=== PATIENT | male | born 1930 | race Caucasian/White ===

== ENCOUNTER 2018-04-03 18:54 | Inpatient (IN) | payer BC, OTHER ==
--- NOTE | 2018-04-03 19:57 | PDOC ---
History of Present Illness <Tayla White Carlos - Last Filed: 04/03/18 22:55> - General History Source: Patient, Spouse Exam Limitations: No Limitations - History of Present Illness Initial Comments: 04/03/18 19:46 Pt. is an 87 y.o. M w/ PMHx. of distant CVA (residual left sided weakness), chronic left carotid occlusion, HTN, HLD, and hemorrhoids presents with rectal bleeding. Per Pt.'s who is the better historian, Pt. started bleeding yesterday and it has not stopped. Pt.'s stated that she knows the difference between spotting on toilet paper from the Pt.'s hemorrhoids and a larger bleed. She noticed blood in the toilet but was unable to quantify the amount of blood. Pt. sometimes strains when using the bathroom. Pt. has never had a colonoscopy. Pt. currently takes Warfarin 4mg HS but did not take tonight' s dose because of the bleeding. Pt. endorses spitting up phelgm in the ED but denies nausea or vomit. The phlegm did not contain any blood or discoloration. Pt. denies any bleeding in the gums or hemoptysis. Pt. denies any dizziness, lightheadedness, numbness/tingling, chest pain, abdominal pain, shortness of breath, palpitations, head ache, sudden changes in vision or any other complaints at this time except for a bed sore which is uncomfortable for him. 04/03/18 20:26 Troponin, CBC, INR, Type & Screen, Stool Guaic, Lactated Ringer @ 125ml/hr, IV Protonix, EKG and CXR were ordered. BP rechecked and found to be 110/67. EKG significant for A. Fib with HR in 100s. Case discussed with Dr. Wright(GI) and Dr. Jones(ICU), Pt. accepted to ICU. Timing/Duration: 24 hours Associated Symptoms: reports: denies symptoms Aspirin Received prior to arrival: Yes: no aspirin today Beta Carolina Taken at Home(Core Measure): Yes <Brandon Jose - Last Filed: 04/03/18 23:49> - General Chief Complaint: Rectal Bleed Stated Complaint: Rectal Bleed Time Seen by Provider: 12/30/18 19:09 Past History <Tayla White - Last Filed: 04/03/18 22:55> - Travel Traveled outside of the country in the last 30 days: No Close contact w/someone who was outside of country & ill: No - Past Medical History Asthma: No Cardiac Disorders: No CVA: Yes (left sided weakness) COPD: No Diabetes: No GI Disorders: Yes (hemorrhoids ) HTN: Yes Hypercholesterolemia: Yes Other medical history: left carotid occlusion - Surgical History GI Surgery: Yes (Polypectomy of the esophagus ) - Suicide/Smoking/Psychosocial Hx Smoking History: Former smoker Have you smoked in the past 12 months: No Information on smoking cessation initiated: No Hx Alcohol Use: No Drug/Substance Use Hx: No Hx Substance Use Treatment: No <Brandon Jose - Last Filed: 04/03/18 23:49> - Past Medical History Allergies/Adverse Reactions: Allergies Allergy/AdvReac Type Severity Reaction Status Date / Time No Known Allergies Allergy Verified 04/03/18 20:16 Home Medications: Ambulatory Orders Atorvastatin Ca [Lipitor] 20 mg PO DAILY 04/03/18 Diltiazem [Cardizem -] 120 mg PO DAILY 04/03/18 Latanoprost/Pf [Latanoprost 0.005% Eye Drop] 1 drop OU HS 04/03/18 Sertraline HCl [Zoloft -] 50 mg PO DAILY 04/03/18 Spironolactone [Aldactone] 25 mg PO DAILY 04/03/18 Torsemide [Demadex -] 20 mg PO BID 04/03/18 Warfarin Sodium 4 mg PO HS 04/03/18 Review of Systems - Review of Systems Able to Perform ROS?: Yes Is the patient limited Georgian proficient: No Constitutional: No: Symptoms Reported HEENTM: No: Symptoms Reported Respiratory: No: Symptoms reported Cardiac (ROS): No: Symptoms Reported ABD/GI: Yes: Rectal Bleeding. No: Symptoms Reported : No: Symptoms Reported Musculoskeletal: No: Symptoms Reported Integumentary: Yes: Other (right buttock bed sore ) Neurological: No: Symptoms reported <Brandon Jose - Last Filed: 04/03/18 23:49> *Physical Exam - Vital Signs Last Vital Signs Temp Pulse Resp BP Pulse Ox 97.9 F 78 18 110/67 95 04/03/18 19:07 04/03/18 19:07 04/03/18 19:07 04/03/18 20:30 04/03/18 20:45 <Tayla White - Last Filed: 04/03/18 22:55> - Vital Signs Last Vital Signs Temp Pulse Resp BP Pulse Ox 97.9 F 78 18 86/59 L 90 L 04/03/18 19:07 04/03/18 19:07 04/03/18 19:07 04/03/18 19:07 04/03/18 19:07 - Physical Exam General Appearance: Yes: Appropriately Dressed, Apparent Distress, Obese HEENT: positive: SHEEBA, Normal ENT Inspection, Normal Voice, Symmetrical. negative: Pharyngeal Erythema, Tonsillar Exudate, Tonsillar Erythema, Sinus Tenderness Neck: positive: Supple Respiratory/Chest: positive: Lungs Clear, Normal Breath Sounds, Rapid RR. negative: Accessory Muscle Use, Crackles, Rales, Wheezing Cardiovascular: positive: Regular Rhythm, Regular Rate, S1, S2, Tachycardia. negative: JVD, Murmur Vascular Pulses: Dorsalis-Pedis (R): 1+ ( ), Doralis-Pedis (L): 1+ Gastrointestinal/Abdominal: positive: Normal Bowel Sounds, Soft. negative: Tender, Distended, Guarding, Rebound, Tenderness Male Genitalia: positive: normal prostate Rectal Exam: positive: NL Prostate, normal rectal tone, heme positive stool. negative: normal exam Musculoskeletal: positive: Normal Inspection. negative: CVA Tenderness Extremity: positive: Normal Capillary Refill, Normal Inspection, Coldness (in hands and LE up to the knees ), Erythema (b/l on knees ). negative: Calf Tenderness, Inflammation Integumentary: positive: Dry, Warm, Erythema (over right buttocks and around skin lesions ), Cold (in LE up to the knees ), Ecchymosis, Bruising Neurologic: positive: Fully Oriented, Alert, Normal Mood/Affect, Normal Response , Respond to painful stimul, Numbness (LLE), Sensory Deficit (LLE no sensation from knee to feet), Finger to Nose (decreased speed and accuracy with left arm ) . negative: Facial Droop, Confused, Disoriented <Brandon Jose - Last Filed: 04/03/18 23:49> Moderate Sedation - Procedure Monitoring Vital Signs: Procedure Monitoring Vital Signs Temperature 97.9 F 04/03/18 19:07 Pulse Rate 78 04/03/18 19:07 Respiratory Rate 18 04/03/18 19:07 Blood Pressure 110/67 04/03/18 20:30 O2 Sat by Pulse Oximetry (%) 95 04/03/18 20:45 <Tayla Whiteeloy - Last Filed: 04/03/18 22:55> - Procedure Monitoring Vital Signs: Procedure Monitoring Vital Signs Temperature 97.9 F 04/03/18 19:07 Pulse Rate 78 04/03/18 19:07 Respiratory Rate 18 04/03/18 19:07 Blood Pressure 86/59 L 04/03/18 19:07 O2 Sat by Pulse Oximetry (%) 90 L 04/03/18 19:07 <Brandon Jose - Last Filed: 04/03/18 23:49> ED Treatment Course - LABORATORY CBC & Chemistry Diagram: 04/03/18 20:30 04/03/18 21:45 - ADDITIONAL ORDERS Additional order review: Laboratory Results 04/03/18 04/03/18 04/03/18 20:30 20:30 20:30 PT with INR INR Sodium 138 Potassium 6.1 H* Chloride 107 Carbon Dioxide 21 Anion Gap 11 BUN 68 H Creatinine 2.5 H Creat Clearance w eGFR 24.61 Random Glucose 135 H Calcium 8.7 Total Bilirubin 0.3 AST 25 ALT 28 Alkaline Phosphatase 92 Total Protein 6.8 Albumin 3.4 Stool Occult Blood Positive Crossmatch See Detail 04/03/18 20:30 PT with INR 70.70 H INR 5.89 H* Sodium Potassium Chloride Carbon Dioxide Anion Gap BUN Creatinine Creat Clearance w eGFR Random Glucose Calcium Total Bilirubin AST ALT Alkaline Phosphatase Total Protein Albumin Stool Occult Blood Crossmatch 04/03/18 20:30 RBC 2.94 L MCV 92.9 MCHC 32.6 RDW 15.1 MPV 8.9 Neutrophils % 91.8 H Lymphocytes % 3.4 L D Monocytes % 3.6 L Eosinophils % 0.0 D Basophils % 1.2 - RADIOLOGY Radiology Studies Ordered: Category Date Time Status CHEST X-RAY PORTABLE* [RAD] Stat Radiology 04/03/18 19:15 Taken - Medications Given in the ED: ED Medications Discontinued Medications Generic Name Dose Route Start Last Admin Trade Name Freq PRN Reason Stop Dose Admin Pantoprazole Sodium 40 mg 04/03/18 20:22 04/03/18 20:44 Protonix Iv IVPUSH 04/03/18 20:23 40 mg ONCE ONE Administration <Tayla White - Last Filed: 04/03/18 22:55> - LABORATORY CBC & Chemistry Diagram: 04/03/18 20:30 04/03/18 21:45 <Brandon Jose - Last Filed: 04/03/18 23:49> *DC/Admit/Observation/Transfer - Discharge Dispostion Decision to Admit order: Yes Decision to Admit order Date/Time: 04/03/18 22:54 <Tayla White - Last Filed: 04/03/18 22:55> - Discharge Dispostion Decision to Admit order: Yes <Brandon Jose - Last Filed: 04/03/18 23:49> Diagnosis at time of Disposition: GIB (gastrointestinal bleeding), Supratherapeutic INR, Anemia, Hyperkalemia, Acute kidney insufficiency - Discharge Dispostion Condition at time of disposition: Guarded
[2018-04-03] MEDS ORDERED: PANTOPRAZOLE SODIUM 40 MG VIAL IVPUSH ONE (20:22)
[2018-04-03] MEDS ORDERED: LACTATED RINGERS SOLUTION 1,000 ML/1,000 ML INFUS.BAG IV SCH (20:30)
--- NOTE | 2018-04-03 20:30 | PDOC ---
Attending Attestation - Resident Resident Name: Brandon Jose - ED Attending Attestation I have performed the following: I have examined & evaluated the patient, The case was reviewed & discussed with the resident, I agree w/resident's findings & plan - [facility] HPI: 04/03/18 21:51 Mr. Upton is a 87 year old male with a past medical history significant for CHF, CVA ( residual left-sided weakness) on Warfarin 4 mg q night, and the last dose was last night, HTN, HLD, skin lesion, hx of hemorrhoids presents to the emergency department s/p episodes of blood in the toilet. Per , the past day and a half she has noticed blood in the toilet following episodes of bowel movement. The is unable to quantify the blood. The suggests the bleeding might be secondary to straining while using the bathroom. She states at baseline the patient does having blood on the toilet paper after using the bathroom secondary to hemorrhoids. Denies taking AC today. Denies prior colonoscopy. Denies diarrhea, melena, nausea, vomiting, hematemesis, hemoptysis. Allergies: NKDA Social history: Former smoker, no alcohol or drug use reported. Surgical history: Polypectomy PCP: Dr. Andria Rizo. - Physicial Exam PE: 04/03/18 21:52 malaised appearing, on supp O2. PERRL, EOMI, dry, pale conjunctiva, anicteric; neck supple. lungs clear, RRR, abdomen soft nontender. CARY x4, 4/5 left sided strength 2/2 prior stroke. No peripheral edema. pale color, cool and dry to touch. rectal exam by resident, +shiraz maroon colored blood/ no stool - Critical Care Time Total Critical Care Time: 60 (GIB) Critical Care Statement: The care of this patient involved high complexity decision making to prevent further life threatening deterioration of the patient 's condition and/or to evaluate & treat vital organ system(s) failure or risk of failure. - Medical Decision Making 04/03/18 21:54 See HPI for details Vital signs reviewed, no fever, initially hypotensive and low O2, given supp O2 for comfort and improved, BP improved with gentle hydration Prior notes reviewed, including admissions, discharges and consultations. laboratory results and imaging reviewed, basic labs and lytes with supratherapeutic INR >5 in setting of bleed and anemia, symptomatic. leukocytosis, 16K, stress reaction from bleed. CXR_no acute pathology Cardiac panel_positive trop 0.06-0.07 - no ASA given due to GIB, likely demand. EKG sinus tachy, no interval abnormalities, narrow QRS, slight ST depression in I,AVL. Nonspecific T wave abnormalities ED course: transfuse PRBCs with new anemia 2/2 GIB. lasix in between to prevent TACO/fluid overload. elevated INR, +GIB, so will give 2 units FFP and Vit K for now and reverse - pt consented with for blood/product transfusion in setting of bleed/INR elevation Protonix 40mg x1 MELVIN noted, with hyperkalemia of >6. administered for lasix, albuterol nebs 10mg , insulin/dextrose and calcium. no EKG changes, likely from new MELVIN/ insufficiency. - GI cs with Dr Wright, for GIB, (lower vs upper, no prior colonoscopy). - ICU cs for GIB, hemodynamic monitoring. accepted to ICU for higher level of care Dispo: Admit for GIB, supratherapeutic INR and symptomatic anemia, hyperkalemia/ MELVIN.. Discussed results and management plan with pt and family member at bedside , agree with impression and plan 04/04/18 00:00
[2018-04-03] MEDS ORDERED: PANTOPRAZOLE SODIUM 40 MG/100 ML BAG IVPB ONE (20:37)
[2018-04-03 20:41] LABS: BASO % 1.2 % (0-2.0); HEMATOCRIT 27.3 % (35.4-49); HEMOGLOBIN 8.9 GM/dL (11.7-16.9); LYMPH % 3.4 % (8-40); MCH 30.3 pg (25.7-33.7); MCHC 32.6 g/dl (32.0-35.9); MEAN CELL VOLUME 92.9 fl (80-96); MEAN PLT VOLUME 8.9 fl (7.5-11.1); MONO % 3.6 % (3.8-10.2); NEUT % 91.8 % (42.8-82.8); PLATELET COUNT 349 K/MM3 (134-434); RBC 2.94 M/mm3 (4.00-5.60); RDW 15.1 % (11.9-15.9)
[2018-04-03 20:53] LABS: PROTHROMBIN TIME (PATIENT) 70.7 SEC (9.7-13.0)
[2018-04-03 21:20] LABS: ALBUMIN 3.4 g/dl (3.4-5.0); ALK PHOS 92 U/L (45-117); ANION GAP 11 MMOL/L (8-16); BILIRUBIN,TOTAL 0.3 mg/dL (0.2-1); BLOOD UREA NITROGEN 68 mg/dL (7-18); CALCIUM 8.7 mg/dL (8.5-10.1); CHLORIDE 107 mmol/L (98-107); CO2 21 mmol/L (21-32); CREATININE 2.5 mg/dL (0.55-1.3); GLUCOSE,RANDOM 135 mg/dL (74-106); SGOT/AST 25 U/L (15-37); SGPT/ALT 28 U/L (13-61); SODIUM 138 mmol/L (136-145); TOT PROT 6.8 g/dl (6.4-8.2)
[2018-04-03 21:23] LABS: POTASSIUM 6.1 mmol/L (3.5-5.1)
[2018-04-03 21:25] LABS: INR 5.89 (0.83-1.09)
[2018-04-03] MEDS ORDERED: PHYTONADIONE 5 MG TABLET PO ONE ×3 (21:33→21:58)
[2018-04-03] MEDS ORDERED: PHYTONADIONE 5 MG TABLET ONE ×2 (21:41→23:40)
[2018-04-03] MEDS ORDERED: FUROSEMIDE 40 MG/4 ML INJECTABLE VIAL IVPUSH ONE (21:57)
[2018-04-03 22:10] LABS: ANISOCYTOSIS 1+; MACROCYTOSIS 1+
[2018-04-03 22:11] LABS: PLATELET ESTIMATE ADEQUATE
--- NOTE | 2018-04-03 22:25 | CONSULT ---
Consult Consult Specialty:: Pulm/CCM Referred by:: Dr. Rizo Reason for Consultation:: GI bleed - History of Present Illness History of Present Illness: Briefly, 87 yo elderly M h/o CVA w/ residual L sided weakness, HTN, HLD, and hemorrhoids being evaluated for ICU admission. Patient endorses years of intermittent rectal bleeding and he attributes it to hemorrhoids. However, the bleeding in last 2 days has increased in frequency and amount. It was bright red color and difficult to stop per patient. He's on coumadin 4mg daily and does INR check q1week. Denies headache, dizziness, blurred vision, chest pain, shortness of breath, urinary symptom, fever, or chills. 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 Cardio/Vascular: Yes: HTN, Hyperlipdemia, Other (carotid stenosis) - Alcohol/Substance Use Hx Alcohol Use: No - Smoking History Smoking history: Former smoker Have you smoked in the past 12 months: No Home Medications - Allergies Allergies/Adverse Reactions: Allergies Allergy/AdvReac Type Severity Reaction Status Date / Time No Known Allergies Allergy Verified 04/03/18 20:16 - Home Medications Home Medications: Ambulatory Orders Atorvastatin Ca [Lipitor] 20 mg PO DAILY 04/03/18 Diltiazem [Cardizem -] 120 mg PO DAILY 04/03/18 Latanoprost/Pf [Latanoprost 0.005% Eye Drop] 1 drop OU HS 04/03/18 Sertraline HCl [Zoloft -] 50 mg PO DAILY 04/03/18 Spironolactone [Aldactone] 25 mg PO DAILY 04/03/18 Torsemide [Demadex -] 20 mg PO BID 04/03/18 Warfarin Sodium 4 mg PO HS 04/03/18 Family Disease History - Family Disease History Family Disease History: Heart Disease: Father, CA: Mother (gatric) Review of Systems - Review of Systems Constitutional: reports: No Symptoms Eyes: reports: No Symptoms HENT: reports: No Symptoms Cardiovascular: reports: No Symptoms Respiratory: reports: Cough Gastrointestinal: reports: Rectal Bleeding. denies: Nausea Genitourinary: reports: No Symptoms Neurological: reports: Weakness (L sided residual) Physical Exam Vital Signs: Vital Signs Temperature 97.9 F 04/03/18 19:07 Pulse Rate 78 04/03/18 19:07 Respiratory Rate 18 04/03/18 19:07 Blood Pressure 110/67 04/03/18 20:30 O2 Sat by Pulse Oximetry (%) 95 04/03/18 20:45 Constitutional: Yes: No Distress, Calm Eyes: Yes: Conjunctiva Clear, EOM Intact HENT: Yes: Atraumatic, Normocephalic Neck: Yes: Supple, Trachea Midline Cardiovascular: Yes: Regular Rate and Rhythm Respiratory: Yes: CTA Bilaterally Gastrointestinal: Yes: Normal Bowel Sounds, Soft, Rectal Bleeding. No: Tenderness ...Rectal Exam: Yes: Guaiac Positive Edema: No Peripheral Pulses WNL: Yes Neurological: Yes: Alert, Oriented, Weakness (L sided residual) Labs: CBC, BMP 04/03/18 20:30 Imaging - Results X-ray: Image Reviewed Assessment/Plan 87 yo elderly M h/o CVA w/ residual L sided weakness, HTN, HLD, and hemorrhoids admitted to ICU for bleeding per rectum. GI: bleeding per rectum - hold coumadin - LR @ 125cc/hr - establish 2 18G accesses - IV protonix 40mg - 2 PRBC, vit. 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 Code: atif Jones PGY3 ICU resident Visit type - Emergency Visit Emergency Visit: Yes Care time: The patient presented to the Emergency Department on the above date and was hospitalized for further evaluation of their emergent condition. - New Patient This patient is new to me today: Yes Date on this admission: 04/03/18 - Critical Care Critical Care patient: Yes Total Critical Care Time (in minutes): 35 Critical Care Statement: The care of this patient involved high complexity decision making to prevent further life threatening deterioration of the patient 's condition and/or to evaluate & treat vital organ system(s) failure or risk of failure.
[2018-04-03 22:48] LABS: ANION GAP 10 MMOL/L (8-16); BLOOD UREA NITROGEN 68 mg/dL (7-18); CALCIUM 8.5 mg/dL (8.5-10.1); CHLORIDE 106 mmol/L (98-107); CO2 22 mmol/L (21-32); CREATININE 2.4 mg/dL (0.55-1.3); GLUCOSE,RANDOM 124 mg/dL (74-106); SODIUM 138 mmol/L (136-145)
[2018-04-03 22:51] LABS: POTASSIUM 6.3 mmol/L (3.5-5.1)
[2018-04-03] MEDS ORDERED: CALCIUM GLUCONATE 10% - 1,000 MG/10 ML VIAL IVPB ONE (22:52)
[2018-04-03] MEDS ORDERED: INSULIN REGULAR HUMAN 100 UNITS/ML *VIAL IVPUSH ONE (22:52)
[2018-04-03] MEDS ORDERED: DEXTROSE 50%-WATER - 25 GM/50 ML VIAL IVPUSH ONE (22:53)
[2018-04-03] MEDS: ALBUTEROL SO4 2.5/IPRATROPIUM 0.5 INH SOL 3 ML VIAL.NEB. NEB SCH ×2 (23:30→23:45)
[2018-04-03] MEDS ORDERED: CALCIUM GLUCONATE 10% - 1,000 MG/10 ML VIAL ONE (23:39)
[2018-04-03] MEDS ORDERED: ALBUTEROL SO4 2.5/IPRATROPIUM 0.5 INH SOL 3 ML VIAL.NEB. NEB ONE (23:39)
[2018-04-03] MEDS ORDERED: DEXTROSE 50%-WATER - 25 GM/50 ML VIAL ONE (23:39)
[2018-04-03] MEDS ORDERED: INSULIN REGULAR HUMAN 100 UNITS/ML *VIAL ONE (23:41)
--- NOTE | 2018-04-03 23:41 | HP ---
<Davy Brown - Last Filed: 04/04/18 04:09> CHIEF COMPLAINT: PCP: Dr. Andria Rizo. HISTORY OF PRESENT ILLNESS: pt is poor historian. hx obtained from EMR/ED notes. 87 y.o. M w/ PMH of distant CVA (residual left sided weakness) on Warfarin 4 mg qhs, chronic left carotid occlusion, HTN, HLD, and hemorrhoids presents with rectal bleeding, diarrhea like x2d. Per Pt.'s who is the better historian, Pt. started bleeding yesterday and it has not stopped. Pt.'s stated that she knows the difference between spotting on toilet paper from the Pt.'s hemorrhoids and a larger bleed. She noticed blood in the toilet but was unable to quantify the amount of blood. Pt. sometimes strains when using the bathroom. Pt. has never had a colonoscopy. Pt. currently takes Warfarin 4mg HS but did not take tonight's dose because of the bleeding. Pt. endorses spitting up phlegm in the ED but denies n/v. The phlegm did not contain any blood or discoloration. Pt. denies any bleeding in the gums or hemoptysis. Pt. denies any dizziness, lightheadedness, numbness/tingling, chest pain, abdominal pain, shortness of breath, palpitations, head ache, sudden changes in vision or any other complaints at this time except for a bed sore which is uncomfortable for him. ER course was notable for: (1) ED consulted Dr. Wright(GI) and Dr. Jones(ICU), Pt. accepted to ICU. (2) noted to have hyper K 6.3, pt given cocktail (3)FOBT pos, INR 5.89, Lactic 2.7 Recent Travel: PAST MEDICAL HISTORY: PAST SURGICAL HISTORY: Polypectomy Social History: Smoking: quit 25 yr ago Alcohol: occasional Drugs: denies Family History: Allergies No Known Allergies Allergy (Verified 04/03/18 20:16) HOME MEDICATIONS: Home Medications Medication Instructions Recorded Atorvastatin Ca [Lipitor] 20 mg PO DAILY 04/03/18 Diltiazem [Cardizem -] 120 mg PO DAILY 04/03/18 Latanoprost/Pf [Latanoprost 0.005% 1 drop OU HS 04/03/18 Eye Drop] Sertraline HCl [Zoloft -] 50 mg PO DAILY 04/03/18 Spironolactone [Aldactone] 25 mg PO DAILY 04/03/18 Torsemide [Demadex -] 20 mg PO BID 04/03/18 Warfarin Sodium 4 mg PO HS 04/03/18 REVIEW OF SYSTEMS as per hpi PHYSICAL EXAMINATION Vital Signs - 24 hr 04/03/18 04/03/18 04/03/18 19:07 20:30 20:45 Temperature 97.9 F Pulse Rate 78 Respiratory 18 Rate Blood Pressure 86/59 L Blood Pressure 110/67 [Right Arm] O2 Sat by Pulse 90 L 95 Oximetry (%) GENERAL: AOX3 NAD HEAD: NCAT EYES: sclera anicteric, conjunctiva clear. No lid lag. EARS, NOSE, THROAT: oropharynx clear without exudates. Moist mucous membranes. NECK: Normal range of motion, supple without lymphadenopathy, JVD, or masses. LUNGS: CTAB HEART: tachy irregular, normal S1 and S2 without murmur, rub or gallop. ABDOMEN: Soft, NTND, normoactive bowel sounds, no guarding, no rebound, no masses. MUSCULOSKELETAL: Normal range of motion at all joints. No bony deformities or tenderness. UPPER EXTREMITIES: 2+ pulses, warm, well-perfused. No cyanosis. No clubbing. No peripheral edema. LOWER EXTREMITIES: 2+ pulses, warm, well-perfused. No calf tenderness. No peripheral edema. decreased sensation strength on L side chronic NEUROLOGICAL: Cranial nerves II-XII intact. Normal speech. decreased sensation strength on L side chronic PSYCHIATRIC: Cooperative. Good eye contact. Appropriate mood and affect. SKIN: Warm, dry, normal turgor, no rashes or lesions noted, normal capillary refill. Laboratory Results - last 24 hr 04/03/18 04/03/18 04/03/18 20:30 20:30 20:30 WBC 16.0 H RBC 2.94 L Hgb 8.9 L Hct 27.3 L D MCV 92.9 MCH 30.3 MCHC 32.6 RDW 15.1 Plt Count 349 D MPV 8.9 Absolute Neuts (auto) 14.7 H Neutrophils % 91.8 H Neutrophils % (Manual) 86.0 H Band Neutrophils % 4.0 Lymphocytes % 3.4 L D Lymphocytes % (Manual) 7.0 L Monocytes % 3.6 L Monocytes % (Manual) 3 L Eosinophils % 0.0 D Eosinophils % (Manual) 1.0 Basophils % 1.2 Nucleated RBC % 0 Hypochromia 2+ Platelet Estimate Adequate Platelet Comment Large platelets Anisocytosis 1+ Microcytosis 1+ Macrocytosis 1+ PT with INR 70.70 H INR 5.89 H* Sodium Potassium Chloride Carbon Dioxide Anion Gap BUN Creatinine Creat Clearance w eGFR Random Glucose Lactic Acid Calcium Total Bilirubin AST ALT Alkaline Phosphatase Troponin I Total Protein Albumin Stool Occult Blood Positive Blood Type Antibody Screen Crossmatch 04/03/18 04/03/18 04/03/18 20:30 20:30 20:30 WBC RBC Hgb Hct MCV MCH MCHC RDW Plt Count MPV Absolute Neuts (auto) Neutrophils % Neutrophils % (Manual) Band Neutrophils % Lymphocytes % Lymphocytes % (Manual) Monocytes % Monocytes % (Manual) Eosinophils % Eosinophils % (Manual) Basophils % Nucleated RBC % Hypochromia Platelet Estimate Platelet Comment Anisocytosis Microcytosis Macrocytosis PT with INR INR Sodium 138 Potassium 6.1 H* Chloride 107 Carbon Dioxide 21 Anion Gap 11 BUN 68 H Creatinine 2.5 H Creat Clearance w eGFR 24.61 Random Glucose 135 H Lactic Acid Calcium 8.7 Total Bilirubin 0.3 AST 25 ALT 28 Alkaline Phosphatase 92 Troponin I 0.06 H Total Protein 6.8 Albumin 3.4 Stool Occult Blood Blood Type O POSITIVE Antibody Screen Negative Crossmatch See Detail 04/03/18 04/03/18 21:45 21:45 WBC RBC Hgb Hct MCV MCH MCHC RDW Plt Count MPV Absolute Neuts (auto) Neutrophils % Neutrophils % (Manual) Band Neutrophils % Lymphocytes % Lymphocytes % (Manual) Monocytes % Monocytes % (Manual) Eosinophils % Eosinophils % (Manual) Basophils % Nucleated RBC % Hypochromia Platelet Estimate Platelet Comment Anisocytosis Microcytosis Macrocytosis PT with INR INR Sodium 138 Potassium 6.3 H* Chloride 106 Carbon Dioxide 22 Anion Gap 10 BUN 68 H Creatinine 2.4 H Creat Clearance w eGFR 25.80 Random Glucose 124 H Lactic Acid 2.7 H* Calcium 8.5 Total Bilirubin AST ALT Alkaline Phosphatase Troponin I 0.07 H Total Protein Albumin Stool Occult Blood Blood Type Antibody Screen Crossmatch EKG significant for A. Fib with HR in 100s. narrow QRS, slight ST depression in I,AVL. Nonspecific T wave abnormalities ASSESSMENT/PLAN: 87 y.o. M w/ PMH of distant CVA (residual left sided weakness) on Warfarin 4 mg qhs, CHF, chronic left carotid occlusion, HTN, HLD, and hemorrhoids presents with BRBPR diarrhea like x2d. Acute GIB w/ acute diarrheal illness w/ Supratherapeutic INR: bleeding per rectum - hold coumadin - monitor INR - LR @ 125cc/hr - IV protonix 40 BID - 2 PRBC, vit. K 10mg and 1 FFP ordered in ED - NPO except meds - GI consult - ICU monitoring - hold diuretics - monitor H/H, CBC q6h -monitor for active bleeding - STAT noncon CT A/P to r/o collitis, etc.... Given leukocytosis and diarrhea will cover empirically with zosyn at least until we get imaging leukocytosis w/ neutrophilia - w/ acute diarrheal illness - possibly reactive to acute bleeding - cannot r/o underlying infection - CXR unremarkable, will obtain UA - STAT noncon CT A/P to r/o collitis, etc.... Given leukocytosis and diarrhea will cover empirically with zosyn at least until we get imaging MELVIN on CKD stage 4 - prerenal 2/2 hypotension from GIB? No improvement with initial hydration. Suspecting is 2/2 potential ATN given the hypotension monitor Cr IVF renal consult Check FeUrea, Renal U/S hyperkalemia and lactic acidosis - likely 2/2 prerenal MELVIN 2/2 hypotension from GIB - s/p calcium gluconate IVPB, albuterol , D50 and insulin, in ED -improving 6.3 to 5.6 - f/u repeat BMP - trend lactate and Cr HLD/HTN/ A-fib on warfarin -Hold antihypertensives, statin as strict NPO; restart when clinically appropriate. Hold rate control until stability is ascertained. elevated trop - likely demand ischemia - trend trop EKG significant for A. Fib with HR in 100s. narrow QRS, slight ST depression in I,AVL. Nonspecific T wave abnormalities CVA w/ residual L sided weakness - stable -Hold home meds CHF -monitor fluid management - obtaining outside echoes if available vs. repeating here if needed. FEN LR @ 125cc/hr replete prn NPO except meds ppx SCDs IV protonix 40 BID Code: full Dispo: ICU Visit type - Emergency Visit Emergency Visit: Yes ED Registration Date: 04/03/18 Care time: The patient presented to the Emergency Department on the above date and was hospitalized for further evaluation of their emergent condition. - New Patient This patient is new to me today: Yes Date on this admission: 04/04/18 - Critical Care Critical Care patient: Yes Total Critical Care Time (in minutes): 40 Critical Care Statement: The care of this patient involved high complexity decision making to prevent further life threatening deterioration of the patient 's condition and/or to evaluate & treat vital organ system(s) failure or risk of failure. <Heri Eric - Last Filed: 04/25/18 19:34> Seen and examined;agree with all the above aside form as edited by me in my own note. Thank you. Was present for all vital parts of encounter; plan discussed with me. Agree with above as documented by the resident.
[2018-04-04] MEDS: ALBUTEROL SO4 2.5/IPRATROPIUM 0.5 INH SOL 3 ML VIAL.NEB. NEB SCH ×2 (00:15)
[2018-04-04 01:51] LABS: URINE APPEARANCE CLEAR; URINE BILIRUBIN NEGATIVE (<2.0 mg/dL); URINE COLOR LTYELLOW; URINE GLUCOSE (UA) NEGATIVE (NEGATIVE); URINE KETONE NEGATIVE (NEGATIVE); URINE LEUK ESTERASE 2+ (NEGATIVE); URINE NITRITE NEGATIVE (NEGATIVE); URINE PROTEIN NEGATIVE (NEGATIVE); URINE UROBILINOGEN NEGATIVE mg/dL (0.2-1.0)
[2018-04-04 02:09] LABS: EPI CELLS RARE /HPF (FEW); URINE HYALINE CAST 58 /lpf; URINE MUCUS RARE
[2018-04-04 02:15] LABS: ANION GAP 10 MMOL/L (8-16); BLOOD UREA NITROGEN 68 mg/dL (7-18); CALCIUM 8.8 mg/dL (8.5-10.1); CHLORIDE 109 mmol/L (98-107); CO2 22 mmol/L (21-32); CREATININE 2.5 mg/dL (0.55-1.3); GLUCOSE,RANDOM 55 mg/dL (74-106); POTASSIUM 5.6 mmol/L (3.5-5.1); SODIUM 141 mmol/L (136-145)
[2018-04-04] MEDS ORDERED: SODIUM CHLORIDE 1,000 ML IV STA (02:49)
--- NOTE | 2018-04-04 02:49 | PN ---
Teaching Attending Note Name of Resident: Anders Jay ATTENDING PHYSICIAN STATEMENT I saw and evaluated the patient. I reviewed the resident's note and discussed the case with the resident. I agree with the resident's findings and plan as documented. SUBJECTIVE: Seen and examined; please see resident note for further historical documentation. Briefly, this is an 87 y/o CM with a PMH significant for dementia, CHF (unknown EF), CVA with L-sided weakness, HTN, HLD, Afib on warfarin, hemorrhoids. He presents at the behest of his for rectal bleeding with diarrhea. The aforementioned sx have been going on for a few days but he hasn't had any bleeds since yesterday. It is accompanied by watery diarrhea, though what is coming out is mostly blood. He has no other complaints. He is a poor historian. ICU service accepted him in the ER. 10 sys ROS done and negative aside from HPI PMH and PSH reviewed FH asked and noncontributory Socially significant for his is responsible for his healthcare 2/2 dementia ; no current alcohol or tobacco abuse. Medication list reviewed; pending reconciliation. OBJECTIVE: VS, labs, imaging reviewed NAD, AAO, resting in bed Mildly tender, NT, +BS Lungs CTAB w/ sym exp CN2-12 wnl, no fnd ASSESSMENT AND PLAN: Patient with complex PMH presents with coagulopathy with GIB and positive lactate; pressures were unstable so he was brought to the ICU. 1) Acute GI Bleed (BRBPR) with acute diarrheal illness -Lower GIB vs. brisk upper. No s/s cirrhosis. Protonix IV and GI consultation ; transfuse 1 unit stat and keep one on hold. Monitor q6h CBC and monitor pressures. Cardiac monitoring. Likely will requiure procedure. Strict NPO. Reverse INR and hold warfarin. Monitor on the ICU. Appreciate subspecialty services' presence on this case. -Followup STAT noncontrast abdominal CT to r/o collitis, etc. Given white count , diarrhea will cover empirically with zosyn at least until we get imaging 2) Supratherapeutic INR -Likely due to warfarin use; hold. Given FFP and vitamin K for reversal in ER. Monitor INR closely. Other reversal agent not available here I am told. Consider discussion with patient once stabilized regarding risks and benefits of continuing warfarin. 3) Elevated Lactate -Likely due to increased O2 tissue demand 2/2 #1, #3. Hydrating, transfusing a unit, repeating lactate, monitor. 4) MELVIN -Normal Cr 4 years ago -Could be prerenal, but no improvement with initial hydration. Suspecting is secondary to potential ATN given the hypotension. Check FeUrea, BRUCE, and consult nephrology. Monitor Is and Os, avoid nephrotoxic agents. 5) Afib on warfarin -Consider reevaluating AC use; discuss with him and , possibly PCP. Hold rate control until stability is ascertained. 6) CHF hx -Judicious fluid management; consider obtaining outside echoes if available ( patient doesn't know) vs. repeating here if needed. 7) HTN -Hold antihypertensives; resume when clinically appropriate 8) HLD -Hold statin as strict NPO; restart when clinically appropriate. 9) Prior CVA -Hold home meds 10) Hyperkalemia -Rechecked; not hemolyzed. Given the insulin protocol and did fall appropriately. Continue to follow BMP; etiology likely 2/2 renal disease. DVT px: SCDs GI px: on protonix FENA -Currently bolusing, blood -PRN replete -NPO -OOB2C with assist Full Code
[2018-04-04] MEDS: PIPERACILLIN/TAZOB 2.25 GM 2.25 GM in DEXTROSE 5%-WATER - 50 ML IVPB SCH ×3 (07:39→15:57)
[2018-04-04 08:14] LABS: BASO % 0.5 % (0-2.0); HEMATOCRIT 29.1 % (35.4-49); HEMOGLOBIN 9.6 GM/dL (11.7-16.9); MCH 29.8 pg (25.7-33.7); MEAN CELL VOLUME 90.3 fl (80-96); MEAN PLT VOLUME 8.3 fl (7.5-11.1); MONO % 7.5 % (3.8-10.2); PLATELET COUNT 269 K/MM3 (134-434); RBC 3.22 M/mm3 (4.00-5.60); RDW 15.1 % (11.9-15.9); WHITE BLOOD COUNT 11.1 K/mm3 (4.0-10.0)
[2018-04-04 08:39] LABS: INR 2.94 (0.83-1.09); PROTHROMBIN TIME (PATIENT) 35.1 SEC (9.7-13.0)
[2018-04-04 08:42] LABS: ACTIVATED PTT 33.7 SECONDS (25.2-36.5)
[2018-04-04 08:55] LABS: ALBUMIN 2.9 g/dl (3.4-5.0); ALK PHOS 79 U/L (45-117); ANION GAP 9 MMOL/L (8-16); BILIRUBIN,TOTAL 0.8 mg/dL (0.2-1); BLOOD UREA NITROGEN 61 mg/dL (7-18); CALCIUM 8.6 mg/dL (8.5-10.1); CHLORIDE 109 mmol/L (98-107); CO2 21 mmol/L (21-32); CREATININE 2.2 mg/dL (0.55-1.3); GLUCOSE,RANDOM 122 mg/dL (74-106); MAGNESIUM 2.3 mg/dL (1.8-2.4); PHOSPHOROUS 3.4 mg/dL (2.5-4.9); POTASSIUM 5.2 mmol/L (3.5-5.1); SGOT/AST 34 U/L (15-37); SGPT/ALT 24 U/L (13-61); SODIUM 139 mmol/L (136-145); TOT PROT 5.9 g/dl (6.4-8.2)
[2018-04-04] MEDS ORDERED: PIPERACILLIN/TAZOBACTAM 2.25 GM VIAL IVPB ONE ×2 (09:29→14:54)
[2018-04-04] MEDS ORDERED: DEXTROSE 5%-WATER - 50 ML IVPB ONE ×2 (09:29→14:54)
[2018-04-04] MEDS: PANTOPRAZOLE SODIUM 40 MG VIAL IVPUSH SCH ×2 (09:34→21:14)
[2018-04-04] MEDS ORDERED: PANTOPRAZOLE SODIUM 40 MG VIAL IVPUSH SCH (10:00)
[2018-04-04] MEDS ORDERED: SERTRALINE HCL 50 MG TABLET (FP) PO SCH (10:00)
[2018-04-04] MEDS ORDERED: SPIRONOLACTONE 25 MG TABLET (FP) PO SCH (10:00)
[2018-04-04] MEDS ORDERED: MUPIROCIN 2% TOPICAL OINTMENT FOR DECOLONIZATION NS SCH (10:00)
[2018-04-04] MEDS ORDERED: TORSEMIDE 20 MG TABLET (FP) PO SCH (10:00)
--- NOTE | 2018-04-04 11:36 | PN ---
Physical Exam: SUBJECTIVE: Patient seen and examined at bedside. No acute events overnight, no further bleeding, no pain, no complaints otherwise. OBJECTIVE: Vital Signs Period Temp Pulse Resp BP Sys/Daniel Pulse Ox Last 24 Hr 97.8 F-98.9 F 78-116 13-21 77-118/45-85 90-99 GENERAL: A&Ox3, NAD HEAD: NC/AT EYES: PERRLA, EOMI ENT: MMM NECK: Trachea midline, full range of motion, supple. LUNGS: CTA b/l HEART: tachycardic, irregular rhythm ABDOMEN: +bs, soft, NT, ND EXTREMITIES: 2+ pulses, warm, well-perfused, no edema. NEUROLOGICAL: edge trimmer II-XII intact b/l, mildly decreased strength and sensation with spasticity throughout LUE and LLE PSYCH: Normal mood, normal affect. SKIN: Warm, dry, normal turgor, no rashes or lesions noted Laboratory Results - last 24 hr 04/03/18 04/03/18 04/03/18 01:40 20:30 20:30 WBC 16.0 H RBC 2.94 L Hgb 8.9 L Hct 27.3 L D MCV 92.9 MCH 30.3 MCHC 32.6 RDW 15.1 Plt Count 349 D MPV 8.9 Absolute Neuts (auto) 14.7 H Neutrophils % 91.8 H Neutrophils % (Manual) 86.0 H Band Neutrophils % 4.0 Lymphocytes % 3.4 L D Lymphocytes % (Manual) 7.0 L Monocytes % 3.6 L Monocytes % (Manual) 3 L Eosinophils % 0.0 D Eosinophils % (Manual) 1.0 Basophils % 1.2 Nucleated RBC % 0 Hypochromia 2+ Platelet Estimate Adequate Platelet Comment Large platelets Anisocytosis 1+ Microcytosis 1+ Macrocytosis 1+ PT with INR 70.70 H INR 5.89 H* PTT (Actin FS) Sodium Potassium Chloride Carbon Dioxide Anion Gap BUN Creatinine Creat Clearance w eGFR Random Glucose Lactic Acid Calcium Phosphorus Magnesium Total Bilirubin AST ALT Alkaline Phosphatase Troponin I Total Protein Albumin Urine Color Ltyellow Urine Appearance Clear Urine pH 5.0 Ur Specific [place] 1.012 Urine Protein Negative Urine Glucose (UA) Negative Urine Ketones Negative Urine Blood Negative Urine Nitrite Negative Urine Bilirubin Negative Urine Urobilinogen Negative Ur Leukocyte Esterase 2+ H Urine WBC (Auto) 3 Urine RBC (Auto) <1 Ur Epithelial Cells Rare Hyaline Casts 58 Urine Mucus Rare Urine Creatinine Stool Occult Blood Blood Type Antibody Screen Crossmatch 04/03/18 04/03/18 04/03/18 20:30 20:30 20:30 WBC RBC Hgb Hct MCV MCH MCHC RDW Plt Count MPV Absolute Neuts (auto) Neutrophils % Neutrophils % (Manual) Band Neutrophils % Lymphocytes % Lymphocytes % (Manual) Monocytes % Monocytes % (Manual) Eosinophils % Eosinophils % (Manual) Basophils % Nucleated RBC % Hypochromia Platelet Estimate Platelet Comment Anisocytosis Microcytosis Macrocytosis PT with INR INR PTT (Actin FS) Sodium 138 Potassium 6.1 H* Chloride 107 Carbon Dioxide 21 Anion Gap 11 BUN 68 H Creatinine 2.5 H Creat Clearance w eGFR 24.61 Random Glucose 135 H Lactic Acid Calcium 8.7 Phosphorus Magnesium Total Bilirubin 0.3 AST 25 ALT 28 Alkaline Phosphatase 92 Troponin I Total Protein 6.8 Albumin 3.4 Urine Color Urine Appearance Urine pH Ur Specific [place] Urine Protein Urine Glucose (UA) Urine Ketones Urine Blood Urine Nitrite Urine Bilirubin Urine Urobilinogen Ur Leukocyte Esterase Urine WBC (Auto) Urine RBC (Auto) Ur Epithelial Cells Hyaline Casts Urine Mucus Urine Creatinine Stool Occult Blood Positive Blood Type O POSITIVE Antibody Screen Negative Crossmatch See Detail 04/03/18 04/03/18 04/03/18 20:30 21:45 21:45 WBC RBC Hgb Hct MCV MCH MCHC RDW Plt Count MPV Absolute Neuts (auto) Neutrophils % Neutrophils % (Manual) Band Neutrophils % Lymphocytes % Lymphocytes % (Manual) Monocytes % Monocytes % (Manual) Eosinophils % Eosinophils % (Manual) Basophils % Nucleated RBC % Hypochromia Platelet Estimate Platelet Comment Anisocytosis Microcytosis Macrocytosis PT with INR INR PTT (Actin FS) Sodium 138 Potassium 6.3 H* Chloride 106 Carbon Dioxide 22 Anion Gap 10 BUN 68 H Creatinine 2.4 H Creat Clearance w eGFR 25.80 Random Glucose 124 H Lactic Acid 2.7 H* Calcium 8.5 Phosphorus Magnesium Total Bilirubin AST ALT Alkaline Phosphatase Troponin I 0.06 H 0.07 H Total Protein Albumin Urine Color Urine Appearance Urine pH Ur Specific [place] Urine Protein Urine Glucose (UA) Urine Ketones Urine Blood Urine Nitrite Urine Bilirubin Urine Urobilinogen Ur Leukocyte Esterase Urine WBC (Auto) Urine RBC (Auto) Ur Epithelial Cells Hyaline Casts Urine Mucus Urine Creatinine Stool Occult Blood Blood Type Antibody Screen Crossmatch 04/04/18 04/04/18 04/04/18 01:40 01:40 06:00 WBC RBC Hgb Hct MCV MCH MCHC RDW Plt Count MPV Absolute Neuts (auto) Neutrophils % Neutrophils % (Manual) Band Neutrophils % Lymphocytes % Lymphocytes % (Manual) Monocytes % Monocytes % (Manual) Eosinophils % Eosinophils % (Manual) Basophils % Nucleated RBC % Hypochromia Platelet Estimate Platelet Comment Anisocytosis Microcytosis Macrocytosis PT with INR INR PTT (Actin FS) Sodium 141 Potassium 5.6 H Chloride 109 H Carbon Dioxide 22 Anion Gap 10 BUN 68 H Creatinine 2.5 H Creat Clearance w eGFR 24.61 Random Glucose 55 L Lactic Acid 4.8 H* Calcium 8.8 Phosphorus Magnesium Total Bilirubin AST ALT Alkaline Phosphatase Troponin I Total Protein Albumin Urine Color Urine Appearance Urine pH Ur Specific [place] Urine Protein Urine Glucose (UA) Urine Ketones Urine Blood Urine Nitrite Urine Bilirubin Urine Urobilinogen Ur Leukocyte Esterase Urine WBC (Auto) Urine RBC (Auto) Ur Epithelial Cells Hyaline Casts Urine Mucus Urine Creatinine 119.0 H Stool Occult Blood Blood Type Antibody Screen Crossmatch 04/04/18 04/04/18 04/04/18 08:00 08:00 08:00 WBC 11.1 H RBC 3.22 L Hgb 9.6 L Hct 29.1 L MCV 90.3 MCH 29.8 MCHC 33.0 RDW 15.1 Plt Count 269 D MPV 8.3 Absolute Neuts (auto) 9.5 H Neutrophils % 86.0 H Neutrophils % (Manual) Band Neutrophils % Lymphocytes % 6.0 L D Lymphocytes % (Manual) Monocytes % 7.5 D Monocytes % (Manual) Eosinophils % 0.0 Eosinophils % (Manual) Basophils % 0.5 Nucleated RBC % 0 Hypochromia Platelet Estimate Platelet Comment Anisocytosis Microcytosis Macrocytosis PT with INR 35.10 H INR 2.94 H PTT (Actin FS) 33.7 Sodium 139 Potassium 5.2 H Chloride 109 H Carbon Dioxide 21 Anion Gap 9 BUN 61 H Creatinine 2.2 H Creat Clearance w eGFR 28.52 Random Glucose 122 H Lactic Acid Calcium 8.6 Phosphorus 3.4 Magnesium 2.3 Total Bilirubin 0.8 AST 34 ALT 24 Alkaline Phosphatase 79 Troponin I Total Protein 5.9 L Albumin 2.9 L Urine Color Urine Appearance Urine pH Ur Specific [place] Urine Protein Urine Glucose (UA) Urine Ketones Urine Blood Urine Nitrite Urine Bilirubin Urine Urobilinogen Ur Leukocyte Esterase Urine WBC (Auto) Urine RBC (Auto) Ur Epithelial Cells Hyaline Casts Urine Mucus Urine Creatinine Stool Occult Blood Blood Type Antibody Screen Crossmatch 04/04/18 04/04/18 08:00 08:00 WBC RBC Hgb Hct MCV MCH MCHC RDW Plt Count MPV Absolute Neuts (auto) Neutrophils % Neutrophils % (Manual) Band Neutrophils % Lymphocytes % Lymphocytes % (Manual) Monocytes % Monocytes % (Manual) Eosinophils % Eosinophils % (Manual) Basophils % Nucleated RBC % Hypochromia Platelet Estimate Platelet Comment Anisocytosis Microcytosis Macrocytosis PT with INR INR PTT (Actin FS) Sodium Potassium Chloride Carbon Dioxide Anion Gap BUN Creatinine Creat Clearance w eGFR Random Glucose Lactic Acid 1.4 Calcium Phosphorus Magnesium Total Bilirubin AST ALT Alkaline Phosphatase Troponin I 1.11 H* Total Protein Albumin Urine Color Urine Appearance Urine pH Ur Specific [place] Urine Protein Urine Glucose (UA) Urine Ketones Urine Blood Urine Nitrite Urine Bilirubin Urine Urobilinogen Ur Leukocyte Esterase Urine WBC (Auto) Urine RBC (Auto) Ur Epithelial Cells Hyaline Casts Urine Mucus Urine Creatinine Stool Occult Blood Blood Type Antibody Screen Crossmatch Active Medications Generic Name Dose Route Start Last Admin Trade Name Freq PRN Reason Stop Dose Admin Chlorhexidine Gluconate 1 applic 04/04/18 22:00 Hibiclens For Decolonization - TP HS SAKSHI Diltiazem HCl 120 mg 04/04/18 10:00 04/04/18 09:34 Cardizem Cd - PO 120 mg DAILY SAKSHI Administration Lactated Ringer's 1,000 ml in 1,000 mls @ 125 mls/hr 04/03/18 20:30 04/03/18 20:44 Lactated Ringers Solution IV 04/05/18 04:29 125 mls/hr ASDIR SAKSHI Administration Piperacillin Sod/Tazobactam 50 mls @ 100 mls/hr 04/04/18 03:30 04/04/18 09:34 Sod 2.25 gm/ Dextrose IVPB 04/04/18 15:29 100 mls/hr Q6H-IV SAKSHI Administration Protocol Piperacillin Sod/Tazobactam 50 mls @ 100 mls/hr 04/04/18 21:00 Sod 2.25 gm/ Dextrose IVPB Q6H-IV SAKSHI Latanoprost 1 drop 04/04/18 22:00 Xalatan 0.005% Eye Drops - OU HS SAKSHI Mupirocin 1 applic 04/04/18 10:00 04/04/18 09:37 Bactroban Ointment (For Decolonization) - NS 04/09/18 09:59 1 applic BID SAKSHI Administration Pantoprazole Sodium 40 mg 04/04/18 10:00 04/04/18 09:34 Protonix Iv IVPUSH 40 mg BID SAKSHI Administration ASSESSMENT/PLAN: 87 y/o M w/ PMHx CVA w/ residual left-sided deficits, CHF, Afib on warfarin, HTN , HLD, hemorrhoids, p/w BRBPR and diarrhea x 2 days w/ supratherapeutic INR, additionally found to have elevated creatinine and troponemia #GIB -GI following -H/H and hemodynamics stable s/p transfusion of 2U PRBC and 1U FFP -NPO at present -IV protonix -CT a/p pending -appreciate GI consultation, awaiting further recommendations #nephrology -last known Cr in 2013 was normal, now in MELVIN vs. CKD -nephrology following -electrolyte disturbances corrected w/ acute treatment -judicious fluid use -appreciate nephrology consultation, awaiting further recommendations #ID -WBC and lactate normalized, likely reactive rather than infectious -will d/c Zosyn if CT a/p shows no evidence of colitis -no need for ID consult at this time #CV -troponemia worsening, likely 2/2 demand ischemia, will trend -INR 5.59->2.94 -hold warfarin, trend INR -rate control w/ diltiazem -will need telemetry monitoring upon d/c from ICU #FEN -no IVF at present -monitor and correct electrolytes -NPO #PPx -DVT: SCDs -GI: IV Protonix #code -full #dispo -transfer to telemetry Visit type - Emergency Visit Emergency Visit: No - New Patient This patient is new to me today: Yes Date on this admission: 04/04/18 - Critical Care Critical Care patient: Yes Total Critical Care Time (in minutes): 40 Critical Care Statement: The care of this patient involved high complexity decision making to prevent further life threatening deterioration of the patient 's condition and/or to evaluate & treat vital organ system(s) failure or risk of failure.
--- NOTE | 2018-04-04 11:40 | CON.CARD ---
Consult Consult Specialty:: cardio - History of Present Illness Chief Complaint: blood in stool History of Present Illness: 87 M here with blood in stool. is on warfarin for h/o afib (per dr holley, pt's PMD)--sees dr leahy for cardio. has h/o hemorrhoids with toilet paper spotting but now with ongoing, persistent , more voluminous rectal bleeding. in ER: 1) rapid AF 2) hypotensive to 70s-80s systolic--improved s/p IVF resuscitation 3) INR 5.8 4) lactate 4.8-->normalized after fluids 5) MELVIN with K 6.3 pt denies h/o CAD/PCI or NC. denies cp or sob at any time at home or here. 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 Cardio/Vascular: Yes: HTN, Hyperlipdemia, Other (carotid stenosis) - Alcohol/Substance Use Hx Alcohol Use: No - Smoking History Smoking history: Former smoker Have you smoked in the past 12 months: No Home Medications - Allergies Allergies/Adverse Reactions: Allergies Allergy/AdvReac Type Severity Reaction Status Date / Time No Known Allergies Allergy Verified 04/03/18 20:16 - Home Medications Home Medications: Ambulatory Orders Atorvastatin Ca [Lipitor] 20 mg PO DAILY 04/03/18 Diltiazem [Cardizem -] 120 mg PO DAILY 04/03/18 Latanoprost/Pf [Latanoprost 0.005% Eye Drop] 1 drop OU HS 04/03/18 Sertraline HCl [Zoloft -] 50 mg PO DAILY 04/03/18 Spironolactone [Aldactone] 25 mg PO DAILY 04/03/18 Torsemide [Demadex -] 20 mg PO BID 04/03/18 Warfarin Sodium 4 mg PO HS 04/03/18 Family Disease History - Family Disease History Family Disease History: Heart Disease: Father, CA: Mother (gatric) Review of Systems - Review of Systems Constitutional: denies: Chills, Fever Eyes: denies: Eye Pain HENT: denies: Nasal Congestion Neck: denies: Stiffness Cardiovascular: denies: Palpitations Respiratory: denies: Orthopnea, PND Gastrointestinal: denies: Diarrhea, Vomiting Genitourinary: denies: Burning, Hematuria Musculoskeletal: denies: Muscle Pain Integumentary: denies: Rash Neurological: denies: Numbness, Seizure, Syncope Endocrine: denies: Excessive Sweating Hematology/Lymphatic: denies: Excessive Bleeding Vital Signs: Vital Signs Temperature 97.8 F 04/04/18 02:23 Pulse Rate 103 H 04/04/18 08:00 Respiratory Rate 21 H 04/04/18 08:21 Blood Pressure 115/85 04/04/18 08:00 O2 Sat by Pulse Oximetry (%) 99 04/04/18 08:21 Constitutional: Yes: Well Nourished, No Distress Eyes: No: Sclera Icterus HENT: No: Nasal Congestion Neck: No: Decreased ROM Respiratory: Yes: CTA Bilaterally. No: Accessory Muscle Use, Rales, Wheezes Gastrointestinal: Yes: Normal Bowel Sounds. No: Distention, Hepatomegaly, Palpable Mass, Tenderness Cardiovascular: Yes: Pulse Irregular JVD: No Carotid Bruit: No PMI: Non-Displaced Heart Sounds: Yes: S1, S2. No: Gallop Murmur: No: Systolic Murmur, Diastolic Murmur Musculoskeletal: Yes: Other (No kyphosis) Extremities: No: Cool, Cyanosis Edema: No Peripheral Pulses: 2+ Left Carotid, 2+ Right Carotid, 2+ Left Doralis Pedis, 2+ Right Dorsalis Pedis Integumentary: No: Jaundice Neurological: Yes: Alert, Oriented (x3) Psychiatric: No: Agitated - Other Data Labs, Other Data: CBC, BMP 04/04/18 08:00 04/04/18 08:00 INR, PTT INR 2.94 (0.83-1.09) H 04/04/18 08:00 Troponin, BNP 04/03/18 04/03/18 04/04/18 20:30 21:45 08:00 Troponin I 0.06 H 0.07 H 1.11 H* Troponin, BNP 04/03/18 04/03/18 04/04/18 20:30 21:45 08:00 Troponin I 0.06 H 0.07 H 1.11 H* Laboratory Tests 04/03/18 04/03/18 04/04/18 20:30 21:45 01:40 WBC Hgb Plt Count INR 5.89 H* Sodium 138 Potassium 6.3 H* BUN 68 H Creatinine 2.4 H Lactic Acid 4.8 H* AST ALT Troponin I 0.07 H 04/04/18 04/04/18 04/04/18 08:00 08:00 08:00 WBC 11.1 H Hgb 9.6 L Plt Count 269 D INR 2.94 H Sodium 139 Potassium 5.2 H BUN 61 H Creatinine 2.2 H Lactic Acid AST 34 ALT 24 Troponin I 04/04/18 04/04/18 08:00 08:00 WBC Hgb Plt Count INR Sodium Potassium BUN Creatinine Lactic Acid 1.4 AST ALT Troponin I 1.11 H* Assessment/Plan EKG 04/03 (19:17): poor baseline, ? fib/flutter. HR 106. 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 [address]p ST-Ts I/avL CXR: clear lungs/pleura tele: afib, rapid HRs LGIB: -per GI -INR was high, warfarin reversed (vit K 5mg x 1)--INR coming down Afib: -rapid HR due to active bleeding with hypotension, improving with improved hemodynamics -low BP limits AVN blocking med options. low GFR risk for digoxin -currently hemodynamically stable s/p IVF. will start with low dose IV lopressor (hold cardizem cd). -h/o CVA -on warfarin--being held for LGIB with hemodynamic consequences. resume later after FOC once cleared by GI NSTEMI: -trop 0.07-->1.11 -likely secondary to acute hypotension/tachy, i.e. deman ischemia/Type II NC -rpt ECG, trend enzymes -not a candidate for anti-PLTs, AC or invasive interventions regardless -aggressive treatment of GIB as doing, monitor H/H and transfuse for Hgb < 8 -HR control with b-hunter, as above -observe for sx's of cardiac ischemia -check echo -should have risk-stratification with pharm MPI once acute issues resolve MELVIN: -baseline creat 1.1 in 02/20 -initial creat 2.4, coming down with IVF -cont IV fluid aggressively, tx of active bleeding HTN: -hold home anti-hypertensive meds for now, given hemodynamically unstable with bleeding HPL, h/o carotid dz: -on atorva 20 at home--cont once cleared for PO by GI plan d/w'd ICU team approx time spent in data review, pt exam, and formulating plan of potentially life threatening complicatinos = 36 min
[2018-04-04] MEDS ORDERED: METOPROLOL TARTRATE 5 MG/5 ML VIAL IVPUSH PRN (11:44)
[2018-04-04] MEDS ORDERED: LACTATED RINGERS SOLUTION 1,000 ML/1,000 ML INFUS.BAG IV SCH (11:45)
[2018-04-04] MEDS ORDERED: METOPROLOL TARTRATE 5 MG/5 ML VIAL IVPUSH SCH (11:45)
--- NOTE | 2018-04-04 11:47 | PN ---
Teaching Attending Note Name of Resident: Noah Manrique ATTENDING PHYSICIAN STATEMENT I saw and evaluated the patient. I reviewed the resident's note and discussed the case with the resident. I agree with the resident's findings and plan as documented. SUBJECTIVE: Patient seen and examined in the ICU. Awake and alert. Denies CP or SOB. No abdominal pain. No occult bleeding noted. Intake & Output 04/01/18 04/02/18 04/03/18 04/04/18 23:59 23:59 23:59 23:59 Intake Total 2049 Balance 2049 Weight 200 lb 250 lb 12.8 oz Last Vital Signs Temp Pulse Resp BP Pulse Ox 97.8 F 103 H 21 H 115/85 99 04/04/18 02:23 04/04/18 08:00 04/04/18 08:21 04/04/18 08:00 04/04/18 08:21 Active Medications Chlorhexidine Gluconate (Hibiclens For Decolonization -) 1 applic TP HS [facility] Diltiazem HCl (Cardizem Cd -) 120 mg PO DAILY [facility] Last Admin: 04/04/18 09:34 Dose: 120 mg Piperacillin Sod/Tazobactam (Sod 2.25 gm/ Dextrose) 50 mls @ 100 mls/hr IVPB Q6H-IV SAKSHI; Protocol Stop: 04/04/18 15:29 Last Admin: 04/04/18 09:34 Dose: 100 mls/hr Piperacillin Sod/Tazobactam (Sod 2.25 gm/ Dextrose) 50 mls @ 100 mls/hr IVPB Q6H-IV SAKSHI Latanoprost (Xalatan 0.005% Eye Drops -) 1 drop OU HS [facility] Mupirocin (Bactroban Ointment (For Decolonization) -) 1 applic NS BID [facility] Stop: 04/09/18 09:59 Last Admin: 04/04/18 09:37 Dose: 1 applic Pantoprazole Sodium (Protonix Iv) 40 mg IVPUSH BID [facility] Last Admin: 04/04/18 09:34 Dose: 40 mg Constitutional: Yes: No Distress, Calm Eyes: Yes: Conjunctiva Clear, EOM Intact HENT: Yes: Atraumatic, Normocephalic Neck: Yes: Supple, Trachea Midline Cardiovascular: Yes: Regular Rate and Rhythm Respiratory: Yes: CTA Bilaterally Gastrointestinal: Yes: Normal Bowel Sounds, Soft, Rectal Bleeding. No: Tenderness ...Rectal Exam: Yes: Guaiac Positive Edema: No Peripheral Pulses WNL: Yes Neurological: Yes: Alert, Oriented, Weakness (L sided residual) Labs: Laboratory Results - last 24 hr 04/03/18 04/03/18 04/03/18 01:40 20:30 20:30 WBC 16.0 H RBC 2.94 L Hgb 8.9 L Hct 27.3 L D MCV 92.9 MCH 30.3 MCHC 32.6 RDW 15.1 Plt Count 349 D MPV 8.9 Absolute Neuts (auto) 14.7 H Neutrophils % 91.8 H Neutrophils % (Manual) 86.0 H Band Neutrophils % 4.0 Lymphocytes % 3.4 L D Lymphocytes % (Manual) 7.0 L Monocytes % 3.6 L Monocytes % (Manual) 3 L Eosinophils % 0.0 D Eosinophils % (Manual) 1.0 Basophils % 1.2 Nucleated RBC % 0 Hypochromia 2+ Platelet Estimate Adequate Platelet Comment Large platelets Anisocytosis 1+ Microcytosis 1+ Macrocytosis 1+ PT with INR 70.70 H INR 5.89 H* PTT (Actin FS) Sodium Potassium Chloride Carbon Dioxide Anion Gap BUN Creatinine Creat Clearance w eGFR Random Glucose Lactic Acid Calcium Phosphorus Magnesium Total Bilirubin AST ALT Alkaline Phosphatase Troponin I Total Protein Albumin Urine Color Ltyellow Urine Appearance Clear Urine pH 5.0 Ur Specific [place] 1.012 Urine Protein Negative Urine Glucose (UA) Negative Urine Ketones Negative Urine Blood Negative Urine Nitrite Negative Urine Bilirubin Negative Urine Urobilinogen Negative Ur Leukocyte Esterase 2+ H Urine WBC (Auto) 3 Urine RBC (Auto) <1 Ur Epithelial Cells Rare Hyaline Casts 58 Urine Mucus Rare Urine Creatinine Stool Occult Blood Blood Type Antibody Screen Crossmatch 04/03/18 04/03/18 04/03/18 20:30 20:30 20:30 WBC RBC Hgb Hct MCV MCH MCHC RDW Plt Count MPV Absolute Neuts (auto) Neutrophils % Neutrophils % (Manual) Band Neutrophils % Lymphocytes % Lymphocytes % (Manual) Monocytes % Monocytes % (Manual) Eosinophils % Eosinophils % (Manual) Basophils % Nucleated RBC % Hypochromia Platelet Estimate Platelet Comment Anisocytosis Microcytosis Macrocytosis PT with INR INR PTT (Actin FS) Sodium 138 Potassium 6.1 H* Chloride 107 Carbon Dioxide 21 Anion Gap 11 BUN 68 H Creatinine 2.5 H Creat Clearance w eGFR 24.61 Random Glucose 135 H Lactic Acid Calcium 8.7 Phosphorus Magnesium Total Bilirubin 0.3 AST 25 ALT 28 Alkaline Phosphatase 92 Troponin I Total Protein 6.8 Albumin 3.4 Urine Color Urine Appearance Urine pH Ur Specific [place] Urine Protein Urine Glucose (UA) Urine Ketones Urine Blood Urine Nitrite Urine Bilirubin Urine Urobilinogen Ur Leukocyte Esterase Urine WBC (Auto) Urine RBC (Auto) Ur Epithelial Cells Hyaline Casts Urine Mucus Urine Creatinine Stool Occult Blood Positive Blood Type O POSITIVE Antibody Screen Negative Crossmatch See Detail 04/03/18 04/03/18 04/03/18 20:30 21:45 21:45 WBC RBC Hgb Hct MCV MCH MCHC RDW Plt Count MPV Absolute Neuts (auto) Neutrophils % Neutrophils % (Manual) Band Neutrophils % Lymphocytes % Lymphocytes % (Manual) Monocytes % Monocytes % (Manual) Eosinophils % Eosinophils % (Manual) Basophils % Nucleated RBC % Hypochromia Platelet Estimate Platelet Comment Anisocytosis Microcytosis Macrocytosis PT with INR INR PTT (Actin FS) Sodium 138 Potassium 6.3 H* Chloride 106 Carbon Dioxide 22 Anion Gap 10 BUN 68 H Creatinine 2.4 H Creat Clearance w eGFR 25.80 Random Glucose 124 H Lactic Acid 2.7 H* Calcium 8.5 Phosphorus Magnesium Total Bilirubin AST ALT Alkaline Phosphatase Troponin I 0.06 H 0.07 H Total Protein Albumin Urine Color Urine Appearance Urine pH Ur Specific [place] Urine Protein Urine Glucose (UA) Urine Ketones Urine Blood Urine Nitrite Urine Bilirubin Urine Urobilinogen Ur Leukocyte Esterase Urine WBC (Auto) Urine RBC (Auto) Ur Epithelial Cells Hyaline Casts Urine Mucus Urine Creatinine Stool Occult Blood Blood Type Antibody Screen Crossmatch 04/04/18 04/04/18 04/04/18 01:40 01:40 06:00 WBC RBC Hgb Hct MCV MCH MCHC RDW Plt Count MPV Absolute Neuts (auto) Neutrophils % Neutrophils % (Manual) Band Neutrophils % Lymphocytes % Lymphocytes % (Manual) Monocytes % Monocytes % (Manual) Eosinophils % Eosinophils % (Manual) Basophils % Nucleated RBC % Hypochromia Platelet Estimate Platelet Comment Anisocytosis Microcytosis Macrocytosis PT with INR INR PTT (Actin FS) Sodium 141 Potassium 5.6 H Chloride 109 H Carbon Dioxide 22 Anion Gap 10 BUN 68 H Creatinine 2.5 H Creat Clearance w eGFR 24.61 Random Glucose 55 L Lactic Acid 4.8 H* Calcium 8.8 Phosphorus Magnesium Total Bilirubin AST ALT Alkaline Phosphatase Troponin I Total Protein Albumin Urine Color Urine Appearance Urine pH Ur Specific [place] Urine Protein Urine Glucose (UA) Urine Ketones Urine Blood Urine Nitrite Urine Bilirubin Urine Urobilinogen Ur Leukocyte Esterase Urine WBC (Auto) Urine RBC (Auto) Ur Epithelial Cells Hyaline Casts Urine Mucus Urine Creatinine 119.0 H Stool Occult Blood Blood Type Antibody Screen Crossmatch 04/04/18 04/04/18 04/04/18 08:00 08:00 08:00 WBC 11.1 H RBC 3.22 L Hgb 9.6 L Hct 29.1 L MCV 90.3 MCH 29.8 MCHC 33.0 RDW 15.1 Plt Count 269 D MPV 8.3 Absolute Neuts (auto) 9.5 H Neutrophils % 86.0 H Neutrophils % (Manual) Band Neutrophils % Lymphocytes % 6.0 L D Lymphocytes % (Manual) Monocytes % 7.5 D Monocytes % (Manual) Eosinophils % 0.0 Eosinophils % (Manual) Basophils % 0.5 Nucleated RBC % 0 Hypochromia Platelet Estimate Platelet Comment Anisocytosis Microcytosis Macrocytosis PT with INR 35.10 H INR 2.94 H PTT (Actin FS) 33.7 Sodium 139 Potassium 5.2 H Chloride 109 H Carbon Dioxide 21 Anion Gap 9 BUN 61 H Creatinine 2.2 H Creat Clearance w eGFR 28.52 Random Glucose 122 H Lactic Acid Calcium 8.6 Phosphorus 3.4 Magnesium 2.3 Total Bilirubin 0.8 AST 34 ALT 24 Alkaline Phosphatase 79 Troponin I Total Protein 5.9 L Albumin 2.9 L Urine Color Urine Appearance Urine pH Ur Specific [place] Urine Protein Urine Glucose (UA) Urine Ketones Urine Blood Urine Nitrite Urine Bilirubin Urine Urobilinogen Ur Leukocyte Esterase Urine WBC (Auto) Urine RBC (Auto) Ur Epithelial Cells Hyaline Casts Urine Mucus Urine Creatinine Stool Occult Blood Blood Type Antibody Screen Crossmatch 04/04/18 04/04/18 08:00 08:00 WBC RBC Hgb Hct MCV MCH MCHC RDW Plt Count MPV Absolute Neuts (auto) Neutrophils % Neutrophils % (Manual) Band Neutrophils % Lymphocytes % Lymphocytes % (Manual) Monocytes % Monocytes % (Manual) Eosinophils % Eosinophils % (Manual) Basophils % Nucleated RBC % Hypochromia Platelet Estimate Platelet Comment Anisocytosis Microcytosis Macrocytosis PT with INR INR PTT (Actin FS) Sodium Potassium Chloride Carbon Dioxide Anion Gap BUN Creatinine Creat Clearance w eGFR Random Glucose Lactic Acid 1.4 Calcium Phosphorus Magnesium Total Bilirubin AST ALT Alkaline Phosphatase Troponin I 1.11 H* Total Protein Albumin Urine Color Urine Appearance Urine pH Ur Specific [place] Urine Protein Urine Glucose (UA) Urine Ketones Urine Blood Urine Nitrite Urine Bilirubin Urine Urobilinogen Ur Leukocyte Esterase Urine WBC (Auto) Urine RBC (Auto) Ur Epithelial Cells Hyaline Casts Urine Mucus Urine Creatinine Stool Occult Blood Blood Type Antibody Screen Crossmatch Assessment/Plan Acute GI bleed in the setting of AC for previous CVA CVA w/ residual L sided weakness HTN HLD Hemorrhoids Leukocytosis: Source to be determined Lactic Acidosis Hyperkalemia Elevated troponin likely due to demand ischemia MELVIN Normal transfusion threshold (transfuse for Hgb < 8) O2 as needed Strict I & O IVF D/W Cardiology: Lopressor for rate control PPI PO as per GI Noted empiric ABX: low suspicion of infectious colitis Follow Creatinine Cardiac Telemetry monitoring Dr Gray Critical care time spent in reviewing chart, evaluating patient and formulating plan - 36 minutes.
--- NOTE | 2018-04-04 12:15 | EKG ---
Test Reason : Blood Pressure : / mmHG Vent. 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
--- NOTE | 2018-04-04 12:18 | EKG ---
Test Reason : Blood Pressure : / mmHG Vent. 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 RATE HAS INCREASED BY 47 BPM T WAVE VARIATION Confirmed by JESSICA CARD MD ([id number]) on 04/04/2018 12:17:50 PM Referred By: Confirmed By:JESSICA CARD MD
--- NOTE | 2018-04-04 12:25 | CON.GI ---
Consult Consult Specialty:: GI Referred by:: hospitalist - History of Present Illness Chief Complaint: rectal bleeding History of Present Illness: 87 y/o male PHx. of distant CVA (residual left sided weakness), chronic left carotid occlusion, HTN, HLD, and hemorrhoids presents with rectal bleeding. The rectal bleeding started 04/02/18 at around 9 am. He had several episodes which he attributed them from hemorrhoidal bleeding. The bleeding continued up to the time of the ER visit. Since admission there were no further rectal bleeding noted. He could not remember if he had a colonoscopy in . He denies any LOC, SOB and weakness. In the ER he was noted to be tachycardic despite being on Beta hunter. He was transfused 2 units of PRBC overnight and 2 units of FFP. He is asymptomatic. 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 Cardio/Vascular: Yes: HTN, Hyperlipdemia, Other (carotid stenosis) - Alcohol/Substance Use Hx Alcohol Use: No - Smoking History Smoking history: Former smoker Have you smoked in the past 12 months: No Home Medications - Allergies Allergies/Adverse Reactions: Allergies Allergy/AdvReac Type Severity Reaction Status Date / Time No Known Allergies Allergy Verified 04/03/18 20:16 - Home Medications Home Medications: Ambulatory Orders Atorvastatin Ca [Lipitor] 20 mg PO DAILY 04/03/18 Diltiazem [Cardizem -] 120 mg PO DAILY 04/03/18 Latanoprost/Pf [Latanoprost 0.005% Eye Drop] 1 drop OU HS 04/03/18 Sertraline HCl [Zoloft -] 50 mg PO DAILY 04/03/18 Spironolactone [Aldactone] 25 mg PO DAILY 04/03/18 Torsemide [Demadex -] 20 mg PO BID 04/03/18 Warfarin Sodium 4 mg PO HS 04/03/18 Family Disease History - Family Disease History Family Disease History: Heart Disease: Father, CA: Mother (gatric) Review of Systems - Review of Systems Constitutional: denies: No Symptoms, Chills, Diaphoresis, Fever, Lethargy, Loss of Appetite, Malaise, Night Sweats, Unintentional Wgt. Loss, Weakness, Other Eyes: denies: No Symptoms, Blind Spots, Blurred Vision, Double Vision, Eye Pain , Floaters, Photophobia, Recent Change in Vision, Other HENT: denies: No Symptoms, Difficult Swallowing, Ear Discharge, Ear Pain, Epistaxis, Gingival Bleeding, Hearing Loss, Mouth Swelling, Nasal Congestion, Ocular Prosthesis, Throat Pain, Toothache, Ringing in Ears, Other Neck: denies: No Symptoms, Decreased ROM, Lumps, Pain on Movement, Stiffness, Swollen Glands, Tenderness, Other Cardiovascular: denies: No Symptoms, Chest Pain, Edema, Palpitations, Shortness of Breath, Other Physical Exam-GI Vital Signs: Vital Signs Temperature 97.8 F 04/04/18 02:23 Pulse Rate 103 H 04/04/18 08:00 Respiratory Rate 21 H 04/04/18 08:21 Blood Pressure 115/85 04/04/18 08:00 O2 Sat by Pulse Oximetry (%) 99 04/04/18 08:21 Constitutional: Yes: No Distress Eyes: Yes: Conjunctiva Clear, Occular Prosthesis Neck: Yes: Supple Cardiovascular: Yes: Regular Rate and Rhythm. No: JVD Respiratory: Yes: Other (bibasilar crackles) Gastrointestinal Inspection: No: Ascites ...Palpate: Yes: Soft. No: Firm/Rigid, Guarding, Hepatomegaly, Mass, Pulsatile Mass, Splenomegaly, Tenderness, Tenderness, Epigastium, Tenderness, Rebound Labs: CBC, BMP 04/04/18 08:00 04/04/18 08:00 INR, PTT INR 2.94 (0.83-1.09) H 04/04/18 08:00 Hepatic Panel Total Bilirubin 0.8 mg/dL (0.2-1) 04/04/18 08:00 AST 34 U/L (15-37) 04/04/18 08:00 ALT 24 U/L (13-61) 04/04/18 08:00 Alkaline Phosphatase 79 U/L (45-117) 04/04/18 08:00 Albumin 2.9 g/dl (3.4-5.0) L 04/04/18 08:00 Home Medications Medication Instructions Recorded Atorvastatin Ca [Lipitor] 20 mg PO DAILY 04/03/18 Diltiazem [Cardizem -] 120 mg PO DAILY 04/03/18 Latanoprost/Pf [Latanoprost 0.005% 1 drop OU HS 04/03/18 Eye Drop] Sertraline HCl [Zoloft -] 50 mg PO DAILY 04/03/18 Spironolactone [Aldactone] 25 mg PO DAILY 04/03/18 Torsemide [Demadex -] 20 mg PO BID 04/03/18 Warfarin Sodium 4 mg PO HS 04/03/18 Assessment/Plan Lower GI bleeding patient has not been bleeding for more than 24 hours,WBC has improved. Most likely the patient had a diverticular bleeding that has resolved R> clear liquid diet for colonoscopy once medically cleared Dr Cervantes will follow the patient.
--- NOTE | 2018-04-04 12:36 | CONSULT ---
Consultation: REQUESTING PROVIDER: Dr. Brown CONSULT REQUEST: We have been asked to medically evaluate this patient for MELVIN vs ATN. HISTORY OF PRESENT ILLNESS: Nephrology consult Pt is an 87 y/o man with PMH HTN, HLD, chronic left carotid occlusion, prior CVA on warfarin who presented to ER with rectal bleed. Pt states he has had rectal bleeding before due to his chronic hemorrhoids, but this episode was worse. Was found to have elevated INR and GIB and was admitted to ICU. Court Interpreter found to be elevated. Neprhology called to evaluate for MELVIN vs ATN. Pt denies any PMH kidney problems. Denies burning, frequency, dark/bloody urine. No abdominal pain. REVIEW OF SYSTEMS: CONSTITUTIONAL: Absent: fever, chills, diaphoresis, generalized weakness, malaise, loss of appetite, weight change HEENT: Absent: rhinorrhea, nasal congestion, throat pain, throat swelling, difficulty swallowing, mouth swelling, ear pain, eye pain, visual changes CARDIOVASCULAR: Absent: chest pain, syncope, palpitations, irregular heart rate, lightheadedness , peripheral edema RESPIRATORY: Absent: cough, shortness of breath, dyspnea with exertion, orthopnea, wheezing, stridor, hemoptysis GASTROINTESTINAL:hematochezia Absent: abdominal pain, abdominal distension, nausea, vomiting, diarrhea, constipation, melena, GENITOURINARY: Absent: dysuria, frequency, urgency, hesitancy, hematuria, flank pain, genital pain MUSCULOSKELETAL: Absent: myalgia, arthralgia, joint swelling, back pain, neck pain SKIN: Absent: rash, itching, pallor HEMATOLOGIC/IMMUNOLOGIC: Absent: easy bleeding, easy bruising, lymphadenopathy, frequent infections ENDOCRINE: Absent: unexplained weight gain, unexplained weight loss, heat intolerance, cold intolerance NEUROLOGIC: Absent: headache, focal weakness or paresthesias, dizziness, unsteady gait, seizure, mental status changes, bladder or bowel incontinence PSYCHIATRIC: Absent: anxiety, depression, suicidal or homicidal ideation, hallucinations. PHYSICAL EXAMINATION Vital Signs - 24 hr 04/03/18 04/03/18 04/03/18 19:07 20:30 20:45 Temperature 97.9 F Pulse Rate 78 Pulse Rate [ Left] Respiratory 18 Rate Blood Pressure 86/59 L Blood Pressure 110/67 [Right Arm] O2 Sat by Pulse 90 L 95 Oximetry (%) 12/04/04/18 04/04/18 01:00 01:15 02:00 Temperature 98.9 F 98.5 F Pulse Rate Pulse Rate [ 96 H 102 H Left] Respiratory 20 20 18 Rate Blood Pressure Blood Pressure 86/47 L 118/76 [Right Arm] O2 Sat by Pulse 99 99 99 Oximetry (%) 04/04/18 04/04/18 04/04/18 02:21 02:23 03:00 Temperature 97.8 F Pulse Rate 103 H 116 H Pulse Rate [ Left] Respiratory 20 18 18 Rate Blood Pressure 90/46 L 77/45 L Blood Pressure [Right Arm] O2 Sat by Pulse 99 Oximetry (%) 04/04/18 04/04/18 04/04/18 03:30 05:00 08:00 Temperature Pulse Rate 112 H 101 H 103 H Pulse Rate [ Left] Respiratory 18 21 H 13 Rate Blood Pressure 105/58 L 94/71 115/85 Blood Pressure [Right Arm] O2 Sat by Pulse Oximetry (%) 04/04/18 08:21 Temperature Pulse Rate Pulse Rate [ Left] Respiratory 21 H Rate Blood Pressure Blood Pressure [Right Arm] O2 Sat by Pulse 99 Oximetry (%) Gen: NAD, AAO x 3 HEENT: NCAT, EOMI Neck: supple, no jvd noted Cardio: extrasystoles, s1s2 normal, no murmurs/rubs/gallops Pulm: cta b/l, no rales/ronchi appreciated Abd: nondistended, normal bs, soft, nontender, no organomegally appreciated Ext: no edema, 1+ pulses Laboratory Results - last 24 hr 04/03/18 04/03/18 04/03/18 01:40 20:30 20:30 WBC 16.0 H RBC 2.94 L Hgb 8.9 L Hct 27.3 L D MCV 92.9 MCH 30.3 MCHC 32.6 RDW 15.1 Plt Count 349 D MPV 8.9 Absolute Neuts (auto) 14.7 H Neutrophils % 91.8 H Neutrophils % (Manual) 86.0 H Band Neutrophils % 4.0 Lymphocytes % 3.4 L D Lymphocytes % (Manual) 7.0 L Monocytes % 3.6 L Monocytes % (Manual) 3 L Eosinophils % 0.0 D Eosinophils % (Manual) 1.0 Basophils % 1.2 Nucleated RBC % 0 Hypochromia 2+ Platelet Estimate Adequate Platelet Comment Large platelets Anisocytosis 1+ Microcytosis 1+ Macrocytosis 1+ PT with INR 70.70 H INR 5.89 H* PTT (Actin FS) Sodium Potassium Chloride Carbon Dioxide Anion Gap BUN Creatinine Creat Clearance w eGFR Random Glucose Lactic Acid Calcium Phosphorus Magnesium Total Bilirubin AST ALT Alkaline Phosphatase Troponin I Total Protein Albumin Urine Color Ltyellow Urine Appearance Clear Urine pH 5.0 Ur Specific Arp 1.012 Urine Protein Negative Urine Glucose (UA) Negative Urine Ketones Negative Urine Blood Negative Urine Nitrite Negative Urine Bilirubin Negative Urine Urobilinogen Negative Ur Leukocyte Esterase 2+ H Urine WBC (Auto) 3 Urine RBC (Auto) <1 Ur Epithelial Cells Rare Hyaline Casts 58 Urine Mucus Rare Urine Creatinine Stool Occult Blood Blood Type Antibody Screen Crossmatch 04/03/18 04/03/18 04/03/18 20:30 20:30 20:30 WBC RBC Hgb Hct MCV MCH MCHC RDW Plt Count MPV Absolute Neuts (auto) Neutrophils % Neutrophils % (Manual) Band Neutrophils % Lymphocytes % Lymphocytes % (Manual) Monocytes % Monocytes % (Manual) Eosinophils % Eosinophils % (Manual) Basophils % Nucleated RBC % Hypochromia Platelet Estimate Platelet Comment Anisocytosis Microcytosis Macrocytosis PT with INR INR PTT (Actin FS) Sodium 138 Potassium 6.1 H* Chloride 107 Carbon Dioxide 21 Anion Gap 11 BUN 68 H Creatinine 2.5 H Creat Clearance w eGFR 24.61 Random Glucose 135 H Lactic Acid Calcium 8.7 Phosphorus Magnesium Total Bilirubin 0.3 AST 25 ALT 28 Alkaline Phosphatase 92 Troponin I Total Protein 6.8 Albumin 3.4 Urine Color Urine Appearance Urine pH Ur Specific Arp Urine Protein Urine Glucose (UA) Urine Ketones Urine Blood Urine Nitrite Urine Bilirubin Urine Urobilinogen Ur Leukocyte Esterase Urine WBC (Auto) Urine RBC (Auto) Ur Epithelial Cells Hyaline Casts Urine Mucus Urine Creatinine Stool Occult Blood Positive Blood Type O POSITIVE Antibody Screen Negative Crossmatch See Detail 04/03/18 04/03/18 04/03/18 20:30 21:45 21:45 WBC RBC Hgb Hct MCV MCH MCHC RDW Plt Count MPV Absolute Neuts (auto) Neutrophils % Neutrophils % (Manual) Band Neutrophils % Lymphocytes % Lymphocytes % (Manual) Monocytes % Monocytes % (Manual) Eosinophils % Eosinophils % (Manual) Basophils % Nucleated RBC % Hypochromia Platelet Estimate Platelet Comment Anisocytosis Microcytosis Macrocytosis PT with INR INR PTT (Actin FS) Sodium 138 Potassium 6.3 H* Chloride 106 Carbon Dioxide 22 Anion Gap 10 BUN 68 H Creatinine 2.4 H Creat Clearance w eGFR 25.80 Random Glucose 124 H Lactic Acid 2.7 H* Calcium 8.5 Phosphorus Magnesium Total Bilirubin AST ALT Alkaline Phosphatase Troponin I 0.06 H 0.07 H Total Protein Albumin Urine Color Urine Appearance Urine pH Ur Specific Arp Urine Protein Urine Glucose (UA) Urine Ketones Urine Blood Urine Nitrite Urine Bilirubin Urine Urobilinogen Ur Leukocyte Esterase Urine WBC (Auto) Urine RBC (Auto) Ur Epithelial Cells Hyaline Casts Urine Mucus Urine Creatinine Stool Occult Blood Blood Type Antibody Screen Crossmatch 04/04/18 04/04/18 04/04/18 01:40 01:40 06:00 WBC RBC Hgb Hct MCV MCH MCHC RDW Plt Count MPV Absolute Neuts (auto) Neutrophils % Neutrophils % (Manual) Band Neutrophils % Lymphocytes % Lymphocytes % (Manual) Monocytes % Monocytes % (Manual) Eosinophils % Eosinophils % (Manual) Basophils % Nucleated RBC % Hypochromia Platelet Estimate Platelet Comment Anisocytosis Microcytosis Macrocytosis PT with INR INR PTT (Actin FS) Sodium 141 Potassium 5.6 H Chloride 109 H Carbon Dioxide 22 Anion Gap 10 BUN 68 H Creatinine 2.5 H Creat Clearance w eGFR 24.61 Random Glucose 55 L Lactic Acid 4.8 H* Calcium 8.8 Phosphorus Magnesium Total Bilirubin AST ALT Alkaline Phosphatase Troponin I Total Protein Albumin Urine Color Urine Appearance Urine pH Ur Specific Arp Urine Protein Urine Glucose (UA) Urine Ketones Urine Blood Urine Nitrite Urine Bilirubin Urine Urobilinogen Ur Leukocyte Esterase Urine WBC (Auto) Urine RBC (Auto) Ur Epithelial Cells Hyaline Casts Urine Mucus Urine Creatinine 119.0 H Stool Occult Blood Blood Type Antibody Screen Crossmatch 04/04/18 04/04/18 04/04/18 08:00 08:00 08:00 WBC 11.1 H RBC 3.22 L Hgb 9.6 L Hct 29.1 L MCV 90.3 MCH 29.8 MCHC 33.0 RDW 15.1 Plt Count 269 D MPV 8.3 Absolute Neuts (auto) 9.5 H Neutrophils % 86.0 H Neutrophils % (Manual) Band Neutrophils % Lymphocytes % 6.0 L D Lymphocytes % (Manual) Monocytes % 7.5 D Monocytes % (Manual) Eosinophils % 0.0 Eosinophils % (Manual) Basophils % 0.5 Nucleated RBC % 0 Hypochromia Platelet Estimate Platelet Comment Anisocytosis Microcytosis Macrocytosis PT with INR 35.10 H INR 2.94 H PTT (Actin FS) 33.7 Sodium 139 Potassium 5.2 H Chloride 109 H Carbon Dioxide 21 Anion Gap 9 BUN 61 H Creatinine 2.2 H Creat Clearance w eGFR 28.52 Random Glucose 122 H Lactic Acid Calcium 8.6 Phosphorus 3.4 Magnesium 2.3 Total Bilirubin 0.8 AST 34 ALT 24 Alkaline Phosphatase 79 Troponin I Total Protein 5.9 L Albumin 2.9 L Urine Color Urine Appearance Urine pH Ur Specific Arp Urine Protein Urine Glucose (UA) Urine Ketones Urine Blood Urine Nitrite Urine Bilirubin Urine Urobilinogen Ur Leukocyte Esterase Urine WBC (Auto) Urine RBC (Auto) Ur Epithelial Cells Hyaline Casts Urine Mucus Urine Creatinine Stool Occult Blood Blood Type Antibody Screen Crossmatch 04/04/18 04/04/18 08:00 08:00 WBC RBC Hgb Hct MCV MCH MCHC RDW Plt Count MPV Absolute Neuts (auto) Neutrophils % Neutrophils % (Manual) Band Neutrophils % Lymphocytes % Lymphocytes % (Manual) Monocytes % Monocytes % (Manual) Eosinophils % Eosinophils % (Manual) Basophils % Nucleated RBC % Hypochromia Platelet Estimate Platelet Comment Anisocytosis Microcytosis Macrocytosis PT with INR INR PTT (Actin FS) Sodium Potassium Chloride Carbon Dioxide Anion Gap BUN Creatinine Creat Clearance w eGFR Random Glucose Lactic Acid 1.4 Calcium Phosphorus Magnesium Total Bilirubin AST ALT Alkaline Phosphatase Troponin I 1.11 H* Total Protein Albumin Urine Color Urine Appearance Urine pH Ur Specific Arp Urine Protein Urine Glucose (UA) Urine Ketones Urine Blood Urine Nitrite Urine Bilirubin Urine Urobilinogen Ur Leukocyte Esterase Urine WBC (Auto) Urine RBC (Auto) Ur Epithelial Cells Hyaline Casts Urine Mucus Urine Creatinine Stool Occult Blood Blood Type Antibody Screen Crossmatch Active Medications Generic Name Dose Route Start Last Admin Trade Name Freq PRN Reason Stop Dose Admin Chlorhexidine Gluconate 1 applic 04/04/18 22:00 Hibiclens For Decolonization - TP HS SAKSHI Piperacillin Sod/Tazobactam 50 mls @ 100 mls/hr 04/04/18 03:30 04/04/18 09:34 Sod 2.25 gm/ Dextrose IVPB 04/04/18 15:29 100 mls/hr Q6H-IV SAKSHI Administration Protocol Piperacillin Sod/Tazobactam 50 mls @ 100 mls/hr 04/04/18 21:00 Sod 2.25 gm/ Dextrose IVPB Q6H-IV SAKSHI Lactated Ringer's 1,000 ml in 1,000 mls @ 50 mls/hr 04/04/18 11:45 Lactated Ringers Solution IV ASDIR SAKSHI Latanoprost 1 drop 04/04/18 22:00 Xalatan 0.005% Eye Drops - OU HS SAKSHI Metoprolol Tartrate 5 mg 04/04/18 11:45 Lopressor Injection - IVPUSH Q8H SAKSHI Metoprolol Tartrate 5 mg 04/04/18 11:44 Lopressor Injection - IVPUSH Q1H PRN TACHYCARDIA Mupirocin 1 applic 04/04/18 10:00 04/04/18 09:37 Bactroban Ointment (For Decolonization) - NS 04/09/18 09:59 1 applic BID SAKSHI Administration Pantoprazole Sodium 40 mg 04/04/18 10:00 04/04/18 09:34 Protonix Iv IVPUSH 40 mg BID SAKSHI Administration ASSESSMENT/PLAN: Pt is an 87 y/o M with pmh sig for HTN, HLD, L carotid occlusion, prior CVA, hemorrhoids who presented to ED with GIB. Found to have elevated Court Interpreter. Nephrology consulted to evaluate for MELVIN vs ATN. #MELVIN -elevated clinical implementation specialist in setting of hypotensive episode -per cardio note, baseline Court Interpreter 1.1 in 02/20. Pt denies kidney disease. Denies symptoms - No hist dark urine. BUN:Court Interpreter > 20. UA sig for hyaline casts. Urine/plasma Court Interpreter ratio > 40. All suggestive of prerenal rather than ATN -Renal U/S pending -Abd CT pending -continue IV hydration with LR -follow Court Interpreter -will order urine lytes #GIB w/ hypotension -bleeding stable at this time -continue to monitor -C/w protonix -GI consulted. f/u recs -Hb improving. normal transfusion threshold #Rapid AF -hold Cardizem per cardio -hold Warfarin for GIB #HLD -c/w home Lipitor #HTN -holding lopressor in setting of Hypotension #Prior CVA -hold Coumadin in setting of GIB Dispo: We will continue to follow the patient. Thank you for this consultative opportunity. Braulio Real MD PGY-2 IM: Nephrology Visit type - Emergency Visit Emergency Visit: No - New Patient This patient is new to me today: Yes Date on this admission: 04/04/18 - Critical Care Critical Care patient: Yes Total Critical Care Time (in minutes): 40 Critical Care Statement: The care of this patient involved high complexity decision making to prevent further life threatening deterioration of the patient 's condition and/or to evaluate & treat vital organ system(s) failure or risk of failure.
[2018-04-04 14:37] LABS: HEMATOCRIT 29.5 % (35.4-49); HEMOGLOBIN 9.6 GM/dL (11.7-16.9); MCH 29.9 pg (25.7-33.7); MCHC 32.7 g/dl (32.0-35.9); MEAN CELL VOLUME 91.4 fl (80-96); MEAN PLT VOLUME 8.7 fl (7.5-11.1); PLATELET COUNT 273 K/MM3 (134-434); RBC 3.22 M/mm3 (4.00-5.60); RDW 15.6 % (11.9-15.9); WHITE BLOOD COUNT 11.7 K/mm3 (4.0-10.0)
--- NOTE | 2018-04-04 15:17 | PN ---
Teaching Attending Note Name of Resident: Alejandra Salter ATTENDING PHYSICIAN STATEMENT I saw and evaluated the patient. I reviewed the resident's note and discussed the case with the resident. I agree with the resident's findings and plan as documented. SUBJECTIVE: Mr Upton says he is doing much better today. Denies cp, sob, n/ v. Says bleeding has stopped, currently not having bowel movements OBJECTIVE: Last Vital Signs Temp Pulse Resp BP Pulse Ox 36.6 C 86 13 94/58 L 99 04/04/18 02:23 04/04/18 16:00 04/04/18 16:00 04/04/18 16:00 04/04/18 08:21 Gen: nad Pulm: ctab w/o w/r/r CV: rrr w/o m/r/g Abd: +bs, s/nt/nd Ext: no c/c/e CBC, BMP 04/04/18 14:00 04/04/18 08:00 ASSESSMENT AND PLAN: Problem List - Problems (1) GIB (gastrointestinal bleeding) Assessment/Plan: -lower GIB -possible diverticular bleed considering amount -however with lactic acidosis, hyerpkalemia, renal failure, and sepsis must consider ischemic colitis -GI following -continue IV protonix -clear liquid diet -colonoscopy when medically stable Code(s): K92.2 - GASTROINTESTINAL HEMORRHAGE, UNSPECIFIED Qualifiers: GI bleed type/associated pathology: anorectal hemorrhage Qualified Code(s) : K62.5 - Hemorrhage of anus and rectum (2) Sepsis Assessment/Plan: -suspect GI source -continue zosyn -ID consulted Code(s): A41.9 - SEPSIS, UNSPECIFIED ORGANISM (3) Lactic acid acidosis Assessment/Plan: -hydration and antibiotics Code(s): E87.2 - ACIDOSIS (4) Warfarin toxicity Assessment/Plan: -s/p vitamin k -hold coumadin Code(s): T45.511A - POISONING BY ANTICOAGULANTS, ACCIDENTAL, INIT (5) NSTEMI (non-ST elevated myocardial infarction) Assessment/Plan: -troponin continues to elevate -cardiology following -cannot anticoagulate secondary to GI bleed -IV metoprolol Code(s): I21.4 - NON-ST ELEVATION (NSTEMI) MYOCARDIAL INFARCTION (6) Acute kidney insufficiency Assessment/Plan: -case d/w Dr Smith -s/p transfusion -IVF Code(s): N28.9 - DISORDER OF KIDNEY AND URETER, UNSPECIFIED (7) Anemia Assessment/Plan: -improved with transfusion Code(s): D64.9 - ANEMIA, UNSPECIFIED
--- NOTE | 2018-04-04 15:39 | ECHO ---
Name: ESMER LAZARO Exam:Adult Echocardiogram Study Date: 04/04/2018 03:02 PM Age: 87 yrs Reason For Study: NSTEMI AFIB Height: 66 in Weight: 250 lb BSA: 2.2 m2 BP: 89/59 mmHg MMode/2D Measurements & Calculations IVSd: 0.90 cm Ao root diam: 2.4 cm LVIDd: 4.5 cm LA dimension: 4.7 cm LVIDs: 3.4 cm LVPWd: 0.91 cm EDV(Teich): 90.4 ml LVOT diam: 2.2 cm ESV(Teich): 47.6 ml TAPSE: 1.6 cm Doppler Measurements & Calculations MV E max alexander: 88.4 cm/sec Ao V2 max: 148.6 cm/sec MV A max alexander: 23.2 cm/sec Ao max P.8 mmHg MV E/A: 3.8 MV dec time: 0.27 sec NICHOLAS(V,D): 1.7 cm2 LV V1 max P.9 mmHg TR max alexander: 309.2 cm/sec LV V1 max: 68.9 cm/sec TR max P.4 mmHg Med Peak E' Alexander: 7.1 cm/sec Med E/e': 12.4 Lat Peak E' Alexander: 7.9 cm/sec Lat E/e': 11.2 Procedure A complete two-dimensional transthoracic echocardiogram was performed (2D, M-mode, Doppler and color flow Doppler). Technically limited study. Left Ventricle The left ventricle is normal in size. Left ventricular systolic function is mildly reduced. Ejection Fraction = 45-50%. Regional wall motion abnormality could not be accurately assessed due to poor acoustic wind ow. Inferolateral wall appears mildly hypokinetic. Right Ventricle The right ventricle is normal size. RV systolic TDI is 9 cm/s suggests low normal RV systolic functio n. Atria The left atrial size is normal. Right atrial size is normal. Mitral Valve There is mild mitral annular calcification. There is no mitral regurgitation noted. Tricuspid Valve The tricuspid valve is normal in structure and function. There is mild tricuspid regurgitation. Pulmo nary artery systolic pressure is at least 49 mmHg if RA pressure is assumed 3 mmHg. Aortic Valve There is mild aortic sclerosis.;. No aortic regurgitation is present. Pulmonic Valve The pulmonic valve is not well visualized. Great Vessels The aortic root is normal size. Pericardium/Pleura There is no pericardial effusion. Interpretation Summary Technically limited study The left ventricle is normal in size. Left ventricular systolic function is mildly reduced. Regional wall motion abnormality could not be accurately assessed due to poor acoustic window. Infero lateral wall appears mildly hypokinetic Ejection Fraction = 45-50%. RV systolic TDI is 9 cm/s suggests low normal RV systolic function The left atrial size is normal. Right atrial size is normal. There is mild mitral annular calcification. There is mild tricuspid regurgitation. Pulmonary artery systolic pressure is at least 49 mmHg if RA pressure is assumed 3 mmHg There is mild aortic sclerosis. There is no pericardial effusion. Previous study is not available for comparison Hunter Durbin MD 04/04/2018 03:39 PM
--- NOTE | 2018-04-04 16:45 | PN ---
Teaching Attending Note Name of Resident: Braulio Real (Nephrology) ATTENDING PHYSICIAN STATEMENT I saw and evaluated the patient. I reviewed the resident's note and discussed the case with the resident. I agree with the resident's findings and plan as documented. Nephrology Follow Up Pt is an 87 year old male with pmhx of CVA, HTN and HLD who presented with GI bleed. I was called to evaluate him for renal failure. Pt was also hypotensive. He is awake and alert. pmhx hemorrhoids, cva, htn hld left carotid occlusion nkda social hx denies ros negative family hx denies Current Medications Generic Name Dose Route Start Last Admin Trade Name Freq PRN Reason Stop Dose Admin Chlorhexidine Gluconate 1 applic 04/04/18 22:00 Hibiclens For Decolonization - TP HS SAKSHI Piperacillin Sod/Tazobactam 50 mls @ 100 mls/hr 04/04/18 21:00 Sod 2.25 gm/ Dextrose IVPB Q6H-IV SAKSHI Lactated Ringer's 1,000 ml in 1,000 mls @ 50 mls/hr 04/04/18 11:45 04/04/18 12:26 Lactated Ringers Solution IV 50 mls/hr ASDIR SAKSHI Administration Latanoprost 1 drop 04/04/18 22:00 Xalatan 0.005% Eye Drops - OU HS SAKSHI Metoprolol Tartrate 5 mg 04/04/18 11:45 04/04/18 12:19 Lopressor Injection - IVPUSH Not Given Q8H SAKSHI Metoprolol Tartrate 5 mg 04/04/18 11:44 Lopressor Injection - IVPUSH Q1H PRN TACHYCARDIA Mupirocin 1 applic 04/04/18 10:00 04/04/18 09:37 Bactroban Ointment (For Decolonization) - NS 04/09/18 09:59 1 applic BID SAKSHI Administration Pantoprazole Sodium 40 mg 04/04/18 10:00 04/04/18 09:34 Protonix Iv IVPUSH 40 mg BID SAKSHI Administration Last Vital Signs Temp Pulse Resp BP Pulse Ox 97.8 F 86 13 94/58 L 99 04/04/18 02:23 04/04/18 16:00 04/04/18 16:00 04/04/18 16:00 04/04/18 08:21 Laboratory Tests 02/24/14 04/03/18 04/03/18 06:00 01:40 20:30 Creatinine 0.8 2.5 H Urine Protein Negative Urine Blood Negative 04/03/18 04/04/18 04/04/18 21:45 01:40 08:00 Creatinine 2.4 H 2.5 H 2.2 H Urine Protein Urine Blood cardio s1s2 tachy pulm clear GI soft ext neg edema neuro awake Impression 1. KCAI 2. anemia 3. gi bleed 4. hypotension 5. HLD 6. hx cva 7. lactic acidosis 8. hyperkalemia Plan - renal function is improving - monitor hg - change fluids from LR to NS as pt is hyperkalemic - renal ultrasound reviewed - monitor bp and avoid hypotension - kaci likely from atn secondary to prolonges prerenal disease from blood loss - ua neg for blood or protein Dr Smith
--- NOTE | 2018-04-04 16:48 | PN ---
Physical Exam: SUBJECTIVE: Patient seen and examined at bed side this morning. States he still has SOB. Denies chest pain, palpitations, abdominal pain, nausea or vomiting. Overnight received 2 PRBC and 1 FFP. OBJECTIVE: Vital Signs Period Temp Pulse Resp BP Sys/Daniel Pulse Ox Last 24 Hr 97.8 F-98.9 F 78-116 13-21 77-118/45-85 90-99 GENERAL: Elderly male, sitting in bed comfortably, is awake, alert, and fully oriented, in no acute distress. HEAD: Normal with no signs of trauma. EYES: EOM intact, pallor +, no icterus. ENT: Ears normal, dry mucous membranes. NECK: Supple. LUNGS: Breath sounds equal, Crackles on the Left lung base, right lung clear. HEART: Regular rate and rhythm, S1, S2 without murmur. ABDOMEN: Soft, nontender, no organomegaly, BS +. EXTREMITIES: 2+ pulses, warm, well-perfused, no edema. NEUROLOGICAL: No facial droop, Normal speech, gait not observed. PSYCH: Normal mood, normal affect. SKIN: Warm, dry, normal turgor, no rashes or lesions noted Laboratory Results - last 24 hr 04/03/18 04/03/18 04/03/18 01:40 20:30 20:30 WBC 16.0 H RBC 2.94 L Hgb 8.9 L Hct 27.3 L D MCV 92.9 MCH 30.3 MCHC 32.6 RDW 15.1 Plt Count 349 D MPV 8.9 Absolute Neuts (auto) 14.7 H Neutrophils % 91.8 H Neutrophils % (Manual) 86.0 H Band Neutrophils % 4.0 Lymphocytes % 3.4 L D Lymphocytes % (Manual) 7.0 L Monocytes % 3.6 L Monocytes % (Manual) 3 L Eosinophils % 0.0 D Eosinophils % (Manual) 1.0 Basophils % 1.2 Nucleated RBC % 0 Hypochromia 2+ Platelet Estimate Adequate Platelet Comment Large platelets Anisocytosis 1+ Microcytosis 1+ Macrocytosis 1+ PT with INR 70.70 H INR 5.89 H* PTT (Actin FS) Sodium Potassium Chloride Carbon Dioxide Anion Gap BUN Creatinine Creat Clearance w eGFR Random Glucose Lactic Acid Calcium Phosphorus Magnesium Total Bilirubin AST ALT Alkaline Phosphatase Troponin I Total Protein Albumin Urine Color Ltyellow Urine Appearance Clear Urine pH 5.0 Ur Specific [place] 1.012 Urine Protein Negative Urine Glucose (UA) Negative Urine Ketones Negative Urine Blood Negative Urine Nitrite Negative Urine Bilirubin Negative Urine Urobilinogen Negative Ur Leukocyte Esterase 2+ H Urine WBC (Auto) 3 Urine RBC (Auto) <1 Ur Epithelial Cells Rare Hyaline Casts 58 Urine Mucus Rare Urine Creatinine Stool Occult Blood Blood Type Antibody Screen Crossmatch 04/03/18 04/03/18 04/03/18 20:30 20:30 20:30 WBC RBC Hgb Hct MCV MCH MCHC RDW Plt Count MPV Absolute Neuts (auto) Neutrophils % Neutrophils % (Manual) Band Neutrophils % Lymphocytes % Lymphocytes % (Manual) Monocytes % Monocytes % (Manual) Eosinophils % Eosinophils % (Manual) Basophils % Nucleated RBC % Hypochromia Platelet Estimate Platelet Comment Anisocytosis Microcytosis Macrocytosis PT with INR INR PTT (Actin FS) Sodium 138 Potassium 6.1 H* Chloride 107 Carbon Dioxide 21 Anion Gap 11 BUN 68 H Creatinine 2.5 H Creat Clearance w eGFR 24.61 Random Glucose 135 H Lactic Acid Calcium 8.7 Phosphorus Magnesium Total Bilirubin 0.3 AST 25 ALT 28 Alkaline Phosphatase 92 Troponin I Total Protein 6.8 Albumin 3.4 Urine Color Urine Appearance Urine pH Ur Specific [place] Urine Protein Urine Glucose (UA) Urine Ketones Urine Blood Urine Nitrite Urine Bilirubin Urine Urobilinogen Ur Leukocyte Esterase Urine WBC (Auto) Urine RBC (Auto) Ur Epithelial Cells Hyaline Casts Urine Mucus Urine Creatinine Stool Occult Blood Positive Blood Type O POSITIVE Antibody Screen Negative Crossmatch See Detail 04/03/18 04/03/18 04/03/18 20:30 21:45 21:45 WBC RBC Hgb Hct MCV MCH MCHC RDW Plt Count MPV Absolute Neuts (auto) Neutrophils % Neutrophils % (Manual) Band Neutrophils % Lymphocytes % Lymphocytes % (Manual) Monocytes % Monocytes % (Manual) Eosinophils % Eosinophils % (Manual) Basophils % Nucleated RBC % Hypochromia Platelet Estimate Platelet Comment Anisocytosis Microcytosis Macrocytosis PT with INR INR PTT (Actin FS) Sodium 138 Potassium 6.3 H* Chloride 106 Carbon Dioxide 22 Anion Gap 10 BUN 68 H Creatinine 2.4 H Creat Clearance w eGFR 25.80 Random Glucose 124 H Lactic Acid 2.7 H* Calcium 8.5 Phosphorus Magnesium Total Bilirubin AST ALT Alkaline Phosphatase Troponin I 0.06 H 0.07 H Total Protein Albumin Urine Color Urine Appearance Urine pH Ur Specific [place] Urine Protein Urine Glucose (UA) Urine Ketones Urine Blood Urine Nitrite Urine Bilirubin Urine Urobilinogen Ur Leukocyte Esterase Urine WBC (Auto) Urine RBC (Auto) Ur Epithelial Cells Hyaline Casts Urine Mucus Urine Creatinine Stool Occult Blood Blood Type Antibody Screen Crossmatch 04/04/18 04/04/18 04/04/18 01:40 01:40 06:00 WBC RBC Hgb Hct MCV MCH MCHC RDW Plt Count MPV Absolute Neuts (auto) Neutrophils % Neutrophils % (Manual) Band Neutrophils % Lymphocytes % Lymphocytes % (Manual) Monocytes % Monocytes % (Manual) Eosinophils % Eosinophils % (Manual) Basophils % Nucleated RBC % Hypochromia Platelet Estimate Platelet Comment Anisocytosis Microcytosis Macrocytosis PT with INR INR PTT (Actin FS) Sodium 141 Potassium 5.6 H Chloride 109 H Carbon Dioxide 22 Anion Gap 10 BUN 68 H Creatinine 2.5 H Creat Clearance w eGFR 24.61 Random Glucose 55 L Lactic Acid 4.8 H* Calcium 8.8 Phosphorus Magnesium Total Bilirubin AST ALT Alkaline Phosphatase Troponin I Total Protein Albumin Urine Color Urine Appearance Urine pH Ur Specific [place] Urine Protein Urine Glucose (UA) Urine Ketones Urine Blood Urine Nitrite Urine Bilirubin Urine Urobilinogen Ur Leukocyte Esterase Urine WBC (Auto) Urine RBC (Auto) Ur Epithelial Cells Hyaline Casts Urine Mucus Urine Creatinine 119.0 H Stool Occult Blood Blood Type Antibody Screen Crossmatch 04/04/18 04/04/18 04/04/18 08:00 08:00 08:00 WBC 11.1 H RBC 3.22 L Hgb 9.6 L Hct 29.1 L MCV 90.3 MCH 29.8 MCHC 33.0 RDW 15.1 Plt Count 269 D MPV 8.3 Absolute Neuts (auto) 9.5 H Neutrophils % 86.0 H Neutrophils % (Manual) Band Neutrophils % Lymphocytes % 6.0 L D Lymphocytes % (Manual) Monocytes % 7.5 D Monocytes % (Manual) Eosinophils % 0.0 Eosinophils % (Manual) Basophils % 0.5 Nucleated RBC % 0 Hypochromia Platelet Estimate Platelet Comment Anisocytosis Microcytosis Macrocytosis PT with INR 35.10 H INR 2.94 H PTT (Actin FS) 33.7 Sodium 139 Potassium 5.2 H Chloride 109 H Carbon Dioxide 21 Anion Gap 9 BUN 61 H Creatinine 2.2 H Creat Clearance w eGFR 28.52 Random Glucose 122 H Lactic Acid Calcium 8.6 Phosphorus 3.4 Magnesium 2.3 Total Bilirubin 0.8 AST 34 ALT 24 Alkaline Phosphatase 79 Troponin I Total Protein 5.9 L Albumin 2.9 L Urine Color Urine Appearance Urine pH Ur Specific [place] Urine Protein Urine Glucose (UA) Urine Ketones Urine Blood Urine Nitrite Urine Bilirubin Urine Urobilinogen Ur Leukocyte Esterase Urine WBC (Auto) Urine RBC (Auto) Ur Epithelial Cells Hyaline Casts Urine Mucus Urine Creatinine Stool Occult Blood Blood Type Antibody Screen Crossmatch 04/04/18 04/04/18 04/04/18 08:00 08:00 12:50 WBC RBC Hgb Hct MCV MCH MCHC RDW Plt Count MPV Absolute Neuts (auto) Neutrophils % Neutrophils % (Manual) Band Neutrophils % Lymphocytes % Lymphocytes % (Manual) Monocytes % Monocytes % (Manual) Eosinophils % Eosinophils % (Manual) Basophils % Nucleated RBC % Hypochromia Platelet Estimate Platelet Comment Anisocytosis Microcytosis Macrocytosis PT with INR INR PTT (Actin FS) Sodium Potassium Chloride Carbon Dioxide Anion Gap BUN Creatinine Creat Clearance w eGFR Random Glucose Lactic Acid 1.4 Calcium Phosphorus Magnesium Total Bilirubin AST ALT Alkaline Phosphatase Troponin I 1.11 H* 3.88 H* Total Protein Albumin Urine Color Urine Appearance Urine pH Ur Specific [place] Urine Protein Urine Glucose (UA) Urine Ketones Urine Blood Urine Nitrite Urine Bilirubin Urine Urobilinogen Ur Leukocyte Esterase Urine WBC (Auto) Urine RBC (Auto) Ur Epithelial Cells Hyaline Casts Urine Mucus Urine Creatinine Stool Occult Blood Blood Type Antibody Screen Crossmatch 04/04/18 14:00 WBC 11.7 H RBC 3.22 L Hgb 9.6 L Hct 29.5 L MCV 91.4 MCH 29.9 MCHC 32.7 RDW 15.6 Plt Count 273 MPV 8.7 Absolute Neuts (auto) Neutrophils % Neutrophils % (Manual) Band Neutrophils % Lymphocytes % Lymphocytes % (Manual) Monocytes % Monocytes % (Manual) Eosinophils % Eosinophils % (Manual) Basophils % Nucleated RBC % Hypochromia Platelet Estimate Platelet Comment Anisocytosis Microcytosis Macrocytosis PT with INR INR PTT (Actin FS) Sodium Potassium Chloride Carbon Dioxide Anion Gap BUN Creatinine Creat Clearance w eGFR Random Glucose Lactic Acid Calcium Phosphorus Magnesium Total Bilirubin AST ALT Alkaline Phosphatase Troponin I Total Protein Albumin Urine Color Urine Appearance Urine pH Ur Specific [place] Urine Protein Urine Glucose (UA) Urine Ketones Urine Blood Urine Nitrite Urine Bilirubin Urine Urobilinogen Ur Leukocyte Esterase Urine WBC (Auto) Urine RBC (Auto) Ur Epithelial Cells Hyaline Casts Urine Mucus Urine Creatinine Stool Occult Blood Blood Type Antibody Screen Crossmatch Active Medications Generic Name Dose Route Start Last Admin Trade Name Freq PRN Reason Stop Dose Admin Chlorhexidine Gluconate 1 applic 04/04/18 22:00 Hibiclens For Decolonization - TP HS SAKSHI Piperacillin Sod/Tazobactam 50 mls @ 100 mls/hr 04/04/18 21:00 Sod 2.25 gm/ Dextrose IVPB Q6H-IV SAKSHI Sodium Chloride 1,000 mls @ 50 mls/hr 04/04/18 16:45 Normal Saline - IV 04/05/18 16:46 ASDIR SAKSHI Latanoprost 1 drop 04/04/18 22:00 Xalatan 0.005% Eye Drops - OU HS SAKSHI Metoprolol Tartrate 5 mg 04/04/18 11:45 04/04/18 12:19 Lopressor Injection - IVPUSH Not Given Q8H SAKSHI Metoprolol Tartrate 5 mg 04/04/18 11:44 Lopressor Injection - IVPUSH Q1H PRN TACHYCARDIA Mupirocin 1 applic 04/04/18 10:00 04/04/18 09:37 Bactroban Ointment (For Decolonization) - NS 04/09/18 09:59 1 applic BID SAKSHI Administration Pantoprazole Sodium 40 mg 04/04/18 10:00 04/04/18 09:34 Protonix Iv IVPUSH 40 mg BID SAKSHI Administration ASSESSMENT/PLAN: Patient is an 87 year old male with significant PMHx of distant CVA (residual left sided weakness) on Warfarin 4 mg qhs, chronic left carotid occlusion, HTN, HLD, and hemorrhoids presents with rectal bleeding, diarrhea like x2d. # Acute GI bleed c/o rectal bleed. No h/o GI bleed. H/H 8.9/27.3. Received 2 PRBC and 1 FFP overnight. Today H/H 9.6/29.5 Could be diverticular bleed however considering the age, ischemic colitis is high on the differential. Will monitor closely. CTA cannot be done due to MELVIN. Admitted in ICU. No active bleeding since admission. Appreciate GI input: Colonoscopy when medically stable. Advance to clears and if tolerates advance to full liquid diet. Repeat CBC Avoid A.c # Supratherapeutic INR Patient on Coumdain. INR on admission 5.8, was given Vit K, INR 2.9 today Repeat PT/INR in AM # SIRS On admission, patient presented with leukocytosis of 16, tachycardic, lactic acidosis. Was given IV Zosyn. Blood cultures pending No source of infection found yet, will continue with IV Antibiotics. ID consult requested. # MELVIN likely prerenal: from hypotension Baseline creatinine Certified Nursing Attendant 1.1 in 02/20 Renal ultrasound penidng Urine electrolytes pending IV Hydration. Avoid nephrotoxic drugs # Increased troponins demand ischemia vs NSTEMI Troponin increased 0.07--> 1.1--> 3.88 Cannot start a/c due to GI bleed Cardio on board continuous cardiac monitoring. Not a candidate for a/c or antiplatelets. # Hypertension-was hypotensive If hypertensive, give Metoprolol 5mg Q1H PRN # Hyperkalemia K-6.8 on admission, was treated, today it is 5.2 Monitor # FEN IV NS @ 50 mls.hr Electrolytes: WNL Clear liquid diet # Prophylaxis For DVT: On SCDs, hold a/c due to GI bleed For GI; Protonix 40mg BID # Code Status: Full Code # Dispo: Admitted in ICU. Illness, investigation and Plan of care explained to the patient. He verbalized understanding. Case discussed with Dr. Garcia. Problem List - Problems (1) Acute kidney insufficiency Code(s): N28.9 - DISORDER OF KIDNEY AND URETER, UNSPECIFIED (2) Anemia Code(s): D64.9 - ANEMIA, UNSPECIFIED (3) GIB (gastrointestinal bleeding) Code(s): K92.2 - GASTROINTESTINAL HEMORRHAGE, UNSPECIFIED Qualifiers: GI bleed type/associated pathology: anorectal hemorrhage Qualified Code(s) : K62.5 - Hemorrhage of anus and rectum (4) Hyperkalemia Code(s): E87.5 - HYPERKALEMIA (5) Lactic acid acidosis Code(s): E87.2 - ACIDOSIS (6) Sepsis Code(s): A41.9 - SEPSIS, UNSPECIFIED ORGANISM (7) Supratherapeutic INR Code(s): R79.1 - ABNORMAL COAGULATION PROFILE (8) Warfarin toxicity Code(s): T45.511A - POISONING BY ANTICOAGULANTS, ACCIDENTAL, INIT Visit type - Emergency Visit Emergency Visit: Yes ED Registration Date: 04/03/18 Care time: The patient presented to the Emergency Department on the above date and was hospitalized for further evaluation of their emergent condition. - New Patient This patient is new to me today: Yes Date on this admission: 04/04/18 - Critical Care Critical Care patient: Yes Total Critical Care Time (in minutes): 35 Critical Care Statement: The care of this patient involved high complexity decision making to prevent further life threatening deterioration of the patient 's condition and/or to evaluate & treat vital organ system(s) failure or risk of failure.
[2018-04-04] MEDS: SODIUM CHLORIDE 1,000 ML IV SCH (17:46)
--- NOTE | 2018-04-04 18:48 | CON.ID ---
Consult Consult Specialty:: infectious diseases Referred by:: Reason for Consultation:: uti,sepsis,porbably diverticulitis. leukocytosis - History of Present Illness Chief Complaint: bleeding perrectum History of Present Illness: 87 y.o. M w/ PMH of distant CVA (residual left sided weakness) on Warfarin 4 mg qhs, chronic left carotid occlusion, HTN, HLD, and hemorrhoids admitted with rectal bleeding, diarrhea like x2d. , Pt. started bleeding yesterday and it continued Pt.'s stated that she knows the difference between spotting on toilet paper from the Pt.'s hemorrhoids and a larger bleed. She noticed blood in the toilet but was unable to quantify the amount of blood. Pt. sometimes strains when using the bathroom. Pt. has never had a colonoscopy. Pt. currently takes Warfarin 4mg HS but did not take tonight's dose because of the bleeding. Pt. endorses spitting up phlegm in the ED but denies n/v. The phlegm did not contain any blood or discoloration. Pt. denies any bleeding in the gums or hemoptysis. Pt. denies any dizziness, lightheadedness, numbness/tingling, chest pain, abdominal pain, shortness of breath, palpitations, head ache, sudden changes in vision or any other complaints at this time except for a bed sore which is uncomfortable for him. the above was admission history as patient is a poor historian patient looked very weak and was admitted to icu and now is starting to feel better - History Source History Provided By: Patient, Medical Record Limitations to Obtaining History: Poor Historian - Past Medical History AU PAIR: Yes: CVA Cardio/Vascular: Yes: HTN, Hyperlipdemia, Other (carotid stenosis) - Alcohol/Substance Use Hx Alcohol Use: No - Smoking History Smoking history: Former smoker Have you smoked in the past 12 months: No Home Medications - Allergies Allergies/Adverse Reactions: Allergies Allergy/AdvReac Type Severity Reaction Status Date / Time No Known Allergies Allergy Verified 04/03/18 20:16 - Home Medications Home Medications: Ambulatory Orders Atorvastatin Ca [Lipitor] 20 mg PO DAILY 04/03/18 Diltiazem [Cardizem -] 120 mg PO DAILY 04/03/18 Latanoprost/Pf [Latanoprost 0.005% Eye Drop] 1 drop OU HS 04/03/18 Sertraline HCl [Zoloft -] 50 mg PO DAILY 04/03/18 Spironolactone [Aldactone] 25 mg PO DAILY 04/03/18 Torsemide [Demadex -] 20 mg PO BID 04/03/18 Warfarin Sodium 4 mg PO HS 04/03/18 Family Disease History - Family Disease History Family Disease History: Heart Disease: Father, CA: Mother (gatric) Review of Systems - Review of Systems Constitutional: reports: Weakness Eyes: reports: No Symptoms HENT: reports: No Symptoms Neck: reports: No Symptoms Cardiovascular: reports: No Symptoms Respiratory: reports: No Symptoms Gastrointestinal: reports: Melena, Other (rectal bleed) Genitourinary: reports: No Symptoms Musculoskeletal: reports: No Symptoms Integumentary: reports: No Symptoms Neurological: reports: Weakness Endocrine: reports: No Symptoms Hematology/Lymphatic: reports: No Symptoms Psychiatric: reports: No Symptoms Physical Exam Vital Signs: Vital Signs Temperature 98.5 F 04/04/18 17:30 Pulse Rate 70 04/04/18 17:30 Respiratory Rate 14 04/04/18 17:30 Blood Pressure 91/57 L 04/04/18 17:30 O2 Sat by Pulse Oximetry (%) 99 04/04/18 08:21 Constitutional: Yes: No Distress, Calm Eyes: Yes: Conjunctiva Clear Neck: Yes: Supple, Trachea Midline Cardiovascular: Yes: Regular Rate and Rhythm Respiratory: Yes: Regular, CTA Bilaterally Gastrointestinal: Yes: Soft, Hypoactive Bowel Sounds ...Rectal Exam: Yes: Guaiac Positive, Other (rectal bleed) Musculoskeletal: Yes: WNL Extremities: Yes: WNL Neurological: Yes: Alert, Oriented Psychiatric: Yes: Alert, Oriented Labs: CBC, BMP 04/04/18 14:00 04/04/18 08:00 Imaging - Results Chest X-ray: Report Reviewed, Image Reviewed Ultrasound: Report Reviewed, Image Reviewed Assessment/Plan Problem List - Problems (1) GIB (gastrointestinal bleeding) Code(s): K92.2 - GASTROINTESTINAL HEMORRHAGE, UNSPECIFIED Qualifiers: GI bleed type/associated pathology: anorectal hemorrhage Qualified Code(s) : K62.5 - Hemorrhage of anus and rectum (2) Sepsis Code(s): A41.9 - SEPSIS, UNSPECIFIED ORGANISM (3) Lactic acid acidosis Code(s): E87.2 - ACIDOSIS (4) Warfarin toxicity Code(s): T45.511A - POISONING BY ANTICOAGULANTS, ACCIDENTAL, INIT (5) NSTEMI (non-ST elevated myocardial infarction) Code(s): I21.4 - NON-ST ELEVATION (NSTEMI) MYOCARDIAL INFARCTION (6) Acute kidney insufficiency Code(s): N28.9 - DISORDER OF KIDNEY AND URETER, UNSPECIFIED (7) Anemia Code(s): D64.9 - ANEMIA, UNSPECIFIED patient symptoms could be due to infectious colitis but his symptoms essentially could be from the bleed itself plan we will continue abx for now monitor wbc should get a ct of the abd await for all cx including urine monitor h and h rest as per icu close watch cc 45 min
[2018-04-04] MEDS ORDERED: PIPERACILLIN/TAZOB 2.25 GM 2.25 GM in DEXTROSE 5%-WATER - 50 ML IVPB SCH (21:00)
[2018-04-04] MEDS ORDERED: CHLORHEXIDINE GLUCONATE 4% CLEANSER FOR DECOLONIZATION TP SCH (22:00)
[2018-04-04] MEDS ORDERED: METOPROLOL TARTRATE 25 MG TABLET (FP) PO SCH (22:00)
[2018-04-04] MEDS ORDERED: LATANOPROST 0.005% OPHTH SOLN 2.5ML BOTTLE OU SCH (22:00)
[2018-04-04] MEDS ORDERED: ATORVASTATIN CA 20 MG TABLET (FP) PO SCH (22:00)
[2018-04-05] MEDS ORDERED: PIPERACILLIN/TAZOBACTAM 2.25 GM VIAL IVPB ONE ×3 (00:59→16:48)
[2018-04-05] MEDS ORDERED: DEXTROSE 5%-WATER - 50 ML IVPB ONE ×3 (00:59→16:48)
[2018-04-05] MEDS ORDERED: PT OWN MED DRAWER 7, Y5N ONE (01:10)
[2018-04-05] MEDS: PIPERACILLIN/TAZOB 2.25 GM 2.25 GM in DEXTROSE 5%-WATER - 50 ML IVPB SCH ×3 (01:11→18:11)
[2018-04-05 06:11] LABS: BASO % 0.9 % (0-2.0); EOS % 0.1 % (0-4.5); HEMATOCRIT 29.3 % (35.4-49); HEMOGLOBIN 9.8 GM/dL (11.7-16.9); LYMPH % 5.1 % (8-40); MCH 30.4 pg (25.7-33.7); MCHC 33.3 g/dl (32.0-35.9); MEAN CELL VOLUME 91.3 fl (80-96); MEAN PLT VOLUME 8.3 fl (7.5-11.1); MONO % 5.6 % (3.8-10.2); NEUT % 88.3 % (42.8-82.8); PLATELET COUNT 251 K/MM3 (134-434); RBC 3.21 M/mm3 (4.00-5.60); RDW 16.2 % (11.9-15.9); WHITE BLOOD COUNT 10.4 K/mm3 (4.0-10.0)
[2018-04-05 06:34] LABS: INR 1.95 (0.83-1.09); PROTHROMBIN TIME (PATIENT) 23.2 SEC (9.7-13.0)
[2018-04-05 06:36] LABS: ACTIVATED PTT 29.4 SECONDS (25.2-36.5)
[2018-04-05 07:23] LABS: ANION GAP 7 MMOL/L (8-16); BLOOD UREA NITROGEN 44 mg/dL (7-18); CALCIUM 8.3 mg/dL (8.5-10.1); CHLORIDE 113 mmol/L (98-107); CO2 22 mmol/L (21-32); CREATININE 1.7 mg/dL (0.55-1.3); GLUCOSE,RANDOM 108 mg/dL (74-106); MAGNESIUM 2.2 mg/dL (1.8-2.4); PHOSPHOROUS 3.5 mg/dL (2.5-4.9); SODIUM 142 mmol/L (136-145)
--- NOTE | 2018-04-05 08:41 | PN ---
Progress Note, Physician Chief Complaint: GIB History of Present Illness: no rectal blood or melena continues to deny at any time any cp, sob no palpit ex-cigs - Current Medication List Current Medications: Active Medications Sodium Chloride (Normal Saline -) 1,000 mls @ 50 mls/hr IV ASDIR SAKSHI Stop: 04/05/18 16:46 Last Admin: 04/04/18 17:46 Dose: 50 mls/hr Piperacillin Sod/Tazobactam (Sod 2.25 gm/ Dextrose) 50 mls @ 100 mls/hr IVPB Q8H-IV SAKSHI; Protocol Last Admin: 04/05/18 01:11 Dose: 100 mls/hr Latanoprost (Xalatan 0.005% Eye Drops -) 1 drop OU HS SAKSHI Metoprolol Tartrate (Lopressor -) 25 mg PO BID SAKSHI Last Admin: 04/04/18 21:14 Dose: 25 mg Pantoprazole Sodium (Protonix Iv) 40 mg IVPUSH BID [facility] - Objective Vital Signs: Vital Signs Temperature 97.3 F L 04/05/18 05:46 Pulse Rate 84 04/05/18 05:46 Respiratory Rate 18 04/05/18 05:46 Blood Pressure 96/58 L 04/05/18 05:46 O2 Sat by Pulse Oximetry (%) 98 04/04/18 21:00 Constitutional: Yes: No Distress, Calm Eyes: No: Sclera Icterus HENT: No: Nasal Congestion Cardiovascular: Yes: Pulse Irregular, S1, S2, Other (PMI non diplaced). No: Gallop, Murmur Respiratory: Yes: CTA Bilaterally. No: Accessory Muscle Use, Rales, Wheezes Gastrointestinal: Yes: Normal Bowel Sounds, Soft. No: Tenderness Musculoskeletal: Yes: Other (No kyphosis) Extremities: No: Cyanosis Edema: No Integumentary: No: Jaundice Neurological: Yes: Alert, Oriented (x3) Psychiatric: No: Agitated Labs: CBC, BMP 04/05/18 06:00 04/05/18 06:00 INR, PTT INR 1.95 (0.83-1.09) H 04/05/18 06:00 Assessment/Plan EKG 04/03 (19:17): poor baseline, prob fib/flutter. HR 106. 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 [address]-Ts I/avL EKG 04/04: afib, more pronounced STs lateral leads ECG 04/05: afib, no change vs 04/04 CXR: clear lungs/pleura Echo 03/22: nl LV size. mild decr EF (45-50%). RWMA tds. inferolateral wall appears mildly HK. nl RV. mild TR. PASP at least 49. LGIB, preop CV eval for FOC and/or EGD: -per GI -INR was high, warfarin reversed (vit K 5mg)--INR coming down -pt at increased risk for lawrence-procedural ischemic complications given myocardial injury with hi troponin: while this is secondary (i.e. demand ischemia), his underlying coronary anatomy/ischemic burden is unknown, and Type II FL still confers adverse prognostic value. however, evaluating his ischemic burden with pharmacologic stress test will not global climate change analyst as we are already optimizing his BB dose as much as his BP will allow, and he is not a candidate for any invasive tx strategy or anti-PLT/AC meds. He requires AC due to prior CVA history with high risk of cardioembolic stroke (CHADS VASC = 5-6, i.e. risk of stroke is 6.5-10%/year), therefore cannot safely defer GI scopes for definitive tx of underlying bleeding culprit. his risk of stroke if he is maintained off AC is statistically signif higher than his lawrence-procedural CV risk (vijay if one factors in > 1 year of being off AC). he is medically optimized (continue bb, statin as doing) to the extent possible and he has had no s/sx of CHF or angina, with preserved LVEF. no further testing or CV optimization indicated prior to procedures. Afib: -rapid HR initially due to active bleeding with hypotension, improving with improved hemodynamics -low BP limits AVN blocking med options. low GFR risk for digoxin -tolerating moderate dose lopressor with soft but stable bp's, HRs reasonable-- continue same -h/o CVA -on warfarin--being held for LGIB with hemodynamic consequences. resume later after FOC once cleared by GI NSTEMI: -trop 0.07-->rising to 4. -likely secondary to acute hypotension/tachy, i.e. deman ischemia/Type II FL -trend trop.s to peak -ECG's stable -echo with mild decr EF, ? regional per report (TDS regional wall motion) -not a candidate for anti-PLTs, AC or invasive interventions regardless -aggressive treatment of GIB as doing, monitor H/H and transfuse for Hgb < 8 -cont BB, HR control as doing. statin. -remains asymptomatic -should have risk-stratification with pharm MPI once acute issues resolve MELVIN: -baseline creat 1.1 in 02/20 -initial creat 2.4, coming down with IVF -cont IV fluid aggressively, hgb support as doing. pulm HTN: -at least mild-mod pulm HTN on echo here, possibly high left sided filling pressures due to acute ischemia/rapid AF -outpt f/u HTN: -hold home anti-hypertensive meds for now, given hemodynamically unstable with bleeding HPL, h/o carotid dz: -resume home atorva
[2018-04-05] MEDS: METOPROLOL TARTRATE 25 MG TABLET (FP) PO SCH ×3 (09:59→21:26)
[2018-04-05] MEDS: PANTOPRAZOLE SODIUM 40 MG VIAL IVPUSH SCH ×2 (09:59→21:27)
--- NOTE | 2018-04-05 10:00 | PN ---
Progress Note, Physician Chief Complaint: Mr Upton says he is feeling fine and is without complaint. No cp, sob, n/ v. States that he has no longer had any blood or bowel movements but is passing gas. - Current Medication List Current Medications: Active Medications Atorvastatin Calcium (Lipitor -) 20 mg PO HS [facility] Sodium Chloride (Normal Saline -) 1,000 mls @ 50 mls/hr IV ASDIR SAKSHI Stop: 04/05/18 16:46 Last Admin: 04/04/18 17:46 Dose: 50 mls/hr Piperacillin Sod/Tazobactam (Sod 2.25 gm/ Dextrose) 50 mls @ 100 mls/hr IVPB Q8H-IV [facility]; Protocol Last Admin: 04/05/18 01:11 Dose: 100 mls/hr Latanoprost (Xalatan 0.005% Eye Drops -) 1 drop OU HS [facility] Metoprolol Tartrate (Lopressor -) 25 mg PO TID [facility] Pantoprazole Sodium (Protonix Iv) 40 mg IVPUSH BID SAK[facility]I - Objective Vital Signs: Vital Signs Temperature 36.3 C L 04/05/18 05:46 Pulse Rate 84 04/05/18 05:46 Respiratory Rate 18 04/05/18 05:46 Blood Pressure 96/58 L 04/05/18 05:46 O2 Sat by Pulse Oximetry (%) 98 04/04/18 21:00 Constitutional: Yes: No Distress, Calm, Obese Cardiovascular: Yes: Regular Rate and Rhythm. No: Gallop, Murmur, Rub Respiratory: Yes: Regular, CTA Bilaterally. No: Rales, Rhonchi, Wheezes Gastrointestinal: Yes: Normal Bowel Sounds, Soft. No: Distention, Tenderness Extremities: Yes: WNL Edema: No Labs: CBC, BMP 04/05/18 06:00 04/05/18 06:00 INR, PTT INR 1.95 (0.83-1.09) H 04/05/18 06:00 Problem List - Problems (1) GIB (gastrointestinal bleeding) Code(s): K92.2 - GASTROINTESTINAL HEMORRHAGE, UNSPECIFIED Qualifiers: GI bleed type/associated pathology: anorectal hemorrhage Qualified Code(s) : K62.5 - Hemorrhage of anus and rectum (2) Sepsis Code(s): A41.9 - SEPSIS, UNSPECIFIED ORGANISM (3) Lactic acid acidosis Code(s): E87.2 - ACIDOSIS (4) Warfarin toxicity Code(s): T45.511A - POISONING BY ANTICOAGULANTS, ACCIDENTAL, INIT (5) NSTEMI (non-ST elevated myocardial infarction) Code(s): I21.4 - NON-ST ELEVATION (NSTEMI) MYOCARDIAL INFARCTION (6) Acute kidney insufficiency Code(s): N28.9 - DISORDER OF KIDNEY AND URETER, UNSPECIFIED (7) Anemia Code(s): D64.9 - ANEMIA, UNSPECIFIED Assessment/Plan (1) GIB (gastrointestinal bleeding) Assessment/Plan: -patient states no further bleeding -appears stable -continue to hold AC -continue protonix -check cbc this am -colonoscopy when medically stable, still with elevated troponins Code(s): K92.2 - GASTROINTESTINAL HEMORRHAGE, UNSPECIFIED Qualifiers: GI bleed type/associated pathology: anorectal hemorrhage Qualified Code(s) : K62.5 - Hemorrhage of anus and rectum (2) Sepsis Assessment/Plan: -appreciate ID assistance -continue zosyn currently -follow up cultures Code(s): A41.9 - SEPSIS, UNSPECIFIED ORGANISM (3) Lactic acid acidosis Assessment/Plan: -resolved Code(s): E87.2 - ACIDOSIS (4) Warfarin toxicity Assessment/Plan: -s/p vitamin k -hold coumadin -follow INR Code(s): T45.511A - POISONING BY ANTICOAGULANTS, ACCIDENTAL, INIT (5) NSTEMI (non-ST elevated myocardial infarction) Assessment/Plan: -troponin continues to elevate -cardiology following -cannot anticoagulate secondary to GI bleed -metoprolol and lipitor Code(s): I21.4 - NON-ST ELEVATION (NSTEMI) MYOCARDIAL INFARCTION (6) Acute kidney insufficiency Assessment/Plan: -case d/w Dr Smith -s/p transfusion -IVF Code(s): N28.9 - DISORDER OF KIDNEY AND URETER, UNSPECIFIED (7) Anemia Assessment/Plan: -improved with transfusion Code(s): D64.9 - ANEMIA, UNSPECIFIED
--- NOTE | 2018-04-05 11:24 | PN ---
GI Progress Note Subjective: No overt bleeding Denies abdominal pain - Objective Vital Signs: Vital Signs Temperature 97.3 F L 04/05/18 05:46 Pulse Rate 84 04/05/18 05:46 Respiratory Rate 18 04/05/18 05:46 Blood Pressure 96/58 L 04/05/18 05:46 O2 Sat by Pulse Oximetry (%) 98 04/04/18 21:00 Constitutional: Calm Eyes: No: Sclera Icterus Cardiovascular: Yes: Pulse Irregular Respiratory: Yes: Rhonchi (at bases bilaterally) Gastrointestinal Inspection: No: Ascites ...Auscultate: Yes: Normoactive Bowel Sounds ...Palpate: No: Hepatomegaly, Splenomegaly ...Percussion: No: Tympanitic Edema: No (No LE edema) Neurological: Yes: Alert Labs: CBC, BMP 04/05/18 06:00 04/05/18 06:00 INR, PTT INR 1.95 (0.83-1.09) H 04/05/18 06:00 Problem List - Problems (1) Rectal bleed Assessment/Plan: No further bleeding Discussed clinical situation with Mr. Upton. Explained that I discussed things with Dr. Dunlap this morning. Despite Mr. Upton being considered a higher risk, he explained that upper endoscopy / colonoscopy could be undertaken to assess for a source of the bleeding. I reiterated Dr. Dunlap's concern that Mr. Upton is at a higher risk for stroke and that risk would increase with prolonged avoidance of anticoagulation. I explained that evaluating for a source of bleeding would be important prior to reinitiating blood thinners. We discussed potential risks of the procedures like but not limited to bleeding, perforation requiring surgery to repair, infection, sedation medication effects all of which could be potentially life threatening. He stated that he was uncertain at this time whether or not he wants to undergo procedures at this time and would like to discuss things with his . For now: Clear liquids Monitor H/H and for active bleeding If profuse rectal bleeding, Bleeding scan and surgical consult as CTA would pose risk of kidney dysfunction in the setting of renal insufficisncy. Code(s): K62.5 - HEMORRHAGE OF ANUS AND RECTUM
--- NOTE | 2018-04-05 13:49 | PN ---
Progress Note, Physician History of Present Illness: patient feels much better in the room no bleeding' wbc trending down - Current Medication List Current Medications: Active Medications Atorvastatin Calcium (Lipitor -) 20 mg PO HS [facility] Sodium Chloride (Normal Saline -) 1,000 mls @ 50 mls/hr IV ASDIR SAKSHI Stop: 04/05/18 16:46 Last Admin: 04/04/18 17:46 Dose: 50 mls/hr Piperacillin Sod/Tazobactam (Sod 2.25 gm/ Dextrose) 50 mls @ 100 mls/hr IVPB Q8H-IV SAKSHI; Protocol Last Admin: 04/05/18 09:59 Dose: 100 mls/hr Latanoprost (Xalatan 0.005% Eye Drops -) 1 drop OU HS [facility] Metoprolol Tartrate (Lopressor -) 25 mg PO TID [facility] Last Admin: 04/05/18 09:59 Dose: 25 mg Pantoprazole Sodium (Protonix Iv) 40 mg IVPUSH BID [facility] Last Admin: 04/05/18 09:59 Dose: 40 mg - Objective Vital Signs: Vital Signs Temperature 97.8 F 04/05/18 09:00 Pulse Rate 84 04/05/18 09:00 Respiratory Rate 18 04/05/18 09:00 Blood Pressure 110/66 04/05/18 09:00 O2 Sat by Pulse Oximetry (%) 98 04/05/18 09:00 Constitutional: Yes: No Distress, Calm Cardiovascular: Yes: S1, S2 Respiratory: Yes: Regular, On Nasal O2 Gastrointestinal: Yes: Normal Bowel Sounds, Soft Musculoskeletal: Yes: WNL Extremities: Yes: WNL Neurological: Yes: Alert, Oriented Psychiatric: Yes: Alert, Oriented Labs: CBC, BMP 04/05/18 06:00 04/05/18 06:00 INR, PTT INR 1.95 (0.83-1.09) H 04/05/18 06:00 Assessment/Plan Problem List - Problems (1) GIB (gastrointestinal bleeding) Code(s): K92.2 - GASTROINTESTINAL HEMORRHAGE, UNSPECIFIED Qualifiers: GI bleed type/associated pathology: anorectal hemorrhage Qualified Code(s) : K62.5 - Hemorrhage of anus and rectum (2) Sepsis Code(s): A41.9 - SEPSIS, UNSPECIFIED ORGANISM (3) Lactic acid acidosis Code(s): E87.2 - ACIDOSIS (4) Warfarin toxicity Code(s): T45.511A - POISONING BY ANTICOAGULANTS, ACCIDENTAL, INIT (5) NSTEMI (non-ST elevated myocardial infarction) Code(s): I21.4 - NON-ST ELEVATION (NSTEMI) MYOCARDIAL INFARCTION (6) Acute kidney insufficiency Code(s): N28.9 - DISORDER OF KIDNEY AND URETER, UNSPECIFIED (7) Anemia Code(s): D64.9 - ANEMIA, UNSPECIFIED plan continue current abx close watch monitor wbc await for all cx results rest as per the team
--- NOTE | 2018-04-05 13:54 | PN ---
Progress Note, Physician History of Present Illness: Pt seen and examined at bedside. He is awake and alert. He denies shortness of breath. - Current Medication List Current Medications: Active Medications Atorvastatin Calcium (Lipitor -) 20 mg PO HS [facility] Sodium Chloride (Normal Saline -) 1,000 mls @ 50 mls/hr IV ASDIR SAKSHI Stop: 04/05/18 16:46 Last Admin: 04/04/18 17:46 Dose: 50 mls/hr Piperacillin Sod/Tazobactam (Sod 2.25 gm/ Dextrose) 50 mls @ 100 mls/hr IVPB Q8H-IV [facility]; Protocol Last Admin: 04/05/18 09:59 Dose: 100 mls/hr Latanoprost (Xalatan 0.005% Eye Drops -) 1 drop OU HS [facility] Metoprolol Tartrate (Lopressor -) 25 mg PO TID [facility] Last Admin: 04/05/18 09:59 Dose: 25 mg Pantoprazole Sodium (Protonix Iv) 40 mg IVPUSH BID [facility] Last Admin: 04/05/18 09:59 Dose: 40 mg - Objective Vital Signs: Vital Signs Temperature 97.8 F 04/05/18 09:00 Pulse Rate 84 04/05/18 09:00 Respiratory Rate 18 04/05/18 09:00 Blood Pressure 110/66 04/05/18 09:00 O2 Sat by Pulse Oximetry (%) 98 04/05/18 09:00 Constitutional: Yes: Calm Eyes: Yes: Conjunctiva Clear HENT: Yes: Atraumatic Cardiovascular: Yes: S1, S2 Respiratory: Yes: On Nasal O2 Gastrointestinal: Yes: Soft Genitourinary: Yes: WNL Edema: No Neurological: Yes: Oriented Labs: CBC, BMP 04/05/18 06:00 04/05/18 06:00 INR, PTT INR 1.95 (0.83-1.09) H 04/05/18 06:00 Assessment/Plan Current Medications Generic Name Dose Route Start Last Admin Trade Name Freq PRN Reason Stop Dose Admin Atorvastatin Calcium 20 mg 04/05/18 22:00 Lipitor - PO HS SAKSHI Sodium Chloride 1,000 mls @ 50 mls/hr 04/04/18 16:45 04/04/18 17:46 Normal Saline - IV 04/05/18 16:46 50 mls/hr ASDIR SAKSHI Administration Piperacillin Sod/Tazobactam 50 mls @ 100 mls/hr 04/05/18 02:00 04/05/18 09:59 Sod 2.25 gm/ Dextrose IVPB 100 mls/hr Q8H-IV SAKSHI Administration Protocol Latanoprost 1 drop 04/05/18 22:00 Xalatan 0.005% Eye Drops - OU HS S[facility]I Metoprolol Tartrate 25 mg 04/05/18 09:30 04/05/18 09:59 Lopressor - PO 25 mg TID SAKSHI Administration Pantoprazole Sodium 40 mg 04/05/18 10:00 04/05/18 09:59 Protonix Iv IVPUSH 40 mg BID SAKSHI Administration Impression 1. MELVIN 2. anemia 3. gi bleed 4. hypotension 5. HLD 6. hx cva 7. lactic acidosis 8. hyperkalemia Plan - renal function continues to improve - repeat labs in am - cont fluids - potassium stable - monitor bp and avoid hypotension - melvin likely from atn secondary to prolonges prerenal disease from blood loss Dr Smith
[2018-04-05] MEDS: SODIUM CHLORIDE 1,000 ML IV SCH (18:11)
--- NOTE | 2018-04-05 18:13 | PN ---
Progress Note (short form) - Note Progress Note: I was trying to schedule the patient for EGD and colonoscopy. I spoke to the patients this evening and advised that EGD and colonoscopy would be important before restarting anticoagulation. The patient is undecided and understands risk of not undergoing the procedure. He is high risk of doing any gi procedures because of his low EF.
[2018-04-05] MEDS: ATORVASTATIN CA 20 MG TABLET (FP) PO SCH (21:27)
[2018-04-05] MEDS: LATANOPROST 0.005% OPHTH SOLN 2.5ML BOTTLE OU SCH (21:30)
[2018-04-06] MEDS ORDERED: DEXTROSE 5%-WATER - 50 ML IVPB ONE ×2 (02:08→09:03)
[2018-04-06] MEDS ORDERED: PIPERACILLIN/TAZOBACTAM 2.25 GM VIAL IVPB ONE ×2 (02:08→09:03)
[2018-04-06] MEDS: PIPERACILLIN/TAZOB 2.25 GM 2.25 GM in DEXTROSE 5%-WATER - 50 ML IVPB SCH ×2 (02:11→09:18)
[2018-04-06] MEDS: METOPROLOL TARTRATE 25 MG TABLET (FP) PO SCH ×3 (05:40→21:05)
[2018-04-06 07:19] LABS: BASO % 0.7 % (0-2.0); EOS % 0.4 % (0-4.5); HEMATOCRIT 27.8 % (35.4-49); HEMOGLOBIN 9.1 GM/dL (11.7-16.9); LYMPH % 6.7 % (8-40); MCH 30.3 pg (25.7-33.7); MCHC 32.6 g/dl (32.0-35.9); MEAN CELL VOLUME 92.8 fl (80-96); MEAN PLT VOLUME 8.2 fl (7.5-11.1); NEUT % 85.2 % (42.8-82.8); PLATELET COUNT 251 K/MM3 (134-434); WHITE BLOOD COUNT 7.7 K/mm3 (4.0-10.0)
[2018-04-06 07:43] LABS: ANION GAP 5 MMOL/L (8-16); BLOOD UREA NITROGEN 32 mg/dL (7-18); CALCIUM 8.1 mg/dL (8.5-10.1); CHLORIDE 114 mmol/L (98-107); CO2 24 mmol/L (21-32); CREATININE 1.4 mg/dL (0.55-1.3); GLUCOSE,RANDOM 97 mg/dL (74-106); MAGNESIUM 2.4 mg/dL (1.8-2.4); PHOSPHOROUS 2.6 mg/dL (2.5-4.9); POTASSIUM 4.6 mmol/L (3.5-5.1); SODIUM 144 mmol/L (136-145)
[2018-04-06 07:45] LABS: INR 1.66 (0.83-1.09); PROTHROMBIN TIME (PATIENT) 19.7 SEC (9.7-13.0)
--- NOTE | 2018-04-06 09:15 | PN ---
Progress Note (short form) - Note Progress Note: Chief Complaint: GIB History of Present Illness: feels better and wants to go home, no rectal bleeding or melena. no chest pain, palps, dizziness, lightheadedness. Current Medications Atorvastatin Calcium (Lipitor -) 20 mg PO HS [facility] Last Admin: 04/05/18 21:27 Dose: 20 mg Piperacillin Sod/Tazobactam (Sod 2.25 gm/ Dextrose) 50 mls @ 100 mls/hr IVPB Q8H-IV [facility]AK[facility]I; Protocol Last Admin: 04/06/18 02:11 Dose: 100 mls/hr Latanoprost (Xalatan 0.005% Eye Drops -) 1 drop OU HS [facility] Last Admin: 04/05/18 21:30 Dose: Not Given Metoprolol Tartrate (Lopressor -) 25 mg PO TID [facility] Last Admin: 04/06/18 05:40 Dose: 25 mg Pantoprazole Sodium (Protonix Iv) 40 mg IVPUSH BID [facility] Last Admin: 04/05/18 21:27 Dose: 40 mg Vital Signs Period Temp Pulse Resp BP Sys/Daniel Pulse Ox Last 24 Hr 97.6 F-98.1 F 83-94 18-18 106-110/57-75 99 Constitutional: Yes: No Distress, Calm Eyes: No: Sclera Icterus HENT: No: Nasal Congestion Cardiovascular: Yes: Pulse Irregular, S1, S2, Other (PMI non diplaced). No: Gallop, Murmur Respiratory: Yes: CTA Bilaterally. No: Accessory Muscle Use, Rales, Wheezes Gastrointestinal: Yes: Normal Bowel Sounds, Soft. No: Tenderness Musculoskeletal: Yes: Other (No kyphosis) Extremities: No: Cyanosis Edema: No Integumentary: No: Jaundice Neurological: Yes: Alert, Oriented (x3) Psychiatric: No: Agitated Assessment/Plan EKG 04/03 (19:17): poor baseline, prob fib/flutter. HR 106. 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 nonsp ST-Ts I/avL EKG 04/04: afib, more pronounced STs lateral leads ECG 04/05: afib, no change vs 04/04 CXR: clear lungs/pleura Echo 03/22: nl LV size. mild decr EF (45-50%). RWMA tds. inferolateral wall appears mildly HK. nl RV. mild TR. PASP at least 49. tele: afib, rate controlled, PVCs LGIB, preop CV eval for FOC and/or EGD: -per GI -INR was high, warfarin reversed (vit K 5mg)--INR coming down -pt at increased risk for lawrence-procedural ischemic complications given myocardial injury with hi troponin: while this is secondary (i.e. 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 however, evaluating his ischemic burden with pharmacologic stress test will not climate change risk assessor as we are already optimizing his BB dose as much as his BP will allow, and he is not a candidate for any invasive tx strategy or anti-PLT/AC meds. He requires AC due to prior CVA history with high risk of cardioembolic stroke (CHADS VASC = 5-6, i.e. risk of stroke is 6.5-10%/year), therefore cannot safely defer GI scopes for definitive tx of underlying bleeding culprit. his risk of stroke if he is maintained off AC is statistically signif higher than his lawrence-procedural CV risk (vijay if one factors in > 1 year of being off AC). he is medically optimized (continue bb, statin as doing) to the extent possible and he has had no s/sx of CHF or angina, with preserved LVEF. no further testing or CV optimization indicated prior to procedures. Afib: -rapid HR initially due to active bleeding with hypotension, improving with improved hemodynamics -low BP limits AVN blocking med options. low GFR risk for digoxin -tolerating moderate dose lopressor with soft but stable bp's, HRs reasonable-- stable on tele, continue same dose -h/o CVA -on warfarin at home--being held for LGIB with hemodynamic consequences. resume later after FOC once cleared by GI NSTEMI: -trop peaked 4.5, now downtrending -likely secondary to acute hypotension/tachy, i.e. deman ischemia/Type II IA -ECG's stable -echo with mild decr EF, ? regional per report (TDS regional wall motion) -not a candidate for anti-PLTs, AC or invasive interventions regardless -aggressive treatment of GIB as doing, monitor H/H and transfuse for Hgb < 8 -cont BB, HR control as doing. statin. -remains asymptomatic -should have risk-stratification with pharm MPI once acute issues resolve MELVIN: -baseline creat 1.1 in 02/20 -initial creat 2.4, coming down with IVF -cont IV fluid aggressively, hgb support as doing. pulm HTN: -at least mild-mod pulm HTN on echo here, possibly high left sided filling pressures due to acute ischemia/rapid AF -outpt f/u HTN: -hold home anti-hypertensive meds for now, given hemodynamically unstable with bleeding HPL, h/o carotid dz: -resume home atorva
[2018-04-06] MEDS: PANTOPRAZOLE SODIUM 40 MG VIAL IVPUSH SCH ×2 (09:16→21:05)
--- NOTE | 2018-04-06 11:40 | PN ---
Progress Note, Physician History of Present Illness: Pt seen and examined at bedside. He is awake and alert. He denies shortness of breath. - Current Medication List Current Medications: Active Medications Atorvastatin Calcium (Lipitor -) 20 mg PO HS [facility] Last Admin: 04/05/18 21:27 Dose: 20 mg Piperacillin Sod/Tazobactam (Sod 2.25 gm/ Dextrose) 50 mls @ 100 mls/hr IVPB Q8H-IV [facility]; Protocol Last Admin: 04/06/18 09:18 Dose: 100 mls/hr Latanoprost (Xalatan 0.005% Eye Drops -) 1 drop OU HS [facility] Last Admin: 04/05/18 21:30 Dose: Not Given Metoprolol Tartrate (Lopressor -) 25 mg PO TID [facility] Last Admin: 04/06/18 05:40 Dose: 25 mg Pantoprazole Sodium (Protonix Iv) 40 mg IVPUSH BID [facility] Last Admin: 04/06/18 09:16 Dose: 40 mg - Objective Vital Signs: Vital Signs Temperature 98.1 F 04/06/18 09:14 Pulse Rate 94 H 04/06/18 09:14 Respiratory Rate 20 04/06/18 09:14 Blood Pressure 105/79 04/06/18 09:14 O2 Sat by Pulse Oximetry (%) 95 04/06/18 10:24 Constitutional: Yes: Calm Eyes: Yes: Conjunctiva Clear HENT: Yes: Atraumatic Neck: Yes: Supple Cardiovascular: Yes: S1, S2 Respiratory: Yes: On Nasal O2 Gastrointestinal: Yes: Soft Genitourinary: Yes: WNL Musculoskeletal: Yes: WNL Edema: No Neurological: Yes: Oriented Labs: CBC, BMP 04/06/18 06:47 04/06/18 06:47 INR, PTT INR 1.66 (0.83-1.09) H 04/06/18 06:47 Assessment/Plan Current Medications Generic Name Dose Route Start Last Admin Trade Name Freq PRN Reason Stop Dose Admin Atorvastatin Calcium 20 mg 04/05/18 22:00 04/05/18 21:27 Lipitor - PO 20 mg HS SAKSHI Administration Piperacillin Sod/Tazobactam 50 mls @ 100 mls/hr 04/05/18 02:00 04/06/18 09:18 Sod 2.25 gm/ Dextrose IVPB 100 mls/hr Q8H-IV SAKSHI Administration Protocol Latanoprost 1 drop 04/05/18 22:00 04/05/18 21:30 Xalatan 0.005% Eye Drops - OU Not Given HS [facility] Metoprolol Tartrate 25 mg 04/05/18 09:30 04/06/18 05:40 Lopressor - PO 25 mg TID SAKSHI Administration Pantoprazole Sodium 40 mg 04/05/18 10:00 04/06/18 09:16 Protonix Iv IVPUSH 40 mg BID SAKSHI Administration Impression 1. MELVIN 2. anemia 3. gi bleed 4. hypotension 5. HLD 6. hx cva 7. lactic acidosis 8. hyperkalemia Plan - cont to monitor renal function - repeat labs in am - decrease rate of fluids and change to 1/2 ns - potassium stable - monitor bp and avoid hypotension - melvin likely from atn secondary to prolonges prerenal disease from blood loss - monitor hg Dr Smith
--- NOTE | 2018-04-06 13:46 | PN ---
Progress Note, Physician History of Present Illness: stable no new issues wbc has normalized - Current Medication List Current Medications: Active Medications Atorvastatin Calcium (Lipitor -) 20 mg PO [facility] Last Admin: 04/05/18 21:27 Dose: 20 mg Latanoprost (Xalatan 0.005% Eye Drops -) 1 drop OU [facility] Last Admin: 04/05/18 21:30 Dose: Not Given Metoprolol Tartrate (Lopressor -) 25 mg PO TID [facility] Last Admin: 04/06/18 13:33 Dose: 25 mg Pantoprazole Sodium (Protonix Iv) 40 mg IVPUSH BID [facility] Last Admin: 04/06/18 09:16 Dose: 40 mg - Objective Vital Signs: Vital Signs Temperature 98.1 F 04/06/18 09:14 Pulse Rate 94 H 04/06/18 09:14 Respiratory Rate 20 04/06/18 09:14 Blood Pressure 105/79 04/06/18 09:14 O2 Sat by Pulse Oximetry (%) 95 04/06/18 10:24 Constitutional: Yes: No Distress, Calm Cardiovascular: Yes: S1, S2 Respiratory: Yes: Regular, CTA Bilaterally Gastrointestinal: Yes: Normal Bowel Sounds, Soft Musculoskeletal: Yes: WNL Extremities: Yes: WNL Neurological: Yes: Alert, Oriented Psychiatric: Yes: Alert, Oriented Labs: CBC, BMP 04/06/18 06:47 04/06/18 06:47 INR, PTT INR 1.66 (0.83-1.09) H 04/06/18 06:47 Assessment/Plan Problem List - Problems (1) GIB (gastrointestinal bleeding) Code(s): K92.2 - GASTROINTESTINAL HEMORRHAGE, UNSPECIFIED Qualifiers: GI bleed type/associated pathology: anorectal hemorrhage Qualified Code(s) : K62.5 - Hemorrhage of anus and rectum (2) Sepsis Code(s): A41.9 - SEPSIS, UNSPECIFIED ORGANISM (3) Lactic acid acidosis Code(s): E87.2 - ACIDOSIS (4) Warfarin toxicity Code(s): T45.511A - POISONING BY ANTICOAGULANTS, ACCIDENTAL, INIT (5) NSTEMI (non-ST elevated myocardial infarction) Code(s): I21.4 - NON-ST ELEVATION (NSTEMI) MYOCARDIAL INFARCTION (6) Acute kidney insufficiency Code(s): N28.9 - DISORDER OF KIDNEY AND URETER, UNSPECIFIED (7) Anemia Code(s): D64.9 - ANEMIA, UNSPECIFIED plan will stop abx all cx reports noted rest as per the team and nephro
--- NOTE | 2018-04-06 14:05 | PN ---
Physical Exam: SUBJECTIVE: Patient seen and examined at bed side this morning. Upset and doesn' t want to talk about endoscopy and colonoscopy. He states he is angry because the aid's tell him there is no blood in stool and the doctors tell him he has blood in the stool. Explained to him his stool for occult blood is positive and then he said he now understands. No acute overnight events. OBJECTIVE: Vital Signs Period Temp Pulse Resp BP Sys/Daniel Pulse Ox Last 24 Hr 97.6 F-98.1 F 83-94 18-20 105-110/57-79 95-99 GENERAL: Elderly male, sitting in bed comfortably, is awake, alert, and fully oriented, in no acute distress. HEAD: Normal with no signs of trauma. EYES: EOM intact, pallor +, no icterus. ENT: Ears normal, dry mucous membranes. NECK: Supple. LUNGS: Breath sounds equal, Crackles on the Left lung base, right lung clear. HEART: Regular rate and rhythm, S1, S2 without murmur. ABDOMEN: Soft, nontender, no organomegaly, BS +. EXTREMITIES: 2+ pulses, warm, well-perfused, no edema. NEUROLOGICAL: No facial droop, Normal speech, gait not observed. PSYCH: Normal mood, normal affect. SKIN: Warm, dry, normal turgor, no rashes or lesions noted Laboratory Results - last 24 hr 04/05/18 04/06/18 04/06/18 13:52 06:47 06:47 WBC 7.7 RBC 3.00 L Hgb 9.1 L Hct 27.8 L MCV 92.8 MCH 30.3 MCHC 32.6 RDW 16.0 H Plt Count 251 MPV 8.2 Absolute Neuts (auto) 6.5 Neutrophils % 85.2 H Lymphocytes % 6.7 L D Monocytes % 7.0 Eosinophils % 0.4 D Basophils % 0.7 Nucleated RBC % 0 PT with INR INR Sodium 144 Potassium 4.6 Chloride 114 H Carbon Dioxide 24 Anion Gap 5 L BUN 32 H Creatinine 1.4 H Creat Clearance w eGFR 48.05 Random Glucose 97 Calcium 8.1 L Phosphorus 2.6 Magnesium 2.4 Creatine Kinase 343 H Creatine Kinase Index 3.8 CK-MB (CK-2) 13.2 H Troponin I 3.32 H* 04/06/18 06:47 WBC RBC Hgb Hct MCV MCH MCHC RDW Plt Count MPV Absolute Neuts (auto) Neutrophils % Lymphocytes % Monocytes % Eosinophils % Basophils % Nucleated RBC % PT with INR 19.70 H INR 1.66 H Sodium Potassium Chloride Carbon Dioxide Anion Gap BUN Creatinine Creat Clearance w eGFR Random Glucose Calcium Phosphorus Magnesium Creatine Kinase Creatine Kinase Index CK-MB (CK-2) Troponin I Active Medications Generic Name Dose Route Start Last Admin Trade Name Freq PRN Reason Stop Dose Admin Atorvastatin Calcium 20 mg 04/05/18 22:00 04/05/18 21:27 Lipitor - PO 20 mg HS SAKSHI Administration Latanoprost 1 drop 04/05/18 22:00 04/05/18 21:30 Xalatan 0.005% Eye Drops - OU Not Given HS SAKSHI Metoprolol Tartrate 25 mg 04/05/18 09:30 04/06/18 13:33 Lopressor - PO 25 mg TID SAKSHI Administration Pantoprazole Sodium 40 mg 04/05/18 10:00 04/06/18 09:16 Protonix Iv IVPUSH 40 mg BID SAK[facility]I Administration ASSESSMENT/PLAN: Patient is an 87 year old male with significant PMHx of distant CVA (residual left sided weakness) on Warfarin 4 mg qhs, chronic left carotid occlusion, HTN, HLD, and hemorrhoids presents with rectal bleeding, diarrhea like x2d. # Acute GI bleed-now resolved No active GI bleed. However, the need for colonoscopy and endoscopy is important given the patient's h/o CVA and needs to be on a/c Patient is upset and is refusing to discuss about the needed procedure. Will try to call his and explain the importance of the procedure ( unsure if patient understands) For now, monitor closely for any GI bleed Currently off A/c # Supratherapeutic INR now subtherapeutic INR. Patient on Coumdain. INR on admission 5.8, was given Vit K, INR 1.66 today. Cannot start a/c unless GI bleed is ruled out. Repeat PT/INR in AM # SIRS Blood cultures/urine cultures negative so off antibiotics. No signs of infection. # MELVIN likely prerenal: from hypotension Baseline creatinine [employer] 1.1 in 02/20. Now improving. Creatinine 1.4 from 1.7 , improved with IV Hydration. 04/04: Renal ultrasound normal Avoid nephrotoxic drugs # Increased troponins demand ischemia vs NSTEMI Troponin increased 0.07--> 1.1--> 3.88--> 4.5--. 3.2 Cannot start a/c due to GI bleed,Not a candidate for a/c or antiplatelets. Cardio on board continuous cardiac monitoring. # Hypertension-was hypotensive If hypertensive, give Metoprolol 5mg Q1H PRN # Hyperkalemia now resolved # FEN Not on IVF, can tolerate PO. Electrolytes: WNL Diet advanced to sodium controlled diet. # Prophylaxis For DVT: On SCDs, hold a/c due to GI bleed For GI; Protonix 40mg BID # Code Status: Full Code # Dispo: Downgraded from ICU to Tele. Illness, investigation and Plan of care explained to the patient. He verbalized understanding. Case discussed with Dr. Garzon. Problem List - Problems (1) Acute kidney insufficiency Code(s): N28.9 - DISORDER OF KIDNEY AND URETER, UNSPECIFIED (2) Anemia Code(s): D64.9 - ANEMIA, UNSPECIFIED (3) GIB (gastrointestinal bleeding) Code(s): K92.2 - GASTROINTESTINAL HEMORRHAGE, UNSPECIFIED Qualifiers: GI bleed type/associated pathology: anorectal hemorrhage Qualified Code(s) : K62.5 - Hemorrhage of anus and rectum (4) Hyperkalemia Code(s): E87.5 - HYPERKALEMIA (5) Lactic acid acidosis Code(s): E87.2 - ACIDOSIS (6) Sepsis Code(s): A41.9 - SEPSIS, UNSPECIFIED ORGANISM (7) Supratherapeutic INR Code(s): R79.1 - ABNORMAL COAGULATION PROFILE (8) Warfarin toxicity Code(s): T45.511A - POISONING BY ANTICOAGULANTS, ACCIDENTAL, INIT Visit type - Emergency Visit Emergency Visit: Yes ED Registration Date: 04/03/18 Care time: The patient presented to the Emergency Department on the above date and was hospitalized for further evaluation of their emergent condition. - New Patient This patient is new to me today: No - Critical Care Critical Care patient: No - Discharge Referral Referred to [facility] Med P.C.: No
--- NOTE | 2018-04-06 15:08 | PN ---
Progress Note, Physician Chief Complaint: Rectal bleeding History of Present Illness: Pt seen/examined at bedside, feeling better, moving bowels, no further bleeding. Denies n/v, abdominal pain. Brown stool reported per nursing staff. - Current Medication List Current Medications: Active Medications Atorvastatin Calcium (Lipitor -) 20 mg PO HS [facility] Last Admin: 04/05/18 21:27 Dose: 20 mg Latanoprost (Xalatan 0.005% Eye Drops -) 1 drop OU [facility] Last Admin: 04/05/18 21:30 Dose: Not Given Metoprolol Tartrate (Lopressor -) 25 mg PO TID [facility] Last Admin: 04/06/18 13:33 Dose: 25 mg Pantoprazole Sodium (Protonix Iv) 40 mg IVPUSH BID [facility] Last Admin: 04/06/18 09:16 Dose: 40 mg - Objective Vital Signs: Vital Signs Temperature 97.7 F 04/06/18 14:30 Pulse Rate 60 04/06/18 14:30 Respiratory Rate 20 04/06/18 14:30 Blood Pressure 115/69 04/06/18 14:30 O2 Sat by Pulse Oximetry (%) 95 04/06/18 10:24 Constitutional: Yes: Well Nourished, No Distress, Calm Cardiovascular: Yes: WNL, Regular Rate and Rhythm Respiratory: Yes: WNL, Regular, CTA Bilaterally Gastrointestinal: Yes: WNL, Normal Bowel Sounds, Soft (Abdomen soft, nt, nd) Labs: CBC, BMP 04/06/18 06:47 04/06/18 06:47 INR, PTT INR 1.66 (0.83-1.09) H 04/06/18 06:47 Problem List - Problems (1) Rectal bleed Assessment/Plan: 87yo male h/o distant CVA (residual left sided weakness), chronic left carotid occlusion, HTN, HLD, and hemorrhoids presents with rectal bleeding in setting of supratherapeutic INR. Suspected diverticular in origin vs hemorrhiodal, no further bleeding reported. -As per prior discussions with pt as noted by Drs. Stone and Adriana, pt had been undecided about pursuing endoscopy. -Detailed discussion again taken place with pt and his (at bedside) regarding risks and benefits of endoscopy considering cardiac risk and also potential risks of missed lesions and possible re-bleeding if lesion not identified/treated once antithrombotics are resumed. -Pt and pts verbalized understanding and states he does not want to undergo endoscopic procedures. They are aware of potential missed or untreated lesions with risk of possible re-bleed. -Recommend continue to closely monitor Hb and for further evidence of bleeding -Risks and benefits of resuming antithrombotics will need to be carefully weighed and will defer to primary teams for further management on this -If further overt GI bleeding with acute drop in Hb or if pt becomes hemodynamically unstable, please obtain bleeding scan to better localize source. -Please recall GI if any questions and if pt wants to readdress or pursue endoscopic evaluation. Discussed with Dr. Gazron. Code(s): K62.5 - HEMORRHAGE OF ANUS AND RECTUM
--- NOTE | 2018-04-06 15:57 | PN ---
Teaching Attending Note Name of Resident: Alejandra Salter ATTENDING PHYSICIAN STATEMENT I saw and evaluated the patient. I reviewed the resident's note and discussed the case with the resident. I agree with the resident's findings and plan as documented with exceptions below. SUBJECTIVE: Patient seen and examined. breathing better, no complaints. Reports "normal" bowel movement yesterday. Per discussion with nursing, was dark. OBJECTIVE: Vital Signs Period Temp Pulse Resp BP Sys/Daniel Pulse Ox Last 24 Hr 97.6 F-98.1 F 60-94 18-20 105-115/57-79 95-99 Intake & Output 04/03/18 04/04/18 04/05/18 04/06/18 23:59 23:59 23:59 23:59 Intake Total 2850 470 1090 Output Total 600 100 100 Balance 2250 370 990 Weight 200 lb 250 lb 12.8 oz General: sitting in bed, mild tachypnea, able to talk in full sentences, no acute distress Neck: soft, supple, no JVD visualized CVS:S1S2 irregular Chest: distant breath sounds, good air entry, no rales or wheezing appreciated Abdomen;Soft, NT, ND, positive bowel sounds Extremities: 2+ pedal edema, no calf tenderness Home Medications Medication Instructions Recorded Atorvastatin Ca [Lipitor] 20 mg PO DAILY 04/03/18 Diltiazem [Cardizem -] 120 mg PO DAILY 04/03/18 Latanoprost/Pf [Latanoprost 0.005% 1 drop OU HS 04/03/18 Eye Drop] Sertraline HCl [Zoloft -] 50 mg PO DAILY 04/03/18 Spironolactone [Aldactone] 25 mg PO DAILY 04/03/18 Torsemide [Demadex -] 20 mg PO BID 04/03/18 Warfarin Sodium 4 mg PO HS 04/03/18 Active Medications Atorvastatin Calcium (Lipitor -) 20 mg PO HS [facility] Last Admin: 04/05/18 21:27 Dose: 20 mg Latanoprost (Xalatan 0.005% Eye Drops -) 1 drop OU [facility] Last Admin: 04/05/18 21:30 Dose: Not Given Metoprolol Tartrate (Lopressor -) 25 mg PO TID [facility] Last Admin: 04/06/18 13:33 Dose: 25 mg Pantoprazole Sodium (Protonix Iv) 40 mg IVPUSH BID [facility] Last Admin: 04/06/18 09:16 Dose: 40 mg Laboratory Results - last 24 hr 04/06/18 04/06/18 04/06/18 06:47 06:47 06:47 WBC 7.7 RBC 3.00 L Hgb 9.1 L Hct 27.8 L MCV 92.8 MCH 30.3 MCHC 32.6 RDW 16.0 H Plt Count 251 MPV 8.2 Absolute Neuts (auto) 6.5 Neutrophils % 85.2 H Lymphocytes % 6.7 L D Monocytes % 7.0 Eosinophils % 0.4 D Basophils % 0.7 Nucleated RBC % 0 PT with INR 19.70 H INR 1.66 H Sodium 144 Potassium 4.6 Chloride 114 H Carbon Dioxide 24 Anion Gap 5 L BUN 32 H Creatinine 1.4 H Creat Clearance w eGFR 48.05 Random Glucose 97 Calcium 8.1 L Phosphorus 2.6 Magnesium 2.4 Microbiology 04/04/18 13:00 Blood - Peripheral Venous Blood Culture - Preliminary NO GROWTH OBTAINED AFTER 48 HOURS, INCUBATION TO CONTINUE FOR 3 DAYS. 04/04/18 12:45 Blood - Peripheral Venous Blood Culture - Preliminary NO GROWTH OBTAINED AFTER 48 HOURS, INCUBATION TO CONTINUE FOR 3 DAYS. 04/04/18 18:15 Urine - Urine Clean Catch Urine Culture - Final NO GROWTH OBTAINED 2D echo results reviewed Telemetry results reviewed ASSESSMENT AND PLAN: 87 year old male with significant PMHx of distant CVA (residual left sided weakness), atrial fibrillation on Warfarin 4 mg qhs, chronic left carotid occlusion, HTN, HLD, and hemorrhoids presents with rectal bleeding, diarrhea like x2d, supratherapeutic INR, with hemodynamic instability (hypotension/ tachycardia) requiring ICU admission s/p 2units PRBC/1 unit FFP/vitamin K, also elevated troponin. -Acute GI bleed with hemodynamic instability (hypotension/tachycardia), diverticular vs haemorrhagic vs ischemic colitis, low suspicion for Upper GI bleed based on presentation -Supratherapeutic INR -Elevated troponin, suspect Demand type II NSTEMI from above, suspicious for underlying ischemic heart disease (EKG and 2D echo suggestive of inferolateral ischemia) -MELVIN, suspect from hypotension/GI Bleed -HYPotension from GI bleed, resolved -Hyperkalemia 6.8 on admission, resolved, suspect from MELVIN -Chronic left carotid occlusion -HTN -HLD -Haemorrhoids. Plan: s/p 2units PRBC, 1 unit FFP and 5 mg Vitamin K. H/h and hemodynamics stable. Protonix 40 mg iV BID. Cardiology/gastroenterology input noted. Patient adamantly declines endoscopy currently. Explained the risks of recurrent bleed, and inability to resume AC resulting in high risk for stroke and WA. Patient relays understanding but "does not want to talk about it further". Follow up with cardiology about AC resumption. Will need close monitoring of h/h if resumed. High risk for bleed and CVA based on comorbidities and current presentation which patient is aware of. Metoprolol for rate control. Nephrology input noted. renal function improved. dVTPPX SCDs dispo pending clinical improvement and GI/Cardiology input. Plan discussed with patient and nursing, all questions answered.
--- NOTE | 2018-04-06 19:01 | EKG ---
Test Reason : Blood Pressure : / mmHG Vent. 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
--- NOTE | 2018-04-06 19:07 | EKG ---
Test Reason : Blood Pressure : / mmHG Vent. 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
[2018-04-06 20:31] VITALS: BMI 32.3
[2018-04-06] MEDS ORDERED: PT OWN MED DRAWER 7, Y5N ONE (21:01)
[2018-04-06] MEDS: ATORVASTATIN CA 20 MG TABLET (FP) PO SCH (21:04)
[2018-04-06] MEDS: LATANOPROST 0.005% OPHTH SOLN 2.5ML BOTTLE OU SCH (22:35)
[2018-04-07] MEDS: METOPROLOL TARTRATE 25 MG TABLET (FP) PO SCH ×3 (06:02→21:04)
[2018-04-07 07:28] LABS: HEMATOCRIT 28.4 % (35.4-49); HEMOGLOBIN 9.1 GM/dL (11.7-16.9); MEAN PLT VOLUME 8.3 fl (7.5-11.1); PLATELET COUNT 247 K/MM3 (134-434); RBC 3.02 M/mm3 (4.00-5.60); RDW 16.5 % (11.9-15.9); WHITE BLOOD COUNT 6.4 K/mm3 (4.0-10.0)
[2018-04-07 07:48] LABS: INR 1.6 (0.83-1.09)
[2018-04-07 08:01] LABS: ALBUMIN 2.6 g/dl (3.4-5.0); ALK PHOS 67 U/L (45-117); ANION GAP 4 MMOL/L (8-16); BILIRUBIN,TOTAL 0.7 mg/dL (0.2-1); BLOOD UREA NITROGEN 25 mg/dL (7-18); CALCIUM 8.1 mg/dL (8.5-10.1); CHLORIDE 112 mmol/L (98-107); CO2 26 mmol/L (21-32); CREATININE 1.2 mg/dL (0.55-1.3); GLUCOSE,RANDOM 84 mg/dL (74-106); MAGNESIUM 2.5 mg/dL (1.8-2.4); PHOSPHOROUS 2.4 mg/dL (2.5-4.9); POTASSIUM 4.4 mmol/L (3.5-5.1); SGOT/AST 26 U/L (15-37); SGPT/ALT 21 U/L (13-61); SODIUM 143 mmol/L (136-145); TOT PROT 5.5 g/dl (6.4-8.2)
[2018-04-07] MEDS: PANTOPRAZOLE SODIUM 40 MG VIAL IVPUSH SCH ×2 (10:35→21:04)
--- NOTE | 2018-04-07 12:01 | PN ---
Progress Note (short form) - Note Progress Note: Chief Complaint: GIB History of Present Illness: feels better. no rectal bleeding or melena. no chest pain, palps, dizziness, lightheadedness. Current Medications Generic Name Dose Route Start Last Admin Trade Name Pat PRN Reason Stop Dose Admin Atorvastatin Calcium 20 mg 04/05/18 22:00 04/06/18 21:04 Lipitor - PO 20 mg HS SAKSHI Administration Latanoprost 1 drop 04/05/18 22:00 04/06/18 22:35 Xalatan 0.005% Eye Drops - OU Not Given HS SAKSHI Metoprolol Tartrate 25 mg 04/05/18 09:30 04/07/18 06:02 Lopressor - PO 25 mg TID SAKSHI Administration Pantoprazole Sodium 40 mg 04/05/18 10:00 04/07/18 10:35 Protonix Iv IVPUSH 40 mg BID SAKSHI Administration Vital Signs Period Temp Pulse Resp BP Sys/Daniel Pulse Ox Last 24 Hr 97.5 F-98.3 F 60-86 18-20 102-116/51-69 99 Constitutional: Yes: No Distress, Calm Eyes: No: Sclera Icterus HENT: No: Nasal Congestion Cardiovascular: Yes: Pulse Irregular, S1, S2, Other (PMI non diplaced). No: Gallop, Murmur Respiratory: Yes: CTA Bilaterally. No: Accessory Muscle Use, Rales, Wheezes Gastrointestinal: Yes: Normal Bowel Sounds, Soft. No: Tenderness Extremities: No: Cyanosis Edema: No Integumentary: No: Jaundice Neurological: Yes: Alert, Oriented (x3) Psychiatric: No: Agitated CBC, BMP 04/07/18 06:30 04/07/18 06:30 EKG 04/03 (19:17): poor baseline, prob fib/flutter. HR 106. 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 nonsp ST-Ts I/avL EKG 04/04: afib, more pronounced STs lateral leads ECG 04/05: afib, no change vs 04/04 CXR: clear lungs/pleura Echo 03/22: nl LV size. mild decr EF (45-50%). RWMA tds. inferolateral wall appears mildly HK. nl RV. mild TR. PASP at least 49. tele: afib, rate controlled a/p: LGIB, preop CV eval for FOC and/or EGD: -per GI -INR was high, warfarin reversed (vit K 5mg)--INR coming down -pt at increased risk for lawrence-procedural ischemic complications given myocardial injury with hi troponin: while this is secondary (i.e. demand ischemia), his underlying coronary anatomy/ischemic burden is unknown, and Type II NE still confers adverse prognostic value. 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 He requires AC due to prior CVA history with high risk of cardioembolic stroke (CHADS VASC = 5-6, i.e. risk of stroke is 6.5-10%/year), therefore cannot safely defer GI scopes for definitive tx of underlying bleeding culprit. his risk of stroke if he is maintained off AC is statistically signif higher than his lawrence-procedural CV risk (vijay if one factors in > 1 year of being off AC). he is medically optimized (continue bb, statin as doing) to the extent possible and he has had no s/sx of CHF or angina, with preserved LVEF. no further testing or CV optimization indicated prior to procedures-->patient is refusing GI work up. Afib: -rapid HR initially due to active bleeding with hypotension, improving with improved hemodynamics -low BP limits AVN blocking med options. low GFR risk for digoxin -tolerating moderate dose lopressor with soft but stable bp's, HRs reasonable-- stable on tele, continue same dose -h/o CVA -on warfarin at home--being held for LGIB with hemodynamic consequences. Pt refusing GI w/u. No further melena/rectal bleeding and hgb stable. INR was close to 6 on admit so possibly provoked GIB. Can resume ac with closer INR and hgb monitoring if pt is willing to accept risk of re-bleeding. NSTEMI: -trop peaked 4.5, now downtrending -likely secondary to acute hypotension/tachy, i.e. deman ischemia/Type II NE -ECG's stable -echo with mild decr EF, ? regional per report (TDS regional wall motion) -not a candidate for anti-PLTs, AC or invasive interventions regardless given his GIB of unknown source and pt refusing GI eval. -cont BB, HR control as doing. statin. -remains asymptomatic -should have risk-stratification with pharm MPI once acute issues resolve, however pt is currently refusing cardiac or GI w/u. MELVIN: -baseline creat 1.1 in 02/20 -initial creat 2.4, coming down with IVF pulm HTN: -at least mild-mod pulm HTN on echo here, possibly high left sided filling pressures due to acute ischemia/rapid AF -outpt f/u HTN: -stable HPL, h/o carotid dz: -resume home atorva
--- NOTE | 2018-04-07 14:32 | PN ---
Progress Note, Physician History of Present Illness: Pt seen and examined at bedside. He is awake and alert. He is tolerating diet. He denies shortness of breath. - Current Medication List Current Medications: Active Medications Atorvastatin Calcium (Lipitor -) 20 mg PO HS [facility] Last Admin: 04/06/18 21:04 Dose: 20 mg Latanoprost (Xalatan 0.005% Eye Drops -) 1 drop OU HS [facility] Last Admin: 04/06/18 22:35 Dose: Not Given Metoprolol Tartrate (Lopressor -) 25 mg PO TID [facility] Last Admin: 04/07/18 13:40 Dose: 25 mg Pantoprazole Sodium (Protonix Iv) 40 mg IVPUSH BID [facility] Last Admin: 04/07/18 10:35 Dose: 40 mg - Objective Vital Signs: Vital Signs Temperature 98.6 F 04/07/18 14:18 Pulse Rate 86 04/07/18 14:18 Respiratory Rate 20 04/07/18 14:18 Blood Pressure 125/64 04/07/18 14:18 O2 Sat by Pulse Oximetry (%) 99 04/06/18 19:58 Constitutional: Yes: Calm Eyes: Yes: Conjunctiva Clear HENT: Yes: Atraumatic Cardiovascular: Yes: S1, S2 Respiratory: Yes: On Nasal O2 Gastrointestinal: Yes: Normal Bowel Sounds, Soft Genitourinary: Yes: WNL Musculoskeletal: Yes: WNL Edema: No Neurological: Yes: Oriented Psychiatric: Yes: Oriented Labs: CBC, BMP 04/07/18 06:30 04/07/18 06:30 INR, PTT INR 1.60 (0.83-1.09) H 04/07/18 06:30 Assessment/Plan Current Medications Generic Name Dose Route Start Last Admin Trade Name Freq PRN Reason Stop Dose Admin Atorvastatin Calcium 20 mg 04/05/18 22:00 04/06/18 21:04 Lipitor - PO 20 mg HS [facility] Administration Latanoprost 1 drop 04/05/18 22:00 04/06/18 22:35 Xalatan 0.005% Eye Drops - OU Not Given HS [facility] Metoprolol Tartrate 25 mg 04/05/18 09:30 04/07/18 13:40 Lopressor - PO 25 mg TID [facility] Administration Pantoprazole Sodium 40 mg 04/05/18 10:00 01/03/19 10:35 Protonix Iv IVPUSH 40 mg BID [facility] Administration Impression 1. MELVIN 2. anemia 3. gi bleed 4. hypotension 5. HLD 6. hx cva 7. lactic acidosis 8. hyperkalemia Plan - renal function stable - pt off of fluids - encourage PO intake - repeat labs in am - melvin likely from atn secondary to prolonges prerenal disease from blood loss - monitor hg Dr Smith
--- NOTE | 2018-04-07 15:33 | PN ---
Progress Note, Physician History of Present Illness: stable doing well no new issues no further bleeding - Current Medication List Current Medications: Active Medications Atorvastatin Calcium (Lipitor -) 20 mg PO [facility] Last Admin: 04/06/18 21:04 Dose: 20 mg Latanoprost (Xalatan 0.005% Eye Drops -) 1 drop OU [facility] Last Admin: 04/06/18 22:35 Dose: Not Given Metoprolol Tartrate (Lopressor -) 25 mg PO TID [facility] Last Admin: 04/07/18 13:40 Dose: 25 mg Pantoprazole Sodium (Protonix Iv) 40 mg IVPUSH BID [facility] Last Admin: 04/07/18 10:35 Dose: 40 mg - Objective Vital Signs: Vital Signs Temperature 98.6 F 04/07/18 14:18 Pulse Rate 86 04/07/18 14:18 Respiratory Rate 20 04/07/18 14:18 Blood Pressure 125/64 04/07/18 14:18 O2 Sat by Pulse Oximetry (%) 99 04/07/18 09:00 Constitutional: Yes: No Distress, Calm Cardiovascular: Yes: Pulse Irregular Respiratory: Yes: Regular, CTA Bilaterally Gastrointestinal: Yes: Normal Bowel Sounds, Soft Musculoskeletal: Yes: WNL Extremities: Yes: WNL Neurological: Yes: Alert Psychiatric: Yes: Alert, Oriented Labs: CBC, BMP 04/07/18 06:30 04/07/18 06:30 INR, PTT INR 1.60 (0.83-1.09) H 04/07/18 06:30 Assessment/Plan Problem List - Problems (1) GIB (gastrointestinal bleeding) Code(s): K92.2 - GASTROINTESTINAL HEMORRHAGE, UNSPECIFIED Qualifiers: GI bleed type/associated pathology: anorectal hemorrhage Qualified Code(s) : K62.5 - Hemorrhage of anus and rectum (2) Sepsis Code(s): A41.9 - SEPSIS, UNSPECIFIED ORGANISM (3) Lactic acid acidosis Code(s): E87.2 - ACIDOSIS (4) Warfarin toxicity Code(s): T45.511A - POISONING BY ANTICOAGULANTS, ACCIDENTAL, INIT (5) NSTEMI (non-ST elevated myocardial infarction) Code(s): I21.4 - NON-ST ELEVATION (NSTEMI) MYOCARDIAL INFARCTION (6) Acute kidney insufficiency Code(s): N28.9 - DISORDER OF KIDNEY AND URETER, UNSPECIFIED (7) Anemia Code(s): D64.9 - ANEMIA, UNSPECIFIED plan continue current mgmt monitor of of abx monitor h and inr rest as per the team
--- NOTE | 2018-04-07 15:43 | PN ---
Teaching Attending Note Name of Resident: Alejandra Salter ATTENDING PHYSICIAN STATEMENT I saw and evaluated the patient. I reviewed the resident's note and discussed the case with the resident. I agree with the resident's findings and plan as documented with exceptions belo. SUBJECTIVE: Patient seen and examined. breathing improved, no new complaints, no dark or bloody stools. OBJECTIVE: Vital Signs Period Temp Pulse Resp BP Sys/Daniel Pulse Ox Last 24 Hr 97.5 F-98.6 F 79-86 18-20 102-125/51-65 99-99 Intake & Output 04/04/18 04/05/18 04/06/18 04/07/18 23:59 23:59 23:59 23:59 Intake Total 2850 470 1090 Output Total 600 100 200 150 Balance 2250 370 890 -150 Weight 250 lb 12.8 oz 200 lb General: sitting in bed in no acute distress Chest: improved basilar rales, improved air entry Abdomen: soft, NT, ND, positive bowel sounds Extremities: trace pedal edema Home Medications Medication Instructions Recorded Atorvastatin Ca [Lipitor] 20 mg PO DAILY 04/03/18 Diltiazem [Cardizem -] 120 mg PO DAILY 04/03/18 Latanoprost/Pf [Latanoprost 0.005% 1 drop OU HS 04/03/18 Eye Drop] Sertraline HCl [Zoloft -] 50 mg PO DAILY 04/03/18 Spironolactone [Aldactone] 25 mg PO DAILY 04/03/18 Torsemide [Demadex -] 20 mg PO BID 04/03/18 Warfarin Sodium 4 mg PO HS 04/03/18 Active Medications Atorvastatin Calcium (Lipitor -) 20 mg PO HS [facility] Last Admin: 04/06/18 21:04 Dose: 20 mg Latanoprost (Xalatan 0.005% Eye Drops -) 1 drop OU HS [facility] Last Admin: 04/06/18 22:35 Dose: Not Given Metoprolol Tartrate (Lopressor -) 25 mg PO TID [facility] Last Admin: 04/07/18 13:40 Dose: 25 mg Pantoprazole Sodium (Protonix Iv) 40 mg IVPUSH BID [facility] Last Admin: 04/07/18 10:35 Dose: 40 mg Abnormal Lab Results 04/03/18 04/07/18 04/07/18 20:30 06:30 06:30 RBC 3.02 L Hgb 9.1 L Hct 28.4 L RDW 16.5 H PT with INR 19.00 H INR 1.60 H Chloride Anion Gap BUN Calcium Phosphorus Magnesium Total Protein Albumin Crossmatch See Detail 04/07/18 06:30 RBC Hgb Hct RDW PT with INR INR Chloride 112 H Anion Gap 4 L BUN 25 H Calcium 8.1 L Phosphorus 2.4 L Magnesium 2.5 H Total Protein 5.5 L Albumin 2.6 L Crossmatch Microbiology 04/04/18 13:00 Blood - Peripheral Venous Blood Culture - Preliminary NO GROWTH OBTAINED AFTER 72 HOURS, INCUBATION TO CONTINUE FOR 2 DAYS. 04/04/18 12:45 Blood - Peripheral Venous Blood Culture - Preliminary NO GROWTH OBTAINED AFTER 72 HOURS, INCUBATION TO CONTINUE FOR 2 DAYS. 04/04/18 18:15 Urine - Urine Clean Catch Urine Culture - Final NO GROWTH OBTAINED ASSESSMENT AND PLAN: 87 year old male with significant PMHx of distant CVA (residual left sided weakness), atrial fibrillation on Warfarin 4 mg qhs, chronic left carotid occlusion, HTN, HLD, and hemorrhoids presents with rectal bleeding, diarrhea like x2d, supratherapeutic INR, with hemodynamic instability (hypotension/ tachycardia) requiring ICU admission s/p 2units PRBC/1 unit FFP/vitamin K, also elevated troponin. -Acute GI bleed with hemodynamic instability (hypotension/tachycardia), diverticular vs haemorrhagic vs ischemic colitis, low suspicion for Upper GI bleed based on presentation -Supratherapeutic INR -Elevated troponin, suspect Demand type II NSTEMI from above, suspicious for underlying ischemic heart disease (EKG and 2D echo suggestive of inferolateral ischemia) -MELVIN, suspect from hypotension/GI Bleed -HYPotension from GI bleed, resolved -Hyperkalemia 6.8 on admission, resolved, suspect from MELVIN -Chronic left carotid occlusion -HTN -HLD -Haemorrhoids. Plan: s/p 2units PRBC, 1 unit FFP and 5 mg Vitamin K. H/h and hemodynamics stable. Protonix 40 mg iV BID,change to PO. No further dark or bloody stools. Cardiology/gastroenterology input noted. Patient adamantly declines endoscopy currently. Explained the risks of recurrent bleed, and inability to resume AC resulting in high risk for stroke and VT. Patient relays understanding but "does not want to talk about it further". Cardiology input noted. Will discuss with patient/ about resuming AC understanding risks of re-bleed. Discuss with Dr. Rizo to help co-ordinate care. Will need close monitoring of h/h if resumed. High risk for bleed and CVA based on comorbidities and current presentation which patient is aware of. Metoprolol for rate control. Nephrology input noted. renal function improved. DVTPPX SCDs dispo pending clinical improvement and GI/Cardiology input. Plan discussed with patient and nursing, all questions answered.
--- NOTE | 2018-04-07 15:56 | PN ---
Progress Note, Physician - Current Medication List Current Medications: Active Medications Atorvastatin Calcium (Lipitor -) 20 mg PO HS [facility] Last Admin: 04/06/18 21:04 Dose: 20 mg Latanoprost (Xalatan 0.005% Eye Drops -) 1 drop OU [facility] Last Admin: 04/06/18 22:35 Dose: Not Given Metoprolol Tartrate (Lopressor -) 25 mg PO TID [facility] Last Admin: 04/07/18 13:40 Dose: 25 mg Pantoprazole Sodium (Protonix Iv) 40 mg IVPUSH BID [facility] Last Admin: 04/07/18 10:35 Dose: 40 mg - Objective Vital Signs: Vital Signs Temperature 98.6 F 04/07/18 14:18 Pulse Rate 86 04/07/18 14:18 Respiratory Rate 20 04/07/18 14:18 Blood Pressure 125/64 04/07/18 14:18 O2 Sat by Pulse Oximetry (%) 99 04/07/18 09:00 Labs: CBC, BMP 04/07/18 06:30 04/07/18 06:30 INR, PTT INR 1.60 (0.83-1.09) H 04/07/18 06:30
--- NOTE | 2018-04-07 16:13 | PN ---
Physical Exam: SUBJECTIVE: Patient seen and examined at bed side this morning. Very upset and says doesn't want to talk about Endoscopy/colonoscopy. No acute overnight events. OBJECTIVE: Vital Signs Period Temp Pulse Resp BP Sys/Daniel Pulse Ox Last 24 Hr 97.5 F-98.6 F 79-86 18-20 102-125/51-65 99-99 GENERAL: Elderly male, sitting in bed comfortably, is awake, alert, and fully oriented, in no acute distress. HEAD: Normal with no signs of trauma. EYES: EOM intact, pallor +, no icterus. ENT: Ears normal, dry mucous membranes. NECK: Supple. LUNGS: Breath sounds equal, Crackles on the Left lung base, right lung clear. HEART: Regular rate and rhythm, S1, S2 without murmur. ABDOMEN: Soft, nontender, no organomegaly, BS +. EXTREMITIES: 2+ pulses, warm, well-perfused, no edema. NEUROLOGICAL: No facial droop, Normal speech, gait not observed. PSYCH: Normal mood, normal affect. SKIN: Warm, dry, normal turgor, no rashes or lesions noted Laboratory Results - last 24 hr 04/03/18 04/07/18 04/07/18 20:30 06:30 06:30 WBC 6.4 RBC 3.02 L Hgb 9.1 L Hct 28.4 L MCV 94.0 MCH 30.0 MCHC 32.0 RDW 16.5 H Plt Count 247 MPV 8.3 PT with INR 19.00 H INR 1.60 H Sodium Potassium Chloride Carbon Dioxide Anion Gap BUN Creatinine Creat Clearance w eGFR Random Glucose Calcium Phosphorus Magnesium Total Bilirubin AST ALT Alkaline Phosphatase Total Protein Albumin Blood Type O POSITIVE Antibody Screen Negative Crossmatch See Detail 04/07/18 06:30 WBC RBC Hgb Hct MCV MCH MCHC RDW Plt Count MPV PT with INR INR Sodium 143 Potassium 4.4 Chloride 112 H Carbon Dioxide 26 Anion Gap 4 L BUN 25 H Creatinine 1.2 Creat Clearance w eGFR 57.41 Random Glucose 84 Calcium 8.1 L Phosphorus 2.4 L Magnesium 2.5 H Total Bilirubin 0.7 AST 26 ALT 21 Alkaline Phosphatase 67 Total Protein 5.5 L Albumin 2.6 L Blood Type Antibody Screen Crossmatch Active Medications Generic Name Dose Route Start Last Admin Trade Name Freq PRN Reason Stop Dose Admin Atorvastatin Calcium 20 mg 04/05/18 22:00 04/06/18 21:04 Lipitor - PO 20 mg HS SAKSHI Administration Latanoprost 1 drop 04/05/18 22:00 04/06/18 22:35 Xalatan 0.005% Eye Drops - OU Not Given HS SAKSHI Metoprolol Tartrate 25 mg 04/05/18 09:30 04/07/18 13:40 Lopressor - PO 25 mg TID SAKSHI Administration Pantoprazole Sodium 40 mg 04/05/18 10:00 04/07/18 10:35 Protonix Iv IVPUSH 40 mg BID SAKSHI Administration 04/04: Renal ultrasound normal ASSESSMENT/PLAN: Patient is an 87 year old male with significant PMHx of distant CVA (residual left sided weakness) on Warfarin 4 mg qhs, chronic left carotid occlusion, HTN, HLD, and hemorrhoids presents with rectal bleeding, diarrhea like x2d. # Acute GI bleed-now resolved Patient refusing Colonoscopy/ENdoscopy. Important to r/o GI bleed to start on a/c for CVA (pt is high risk) Spoke with Dr. Rizo over the phone who will speak with the patient and explain the importance of the GI procedure. Currently off A/c # Supratherapeutic INR now subtherapeutic INR. Patient on Coumdain. INR on admission 5.8, was given Vit K, INR 1.6 today. Cannot start a/c unless GI bleed is ruled out. Repeat PT/INR in AM # SIRS Blood cultures/urine cultures negative so off antibiotics. No signs of infection. # MELVIN likely prerenal: from hypotension- resolved # Increased troponins demand ischemia vs NSTEMI-trops downtrending. Troponin increased 0.07--> 1.1--> 3.88--> 4.5--. 3.2 Cannot start a/c due to GI bleed,Not a candidate for a/c or antiplatelets. Cardio on board continuous cardiac monitoring. # Hyperlipidemia Continue Statin 20mg HS # Hypertension-was hypotensive Continue Metoprolol 25mg TID. # Hyperkalemia now resolved # FEN Not on IVF, can tolerate PO. Electrolytes: Phosphorus marginally low, will repeat in AM and replete if needed. Diet advanced to sodium controlled diet. # Prophylaxis For DVT: On SCDs, hold a/c due to GI bleed For GI; Protonix 40mg BID # Code Status: Full Code # Dispo: Continue to monitor in Tele. Illness, investigation and Plan of care explained to the patient. He verbalized understanding. Case discussed with Dr. Garzon and Dr. Rizo. Problem List - Problems (1) Acute kidney insufficiency Code(s): N28.9 - DISORDER OF KIDNEY AND URETER, UNSPECIFIED (2) Anemia Code(s): D64.9 - ANEMIA, UNSPECIFIED (3) GIB (gastrointestinal bleeding) Code(s): K92.2 - GASTROINTESTINAL HEMORRHAGE, UNSPECIFIED Qualifiers: GI bleed type/associated pathology: anorectal hemorrhage Qualified Code(s) : K62.5 - Hemorrhage of anus and rectum (4) Hyperkalemia Code(s): E87.5 - HYPERKALEMIA (5) Lactic acid acidosis Code(s): E87.2 - ACIDOSIS (6) Sepsis Code(s): A41.9 - SEPSIS, UNSPECIFIED ORGANISM (7) Supratherapeutic INR Code(s): R79.1 - ABNORMAL COAGULATION PROFILE (8) Warfarin toxicity Code(s): T45.511A - POISONING BY ANTICOAGULANTS, ACCIDENTAL, INIT Visit type - Emergency Visit Emergency Visit: Yes ED Registration Date: 04/03/18 Care time: The patient presented to the Emergency Department on the above date and was hospitalized for further evaluation of their emergent condition. - New Patient This patient is new to me today: No - Critical Care Critical Care patient: No - Discharge Referral Referred to [facility] Med P.C.: No
--- NOTE | 2018-04-07 16:15 | EKG ---
Test Reason : Blood Pressure : / mmHG Vent. Rate : 083 BPM Atrial Rate : 087 BPM P-R Int : 000 ms QRS Dur : 100 ms QT Int : 376 ms P-R-T Axes : 000 008 145 degrees QTc Int : 441 ms ATRIAL FIBRILLATION INFERIOR INFARCT (CITED ON OR BEFORE 01-JUN-1998) ABNORMAL ECG WHEN COMPARED WITH ECG OF 05-APR-2018 09:27, NO SIGNIFICANT CHANGE WAS FOUND Confirmed by LEO ZARATE, COLT ([id number]) on 04/07/2018 4:14:55 PM Referred By: CYNTHIA LOWERY Confirmed By:COLT BAILEY MD
[2018-04-07] MEDS ORDERED: PT OWN MED DRAWER 7, Y5N ONE (20:48)
[2018-04-07] MEDS: ATORVASTATIN CA 20 MG TABLET (FP) PO SCH (21:04)
[2018-04-07] MEDS: LATANOPROST 0.005% OPHTH SOLN 2.5ML BOTTLE OU SCH (22:47)
[2018-04-08] MEDS: METOPROLOL TARTRATE 25 MG TABLET (FP) PO SCH ×3 (05:38→21:10)
[2018-04-08 07:13] LABS: HEMATOCRIT 30.1 % (35.4-49); HEMOGLOBIN 9.7 GM/dL (11.7-16.9); MCH 30.1 pg (25.7-33.7); MEAN CELL VOLUME 93.8 fl (80-96); MEAN PLT VOLUME 8.3 fl (7.5-11.1); PLATELET COUNT 246 K/MM3 (134-434); RBC 3.21 M/mm3 (4.00-5.60); RDW 16.6 % (11.9-15.9); WHITE BLOOD COUNT 5.8 K/mm3 (4.0-10.0)
[2018-04-08 07:25] LABS: INR 1.49 (0.83-1.09); PROTHROMBIN TIME (PATIENT) 17.7 SEC (9.7-13.0)
[2018-04-08 07:34] LABS: ANION GAP 2 MMOL/L (8-16); BLOOD UREA NITROGEN 21 mg/dL (7-18); CALCIUM 7.8 mg/dL (8.5-10.1); CHLORIDE 109 mmol/L (98-107); CO2 29 mmol/L (21-32); CREATININE 1.2 mg/dL (0.55-1.3); GLUCOSE,RANDOM 99 mg/dL (74-106); MAGNESIUM 2.4 mg/dL (1.8-2.4); PHOSPHOROUS 2.1 mg/dL (2.5-4.9); POTASSIUM 4.4 mmol/L (3.5-5.1); SODIUM 140 mmol/L (136-145)
--- NOTE | 2018-04-08 09:36 | PN ---
Teaching Attending Note Name of Resident: Alejandra Salter ATTENDING PHYSICIAN STATEMENT I saw and evaluated the patient. I reviewed the resident's note and discussed the case with the resident. I agree with the resident's findings and plan as documented with exceptions below. SUBJECTIVE: Patient seen and examined. breathing improved, no dark or bloody stools or abdominal pain. Tolerating diet well. OBJECTIVE: Vital Signs Period Temp Pulse Resp BP Sys/Daniel Pulse Ox Last 24 Hr 97.5 F-98.6 F 78-86 18-20 106-125/57-68 100 Intake & Output 04/05/18 04/06/18 04/07/18 04/08/18 23:59 23:59 23:59 23:59 Intake Total 470 1090 140 Output Total 100 200 500 100 Balance 370 890 -360 -100 Weight 200 lb General: sitting in bed in no acute distress Chest: distant breath sounds, positive air entry, no rales or wheezing appreciated Abdomen;Soft, NT throughout, ND Extremities: SCDs in place, trace pedal edema Home Medications Medication Instructions Recorded Atorvastatin Ca [Lipitor] 20 mg PO DAILY 04/03/18 Diltiazem [Cardizem -] 120 mg PO DAILY 04/03/18 Latanoprost/Pf [Latanoprost 0.005% 1 drop OU HS 04/03/18 Eye Drop] Sertraline HCl [Zoloft -] 50 mg PO DAILY 04/03/18 Spironolactone [Aldactone] 25 mg PO DAILY 04/03/18 Torsemide [Demadex -] 20 mg PO BID 04/03/18 Warfarin Sodium 4 mg PO HS 04/03/18 Active Medications Atorvastatin Calcium (Lipitor -) 20 mg PO HS [facility] Last Admin: 04/07/18 21:04 Dose: 20 mg Latanoprost (Xalatan 0.005% Eye Drops -) 1 drop OU HS [facility] Last Admin: 04/07/18 22:47 Dose: 1 drop Metoprolol Tartrate (Lopressor -) 25 mg PO TID [facility] Last Admin: 04/08/18 05:38 Dose: 25 mg Pantoprazole Sodium (Protonix Iv) 40 mg IVPUSH BID [facility] Last Admin: 04/07/18 21:04 Dose: 40 mg Laboratory Results - last 24 hr 04/08/18 04/08/18 04/08/18 06:30 06:30 06:30 WBC 5.8 RBC 3.21 L Hgb 9.7 L Hct 30.1 L MCV 93.8 MCH 30.1 MCHC 32.0 RDW 16.6 H Plt Count 246 MPV 8.3 PT with INR 17.70 H INR 1.49 H Sodium 140 Potassium 4.4 Chloride 109 H Carbon Dioxide 29 Anion Gap 2 L BUN 21 H Creatinine 1.2 Creat Clearance w eGFR 57.41 Random Glucose 99 Calcium 7.8 L Phosphorus 2.1 L Magnesium 2.4 Microbiology 04/04/18 13:00 Blood - Peripheral Venous Blood Culture - Preliminary NO GROWTH OBTAINED AFTER 72 HOURS, INCUBATION TO CONTINUE FOR 2 DAYS. 04/04/18 12:45 Blood - Peripheral Venous Blood Culture - Preliminary NO GROWTH OBTAINED AFTER 72 HOURS, INCUBATION TO CONTINUE FOR 2 DAYS. 04/04/18 18:15 Urine - Urine Clean Catch Urine Culture - Final NO GROWTH OBTAINED ASSESSMENT AND PLAN: 87 year old male with significant PMHx of distant CVA (residual left sided weakness), atrial fibrillation on Warfarin 4 mg qhs, chronic left carotid occlusion, HTN, HLD, and hemorrhoids presents with rectal bleeding, diarrhea like x2d, supratherapeutic INR, with hemodynamic instability (hypotension/ tachycardia) requiring ICU admission s/p 2units PRBC/1 unit FFP/vitamin K, also elevated troponin. -Acute GI bleed with hemodynamic instability (hypotension/tachycardia), diverticular vs haemorrhagic vs ischemic colitis, low suspicion for Upper GI bleed based on presentation -Supratherapeutic INR -Elevated troponin, suspect Demand type II NSTEMI from above, suspicious for underlying ischemic heart disease (EKG and 2D echo suggestive of inferolateral ischemia) -MELVIN, suspect from hypotension/GI Bleed -HYPotension from GI bleed, resolved -Hyperkalemia 6.8 on admission, resolved, suspect from MELVIN -Chronic left carotid occlusion -HTN -HLD -Haemorrhoids. Plan: s/p 2units PRBC, 1 unit FFP and 5 mg Vitamin K. H/h and hemodynamics stable. Protonix 40 mg iV BID,change to PO. No further dark or bloody stools. Cardiology/gastroenterology input noted. Patient adamantly declines endoscopy, multiple discussions by multiple providers. Cardiology input noted. h/h and hemodynamics stable, no further evidence of bleed, Attempted to discuss with patient about resuming AC understanding re- bleeding risk. Patient again states "do not talk to me". Dr. Rizo informed, to discuss with and patient, will resume AC inhouse if patient and relay understanding of rebleeding risk. Metoprolol for rate control. Nephrology input noted. renal function improved. Spironolactone held given hyperkalemia/MELVIN on admission. Resume sertraline. PT eval and dispo planning. DVTPPX SCDs dispo pending clinical improvement and GI/Cardiology input. Plan discussed with patient and nursing, all questions answered.
[2018-04-08] MEDS ORDERED: PT OWN MED DRAWER 7, Y5N ONE (09:42)
[2018-04-08] MEDS ORDERED: NAPH,MB-DB/K PH,MBDB POWDER PACKET PO ONE (09:51)
[2018-04-08] MEDS: SERTRALINE HCL 50 MG TABLET (FP) PO SCH (09:59)
[2018-04-08] MEDS: PANTOPRAZOLE 40 MG TABLET (FP) PO SCH ×2 (09:59→21:10)
--- NOTE | 2018-04-08 10:10 | PN ---
Progress Note (short form) - Note Progress Note: Chief Complaint: GIB History of Present Illness: feels better. no rectal bleeding or melena. no chest pain, palps, dizziness, lightheadedness. Current Medications Generic Name Dose Route Start Last Admin Trade Name Pat PRN Reason Stop Dose Admin Atorvastatin Calcium 20 mg 04/05/18 22:00 04/07/18 21:04 Lipitor - PO 20 mg HS SAKSHI Administration Latanoprost 1 drop 04/05/18 22:00 04/07/18 22:47 Xalatan 0.005% Eye Drops - OU 1 drop HS SAKSHI Administration Metoprolol Tartrate 25 mg 04/05/18 09:30 04/08/18 05:38 Lopressor - PO 25 mg TID SAKSHI Administration Pantoprazole Sodium 40 mg 04/08/18 10:00 04/08/18 09:59 Protonix - PO 40 mg BID SAKSHI Administration Potassium Phos/Sodium Phos 1 packet 04/08/18 09:51 Phos-Nak Packet - PO 04/08/18 09:52 ONCE ONE Sertraline HCl 50 mg 04/08/18 10:00 04/08/18 09:59 Zoloft - PO 50 mg DAILY SAKSHI Administration Vital Signs Period Temp Pulse Resp BP Sys/Daniel Pulse Ox Last 24 Hr 97.5 F-98.6 F 78-86 18-20 106-125/64-68 99-100 Constitutional: Yes: No Distress, Calm Eyes: No: Sclera Icterus HENT: No: Nasal Congestion Cardiovascular: Yes: Pulse Irregular, S1, S2, Other (PMI non diplaced). No: Gallop, Murmur Respiratory: Yes: CTA Bilaterally. No: Accessory Muscle Use, Rales, Wheezes Gastrointestinal: Yes: Normal Bowel Sounds, Soft. No: Tenderness Extremities: No: Cyanosis Edema: No Integumentary: No: Jaundice Neurological: Yes: Alert, Oriented (x3) Psychiatric: No: Agitated CBC, BMP 04/08/18 06:30 04/08/18 06:30 EKG 04/03 (19:17): poor baseline, prob fib/flutter. HR 106. 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 nonsp ST-Ts I/avL EKG 04/04: afib, more pronounced STs lateral leads ECG 1/1: afib, no change vs 04/04 CXR: clear lungs/pleura Echo 03/22: nl LV size. mild decr EF (45-50%). RWMA tds. inferolateral wall appears mildly HK. nl RV. mild TR. PASP at least 49. tele: afib, rate controlled a/p: LGIB, preop CV eval for FOC and/or EGD: -per GI -INR was high, warfarin reversed (vit K 5mg)--INR coming down -pt at increased risk for lawrence-procedural ischemic complications given myocardial injury with hi troponin: while this is secondary (i.e. demand ischemia), his underlying coronary anatomy/ischemic burden is unknown, and Type II CO still confers adverse prognostic value. 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 He requires AC due to prior CVA history with high risk of cardioembolic stroke (CHADS VASC = 5-6, i.e. risk of stroke is 6.5-10%/year), therefore cannot safely defer GI scopes for definitive tx of underlying bleeding culprit. his risk of stroke if he is maintained off AC is statistically signif higher than his lawrence-procedural CV risk (vijay if one factors in > 1 year of being off AC). he is medically optimized (continue bb, statin as doing) to the extent possible and he has had no s/sx of CHF or angina, with preserved LVEF. no further testing or CV optimization indicated prior to procedures-->patient is refusing GI work up. Afib: -rapid HR initially due to active bleeding with hypotension, improving with improved hemodynamics -low BP limits AVN blocking med options. low GFR risk for digoxin -tolerating moderate dose lopressor with soft but stable bp's, HRs reasonable-- stable on tele, continue same dose -h/o CVA -on warfarin at home--being held for LGIB with hemodynamic consequences. Pt refusing GI w/u. No further melena/rectal bleeding and hgb stable. INR was close to 6 on admit so possibly provoked GIB. Can resume ac with closer INR and hgb monitoring if pt is willing to accept risk of re-bleeding. NSTEMI: -trop peaked 4.5, now downtrending -likely secondary to acute hypotension/tachy, i.e. deman ischemia/Type II CO -ECG's stable -echo with mild decr EF, ? regional per report (TDS regional wall motion) -not a candidate for anti-PLTs, AC or invasive interventions regardless given his GIB of unknown source and pt refusing GI eval. -cont BB, HR control as doing. statin. -remains asymptomatic -should have risk-stratification with pharm MPI once acute issues resolve, however pt is currently refusing cardiac or GI w/u. MELVIN: -baseline creat 1.1 in 02/20 -initial creat 2.4, coming down with IVF pulm HTN: -at least mild-mod pulm HTN on echo here, possibly high left sided filling pressures due to acute ischemia/rapid AF -outpt f/u HTN: -stable HPL, h/o carotid dz: -resume home atorva
--- NOTE | 2018-04-08 12:45 | PN ---
Progress Note, Physician History of Present Illness: stable no new issues no bleeding - Current Medication List Current Medications: Active Medications Atorvastatin Calcium (Lipitor -) 20 mg PO HS [facility] Last Admin: 04/07/18 21:04 Dose: 20 mg Latanoprost (Xalatan 0.005% Eye Drops -) 1 drop OU HS [facility] Last Admin: 04/07/18 22:47 Dose: 1 drop Metoprolol Tartrate (Lopressor -) 25 mg PO TID [facility] Last Admin: 04/08/18 05:38 Dose: 25 mg Pantoprazole Sodium (Protonix -) 40 mg PO BID [facility] Last Admin: 04/08/18 09:59 Dose: 40 mg Sertraline HCl (Zoloft -) 50 mg PO DAILY [facility] Last Admin: 04/08/18 09:59 Dose: 50 mg - Objective Vital Signs: Vital Signs Temperature 97.8 F 04/08/18 10:00 Pulse Rate 83 04/08/18 10:00 Respiratory Rate 20 04/08/18 10:00 Blood Pressure 104/60 04/08/18 10:00 O2 Sat by Pulse Oximetry (%) 99 04/08/18 09:00 Constitutional: Yes: No Distress, Calm Cardiovascular: Yes: Regular Rate and Rhythm Respiratory: Yes: Regular, CTA Bilaterally Gastrointestinal: Yes: Normal Bowel Sounds, Soft Musculoskeletal: Yes: WNL Extremities: Yes: WNL Neurological: Yes: Alert, Oriented Psychiatric: Yes: Alert, Oriented Labs: CBC, BMP 04/08/18 06:30 04/08/18 06:30 INR, PTT INR 1.49 (0.83-1.09) H 04/08/18 06:30 Assessment/Plan Problem List - Problems (1) GIB (gastrointestinal bleeding) Code(s): K92.2 - GASTROINTESTINAL HEMORRHAGE, UNSPECIFIED Qualifiers: GI bleed type/associated pathology: anorectal hemorrhage Qualified Code(s) : K62.5 - Hemorrhage of anus and rectum (2) Sepsis Code(s): A41.9 - SEPSIS, UNSPECIFIED ORGANISM (3) Lactic acid acidosis Code(s): E87.2 - ACIDOSIS (4) Warfarin toxicity Code(s): T45.511A - POISONING BY ANTICOAGULANTS, ACCIDENTAL, INIT (5) NSTEMI (non-ST elevated myocardial infarction) Code(s): I21.4 - NON-ST ELEVATION (NSTEMI) MYOCARDIAL INFARCTION (6) Acute kidney insufficiency Code(s): N28.9 - DISORDER OF KIDNEY AND URETER, UNSPECIFIED (7) Anemia Code(s): D64.9 - ANEMIA, UNSPECIFIED plan continue to monitor off of abx gi on case rest as per the team patient remaining stable
--- NOTE | 2018-04-08 13:45 | PN ---
Progress Note, Physician History of Present Illness: Pt seen and examined at bedside. He is refusing endoscopy. He feels well. - Current Medication List Current Medications: Active Medications Atorvastatin Calcium (Lipitor -) 20 mg PO HS SAKSHI Last Admin: 04/07/18 21:04 Dose: 20 mg Latanoprost (Xalatan 0.005% Eye Drops -) 1 drop OU HS SAKSHI Last Admin: 04/07/18 22:47 Dose: 1 drop Metoprolol Tartrate (Lopressor -) 25 mg PO TID [facility] Last Admin: 04/08/18 05:38 Dose: 25 mg Pantoprazole Sodium (Protonix -) 40 mg PO BID [facility] Last Admin: 04/08/18 09:59 Dose: 40 mg Sertraline HCl (Zoloft -) 50 mg PO DAILY [facility] Last Admin: 04/08/18 09:59 Dose: 50 mg - Objective Vital Signs: Vital Signs Temperature 97.8 F 04/08/18 10:00 Pulse Rate 83 04/08/18 10:00 Respiratory Rate 20 04/08/18 10:00 Blood Pressure 104/60 04/08/18 10:00 O2 Sat by Pulse Oximetry (%) 99 04/08/18 09:00 Constitutional: Yes: Calm Eyes: Yes: Conjunctiva Clear HENT: Yes: Atraumatic Cardiovascular: Yes: S1, S2 Respiratory: Yes: CTA Bilaterally Gastrointestinal: Yes: Soft Genitourinary: Yes: WNL Musculoskeletal: Yes: WNL Edema: No Neurological: Yes: Oriented Psychiatric: Yes: Oriented Labs: CBC, BMP 04/08/18 06:30 04/08/18 06:30 INR, PTT INR 1.49 (0.83-1.09) H 04/08/18 06:30 Assessment/Plan Current Medications Generic Name Dose Route Start Last Admin Trade Name Freq PRN Reason Stop Dose Admin Atorvastatin Calcium 20 mg 04/05/18 22:00 04/07/18 21:04 Lipitor - PO 20 mg HS SAKSHI Administration Latanoprost 1 drop 04/05/18 22:00 04/07/18 22:47 Xalatan 0.005% Eye Drops - OU 1 drop HS SAKSHI Administration Metoprolol Tartrate 25 mg 04/05/18 09:30 04/08/18 05:38 Lopressor - PO 25 mg TID SAKSHI Administration Pantoprazole Sodium 40 mg 04/08/18 10:00 04/08/18 09:59 Protonix - PO 40 mg BID SAKSHI Administration Sertraline HCl 50 mg 04/08/18 10:00 04/08/18 09:59 Zoloft - PO 50 mg DAILY SAKSHI Administration Impression 1. MELVIN 2. anemia 3. gi bleed 4. hypotension 5. HLD 6. hx cva 7. lactic acidosis 8. hyperkalemia Plan - renal functions stable - monitor for bleeding - pt tolerating diet - monitor renal function and lytes - will follow PRN Dr Smith
--- NOTE | 2018-04-08 15:52 | PN ---
Physical Exam: SUBJECTIVE: Patient seen and examined at bed side this morning. Doesn't want to talk about GI procedures. No acute overnight events. OBJECTIVE: Vital Signs Period Temp Pulse Resp BP Sys/Daniel Pulse Ox Last 24 Hr 97.5 F-98.1 F 78-90 18-20 104-134/60-74 99-100 GENERAL: Elderly male, sitting in bed comfortably, is awake, alert, and fully oriented, in no acute distress. HEAD: Normal with no signs of trauma. EYES: EOM intact, pallor +, no icterus. ENT: Ears normal, dry mucous membranes. NECK: Supple. LUNGS: Breath sounds equal, Crackles on the Left lung base, right lung clear. HEART: Regular rate and rhythm, S1, S2 without murmur. ABDOMEN: Soft, nontender, no organomegaly, BS +. EXTREMITIES: 2+ pulses, warm, well-perfused, no edema. NEUROLOGICAL: No facial droop, Normal speech, gait not observed. PSYCH: Normal mood, normal affect. SKIN: Warm, dry, normal turgor, no rashes or lesions noted Laboratory Results - last 24 hr 04/08/18 04/08/18 04/08/18 06:30 06:30 06:30 WBC 5.8 RBC 3.21 L Hgb 9.7 L Hct 30.1 L MCV 93.8 MCH 30.1 MCHC 32.0 RDW 16.6 H Plt Count 246 MPV 8.3 PT with INR 17.70 H INR 1.49 H Sodium 140 Potassium 4.4 Chloride 109 H Carbon Dioxide 29 Anion Gap 2 L BUN 21 H Creatinine 1.2 Creat Clearance w eGFR 57.41 Random Glucose 99 Calcium 7.8 L Phosphorus 2.1 L Magnesium 2.4 Active Medications Generic Name Dose Route Start Last Admin Trade Name Freq PRN Reason Stop Dose Admin Atorvastatin Calcium 20 mg 04/05/18 22:00 04/07/18 21:04 Lipitor - PO 20 mg HS SAKSHI Administration Latanoprost 1 drop 04/05/18 22:00 04/07/18 22:47 Xalatan 0.005% Eye Drops - OU 1 drop HS SAKSHI Administration Metoprolol Tartrate 25 mg 04/05/18 09:30 04/08/18 15:33 Lopressor - PO 25 mg TID SAKSHI Administration Pantoprazole Sodium 40 mg 04/08/18 10:00 04/08/18 09:59 Protonix - PO 40 mg BID SAKSHI Administration Sertraline HCl 50 mg 04/08/18 10:00 04/08/18 09:59 Zoloft - PO 50 mg DAILY SAKSHI Administration 04/04: Renal ultrasound normal ASSESSMENT/PLAN: Patient is an 87 year old male with significant PMHx of distant CVA (residual left sided weakness) , afib on Warfarin 4 mg qhs, chronic left carotid occlusion , HTN, HLD, and hemorrhoids presents with rectal bleeding, diarrhea x2d. # Atrial fibrillation-rate controlled-coumadin resumed today On warfarin at home. Was held during this admission due to GI bleed. Patient refusing GI procedure. Discussed with Dr. Rizo (PCP) who spoke with the and is aware of the risk of bleeding on being on blood thinners. They want to start coumadin and if there is any GI bleed would then agree for Colonoscopy. Start Coumadin 2mg today and check INR in AM. # Acute GI bleed-now resolved Patient refusing Colonoscopy/ENdoscopy. # SIRS Blood cultures/urine cultures negative so off antibiotics. No signs of infection. # MELVIN likely prerenal: from hypotension- resolved # Increased troponins demand ischemia vs NSTEMI-trops downtrending. Troponin increased 0.07--> 1.1--> 3.88--> 4.5--. 3.2 continuous cardiac monitoring. # Hyperlipidemia Continue Statin 20mg HS # Hypertension-was hypotensive Continue Metoprolol 25mg TID. # Hyperkalemia now resolved # FEN Not on IVF, can tolerate PO. Electrolytes: Phosphorus repleted. Diet advanced to sodium controlled diet. # Prophylaxis For DVT: Started on Coumadin today. For GI; Protonix 40mg BID # Code Status: Full Code # Dispo: Continue to monitor in Tele. Illness, investigation and Plan of care explained to the patient. He verbalized understanding. Case discussed with Dr. Garzon. Problem List - Problems (1) Acute kidney insufficiency Code(s): N28.9 - DISORDER OF KIDNEY AND URETER, UNSPECIFIED (2) Anemia Code(s): D64.9 - ANEMIA, UNSPECIFIED (3) GIB (gastrointestinal bleeding) Code(s): K92.2 - GASTROINTESTINAL HEMORRHAGE, UNSPECIFIED Qualifiers: GI bleed type/associated pathology: anorectal hemorrhage Qualified Code(s) : K62.5 - Hemorrhage of anus and rectum (4) Hyperkalemia Code(s): E87.5 - HYPERKALEMIA (5) Lactic acid acidosis Code(s): E87.2 - ACIDOSIS (6) Sepsis Code(s): A41.9 - SEPSIS, UNSPECIFIED ORGANISM (7) Supratherapeutic INR Code(s): R79.1 - ABNORMAL COAGULATION PROFILE (8) Warfarin toxicity Code(s): T45.511A - POISONING BY ANTICOAGULANTS, ACCIDENTAL, INIT Visit type - Emergency Visit Emergency Visit: Yes ED Registration Date: 04/03/18 Care time: The patient presented to the Emergency Department on the above date and was hospitalized for further evaluation of their emergent condition. - New Patient This patient is new to me today: No - Critical Care Critical Care patient: No - Discharge Referral Referred to [facility] Med P.C.: No
[2018-04-08] MEDS ORDERED: WARFARIN NA 2 MG TABLET (UD) PO ONE (18:00)
[2018-04-08] MEDS: ATORVASTATIN CA 20 MG TABLET (FP) PO SCH (21:10)
[2018-04-08] MEDS: LATANOPROST 0.005% OPHTH SOLN 2.5ML BOTTLE OU SCH (21:12)
[2018-04-08] MEDS ORDERED: ACETAMINOPHEN 325 MG TABLET (FP) PO PRN (21:39)
[2018-04-09] MEDS: METOPROLOL TARTRATE 25 MG TABLET (FP) PO SCH ×3 (05:30→21:15)
[2018-04-09 06:40] LABS: HEMATOCRIT 27.7 % (35.4-49); HEMOGLOBIN 9.6 GM/dL (11.7-16.9); MCH 32.1 pg (25.7-33.7); MCHC 34.7 g/dl (32.0-35.9); MEAN CELL VOLUME 92.5 fl (80-96); MEAN PLT VOLUME 8.6 fl (7.5-11.1); PLATELET COUNT 229 K/MM3 (134-434); RBC 2.99 M/mm3 (4.00-5.60); RDW 17.1 % (11.9-15.9); WHITE BLOOD COUNT 4.5 K/mm3 (4.0-10.0)
[2018-04-09 06:56] LABS: INR 1.47 (0.83-1.09); PROTHROMBIN TIME (PATIENT) 17.4 SEC (9.7-13.0)
[2018-04-09 07:22] LABS: ANION GAP 4 MMOL/L (8-16); BLOOD UREA NITROGEN 19 mg/dL (7-18); CHLORIDE 110 mmol/L (98-107); CO2 28 mmol/L (21-32); CREATININE 1.1 mg/dL (0.55-1.3); GLUCOSE,RANDOM 98 mg/dL (74-106); POTASSIUM 4.4 mmol/L (3.5-5.1); SODIUM 141 mmol/L (136-145)
[2018-04-09] MEDS: SERTRALINE HCL 50 MG TABLET (FP) PO SCH (09:21)
[2018-04-09] MEDS: PANTOPRAZOLE 40 MG TABLET (FP) PO SCH ×2 (09:21→21:15)
--- NOTE | 2018-04-09 10:59 | PN ---
Progress Note, Physician History of Present Illness: No events No CV complaints this AM Tele: Afib: 70s - Current Medication List Current Medications: Active Medications Acetaminophen (Tylenol -) 650 mg PO Q6H PRN PRN Reason: Fever Last Admin: 04/08/18 22:13 Dose: 650 mg Atorvastatin Calcium (Lipitor -) 20 mg PO HS [facility] Last Admin: 04/08/18 21:10 Dose: 20 mg Latanoprost (Xalatan 0.005% Eye Drops -) 1 drop OU HS [facility] Last Admin: 04/08/18 21:12 Dose: 1 drop Metoprolol Tartrate (Lopressor -) 25 mg PO TID [facility] Last Admin: 04/09/18 05:30 Dose: 25 mg Pantoprazole Sodium (Protonix -) 40 mg PO BID [facility] Last Admin: 04/09/18 09:21 Dose: 40 mg Sertraline HCl (Zoloft -) 50 mg PO DAILY [facility] Last Admin: 04/09/18 09:21 Dose: 50 mg - Objective Vital Signs: Vital Signs Temperature 97.4 F L 04/09/18 09:22 Pulse Rate 74 04/09/18 09:22 Respiratory Rate 18 04/09/18 09:22 Blood Pressure 115/64 04/09/18 09:22 O2 Sat by Pulse Oximetry (%) 100 04/09/18 09:23 Constitutional: Yes: Well Nourished, No Distress Eyes: Yes: WNL HENT: Yes: WNL Neck: Yes: WNL Cardiovascular: Yes: Pulse Irregular Respiratory: Yes: CTA Bilaterally Gastrointestinal: Yes: Normal Bowel Sounds Musculoskeletal: Yes: WNL Edema: No Labs: CBC, BMP 04/09/18 05:50 04/09/18 05:50 INR, PTT INR 1.47 (0.83-1.09) H 04/09/18 05:50 Assessment/Plan LGIB, preop CV eval for FOC and/or EGD: -per GI -INR was high, warfarin reversed (vit K 5mg)--INR coming down -pt at increased risk for lawrence-procedural ischemic complications given myocardial injury with hi troponin: while this is secondary (i.e. demand ischemia), his underlying coronary anatomy/ischemic burden is unknown, and Type II NC still confers adverse prognostic value. however, evaluating his ischemic burden with pharmacologic stress test will not change control coordinator as we are already optimizing his BB dose as much as his BP will allow, and he is not a candidate for any invasive tx strategy or anti-PLT/AC meds. He requires AC due to prior CVA history with high risk of cardioembolic stroke (CHADS VASC = 5-6, i.e. risk of stroke is 6.5-10%/year), therefore cannot safely defer GI scopes for definitive tx of underlying bleeding culprit. his risk of stroke if he is maintained off AC is statistically signif higher than his lawrence-procedural CV risk (vijay if one factors in > 1 year of being off AC). he is medically optimized (continue bb, statin as doing) to the extent possible and he has had no s/sx of CHF or angina, with preserved LVEF. no further testing or CV optimization indicated prior to procedures-->patient is refusing GI work up. Afib: -Well rate controlled at present -on warfarin at home--being held for LGIB with hemodynamic consequences. Pt refusing GI w/u. No further melena/rectal bleeding and hgb stable. INR was close to 6 on admit so possibly provoked GIB. As per Dr. Villafuerte, Can resume ac with closer INR and hgb monitoring if pt is willing to accept risk of re- bleeding. NSTEMI: -trop peaked 4.5, now downtrending -likely secondary to acute hypotension/tachy, i.e. deman ischemia/Type II NC -ECG's stable -echo with mild decr EF, ? regional per report (TDS regional wall motion) -not a candidate for anti-PLTs, AC or invasive interventions regardless given his GIB of unknown source and pt refusing GI eval. -cont BB, HR control as doing. statin. -remains asymptomatic -Agree with risk-stratification with pharm MPI once acute issues resolve but only if agreeable to further work up (cath) and candidate for DAPT. MELVIN: -baseline creat 1.1 in 02/20 -initial creat 2.4, coming down with IVF now back to baseline (1.1) HPL, h/o carotid dz: -resume home atorva
--- NOTE | 2018-04-09 12:22 | PN ---
Physical Exam: SUBJECTIVE: Patient seen and examined, breathing improved, no nausea, vomiting or abdominal pain. No further BM, tolerating diet. OBJECTIVE: Vital Signs Period Temp Pulse Resp BP Sys/Daniel Pulse Ox Last 24 Hr 97.2 F-98.1 F 74-98 16-20 112-134/60-79 96-100 GENERAL: The patient is awake, alert, and fully oriented, in no acute distress. HEAD: Normal with no signs of trauma. EYES: PERRL, extraocular movements intact, sclera anicteric, conjunctiva clear. No ptosis. ENT: Ears normal, nares patent, oropharynx clear without exudates, moist mucous membranes. NECK: Trachea midline, full range of motion, supple. LUNGS: decreased air entry all over, no wheezing or rales appreciated HEART: S1S2 irregular ABDOMEN: Soft, nontender, nondistended, normoactive bowel sounds, no guarding, no rebound EXTREMITIES: trace pedal edema, SCDs in place PSYCH: Normal mood, normal affect. SKIN: Warm, dry, normal turgor, no rashes or lesions noted Laboratory Results - last 24 hr 04/09/18 04/09/18 04/09/18 05:50 05:50 05:50 WBC 4.5 RBC 2.99 L Hgb 9.6 L Hct 27.7 L MCV 92.5 MCH 32.1 MCHC 34.7 RDW 17.1 H Plt Count 229 MPV 8.6 PT with INR 17.40 H INR 1.47 H Sodium 141 Potassium 4.4 Chloride 110 H Carbon Dioxide 28 Anion Gap 4 L BUN 19 H Creatinine 1.1 Creat Clearance w eGFR > 60 Random Glucose 98 Calcium 8.0 L Active Medications Generic Name Dose Route Start Last Admin Trade Name Freq PRN Reason Stop Dose Admin Acetaminophen 650 mg 04/08/18 21:39 04/08/18 22:13 Tylenol - PO 650 mg Q6H PRN Administration Fever Atorvastatin Calcium 20 mg 04/05/18 22:00 04/08/18 21:10 Lipitor - PO 20 mg HS SAKSHI Administration Latanoprost 1 drop 04/05/18 22:00 04/08/18 21:12 Xalatan 0.005% Eye Drops - OU 1 drop HS SAKSHI Administration Metoprolol Tartrate 25 mg 04/05/18 09:30 01/05/19 05:30 Lopressor - PO 25 mg TID SAKSHI Administration Pantoprazole Sodium 40 mg 04/08/18 10:00 04/09/18 09:21 Protonix - PO 40 mg BID SAKSHI Administration Sertraline HCl 50 mg 04/08/18 10:00 04/09/18 09:21 Zoloft - PO 50 mg DAILY SAKSHI Administration Microbiology 04/04/18 13:00 Blood - Peripheral Venous Blood Culture - Preliminary NO GROWTH OBTAINED AFTER 96 HOURS, INCUBATION TO CONTINUE FOR 1 DAYS. 04/04/18 12:45 Blood - Peripheral Venous Blood Culture - Preliminary NO GROWTH OBTAINED AFTER 96 HOURS, INCUBATION TO CONTINUE FOR 1 DAYS. 04/04/18 18:15 Urine - Urine Clean Catch Urine Culture - Final NO GROWTH OBTAINED ASSESSMENT/PLAN: 87 year old male with significant PMHx of distant CVA (residual left sided weakness), atrial fibrillation on Warfarin 4 mg qhs, chronic left carotid occlusion, HTN, HLD, and hemorrhoids presents with rectal bleeding, diarrhea like x2d, supratherapeutic INR, with hemodynamic instability (hypotension/ tachycardia) requiring ICU admission s/p 2units PRBC/1 unit FFP/vitamin K, also elevated troponin. -Acute GI bleed with hemodynamic instability (hypotension/tachycardia), diverticular vs haemorrhagic vs ischemic colitis, low suspicion for Upper GI bleed based on presentation -Supratherapeutic INR -Elevated troponin, suspect Demand type II NSTEMI from above, suspicious for underlying ischemic heart disease (EKG and 2D echo suggestive of inferolateral ischemia) -MELVIN, suspect from hypotension/GI Bleed -HYPotension from GI bleed, resolved -Hyperkalemia 6.8 on admission, resolved, suspect from MELVIN -Chronic left carotid occlusion -HTN -HLD -Haemorrhoids. Plan: s/p 2units PRBC, 1 unit FFP and 5 mg Vitamin K. H/h and hemodynamics stable. Protonix 40 mg PO BID. No further dark or bloody stools. Cardiology/gastroenterology input noted. Patient adamantly declines endoscopy, multiple discussions by multiple providers. Cardiology input noted. h/h and hemodynamics stable, no further evidence of bleed, Rebleeding risk on warfarin discussed by Dr. Rizo with patient and who relay understanding and will consider colonoscopy if rebleed. Agreable to warfarin for now. Warfarin started at 2 mg daily on 04/08, daily INR. Metoprolol for rate control. Nephrology input noted. renal function improved. Spironolactone held given hyperkalemia/MELVIN on admission. Continue sertraline. PT eval and dispo planning. DVTPPX SCDs dispo in 2-3 days if INR therapeutic on warfarin with no concerns. Plan discussed with patient and nursing, all questions answered. Visit type - Emergency Visit Emergency Visit: Yes ED Registration Date: 04/03/18 Care time: The patient presented to the Emergency Department on the above date and was hospitalized for further evaluation of their emergent condition. - New Patient This patient is new to me today: No - Critical Care Critical Care patient: No - Discharge Referral Referred to [facility] Med [facility].C.: No
[2018-04-09] MEDS: MAGNESIUM OXIDE 400 MG TABLET (FP) PO SCH (13:41)
--- NOTE | 2018-04-09 15:15 | PN ---
Progress Note, Physician History of Present Illness: Pt seen and examined. Events noted. Pt had a normal BM today, diet advanced. Denies abd pain/discomfort. - Current Medication List Current Medications: Active Medications Acetaminophen (Tylenol -) 650 mg PO Q6H PRN PRN Reason: Fever Last Admin: 04/08/18 22:13 Dose: 650 mg Atorvastatin Calcium (Lipitor -) 20 mg PO [facility] Last Admin: 04/08/18 21:10 Dose: 20 mg Latanoprost (Xalatan 0.005% Eye Drops -) 1 drop OU [facility] Last Admin: 04/08/18 21:12 Dose: 1 drop Magnesium Oxide (Mag-Ox -) 800 mg PO DAILY [facility] Stop: 04/11/18 10:01 Last Admin: 04/09/18 13:41 Dose: 800 mg Metoprolol Tartrate (Lopressor -) 25 mg PO TID [facility] Last Admin: 04/09/18 13:42 Dose: 25 mg Pantoprazole Sodium (Protonix -) 40 mg PO BID [facility] Last Admin: 04/09/18 09:21 Dose: 40 mg Sertraline HCl (Zoloft -) 50 mg PO DAILY [facility] Last Admin: 04/09/18 09:21 Dose: 50 mg Warfarin Sodium (Coumadin -) 2 mg PO DAILY@1800 [facility] - Objective Vital Signs: Vital Signs Temperature 97.8 F 04/09/18 14:10 Pulse Rate 78 04/09/18 14:10 Respiratory Rate 18 04/09/18 14:10 Blood Pressure 112/62 04/09/18 14:10 O2 Sat by Pulse Oximetry (%) 100 04/09/18 09:23 Constitutional: Yes: No Distress, Calm Cardiovascular: Yes: Pulse Irregular Respiratory: Yes: Regular Gastrointestinal: Yes: Normal Bowel Sounds, Soft Genitourinary: Yes: WNL Integumentary: Yes: WNL Neurological: Yes: Alert Labs: CBC, BMP 04/09/18 05:50 04/09/18 05:50 INR, PTT INR 1.47 (0.83-1.09) H 04/09/18 05:50 Problem List - Problems (1) Acute kidney insufficiency Code(s): N28.9 - DISORDER OF KIDNEY AND URETER, UNSPECIFIED (2) GIB (gastrointestinal bleeding) Code(s): K92.2 - GASTROINTESTINAL HEMORRHAGE, UNSPECIFIED Qualifiers: GI bleed type/associated pathology: anorectal hemorrhage Qualified Code(s) : K62.5 - Hemorrhage of anus and rectum (3) Lactic acid acidosis Code(s): E87.2 - ACIDOSIS (4) NSTEMI (non-ST elevated myocardial infarction) Code(s): I21.4 - NON-ST ELEVATION (NSTEMI) MYOCARDIAL INFARCTION (5) Warfarin toxicity Code(s): T45.511A - POISONING BY ANTICOAGULANTS, ACCIDENTAL, INIT Assessment/Plan GI Bleed MELVIN NSTEMI Hx of CVA Carotid stenosis HTN HLD --- pt afebrile, stable -- no recent rectal bleed stable off of antibiotics
[2018-04-09] MEDS: WARFARIN NA 2 MG TABLET (UD) PO SCH (17:59)
[2018-04-09] MEDS ORDERED: PT OWN MED DRAWER 7, Y5N ONE (21:14)
[2018-04-09] MEDS: LATANOPROST 0.005% OPHTH SOLN 2.5ML BOTTLE OU SCH (21:15)
[2018-04-09] MEDS: ATORVASTATIN CA 20 MG TABLET (FP) PO SCH (21:15)
[2018-04-10] MEDS: METOPROLOL TARTRATE 25 MG TABLET (FP) PO SCH ×3 (05:49→21:53)
[2018-04-10 08:20] LABS: HEMATOCRIT 29.8 % (35.4-49); HEMOGLOBIN 9.7 GM/dL (11.7-16.9); MCH 30.3 pg (25.7-33.7); MCHC 32.5 g/dl (32.0-35.9); MEAN CELL VOLUME 93.3 fl (80-96); RDW 16.9 % (11.9-15.9); WHITE BLOOD COUNT 6.3 K/mm3 (4.0-10.0)
[2018-04-10 08:21] LABS: EOS % 1.1 % (0-4.5); LYMPH % 8.9 % (8-40); MEAN PLT VOLUME 8.9 fl (7.5-11.1); MONO % 6.2 % (3.8-10.2); NEUT % 82.8 % (42.8-82.8); PLATELET COUNT 229 K/MM3 (134-434)
[2018-04-10] MEDS: MAGNESIUM OXIDE 400 MG TABLET (FP) PO SCH (09:19)
[2018-04-10] MEDS: PANTOPRAZOLE 40 MG TABLET (FP) PO SCH ×2 (09:19→21:53)
[2018-04-10] MEDS: SERTRALINE HCL 50 MG TABLET (FP) PO SCH (09:19)
--- NOTE | 2018-04-10 09:51 | PN ---
Progress Note, Physician History of Present Illness: No complaints Tele: Afib 70s, with rare PVCs - Current Medication List Current Medications: Active Medications Acetaminophen (Tylenol -) 650 mg PO Q6H PRN PRN Reason: Fever Last Admin: 04/08/18 22:13 Dose: 650 mg Atorvastatin Calcium (Lipitor -) 20 mg PO HS [facility] Last Admin: 04/09/18 21:15 Dose: 20 mg Latanoprost (Xalatan 0.005% Eye Drops -) 1 drop OU HS [facility] Last Admin: 04/09/18 21:15 Dose: 1 drop Magnesium Oxide (Mag-Ox -) 800 mg PO DAILY [facility] Stop: 04/11/18 10:01 Last Admin: 04/10/18 09:19 Dose: 800 mg Metoprolol Tartrate (Lopressor -) 25 mg PO TID [facility] Last Admin: 04/10/18 05:49 Dose: Not Given Pantoprazole Sodium (Protonix -) 40 mg PO BID [facility] Last Admin: 04/10/18 09:19 Dose: 40 mg Sertraline HCl (Zoloft -) 50 mg PO DAILY [facility] Last Admin: 04/10/18 09:19 Dose: 50 mg Warfarin Sodium (Coumadin -) 2 mg PO DAILY@1800 [facility] Last Admin: 04/09/18 17:59 Dose: 2 mg - Objective Vital Signs: Vital Signs Temperature 97.4 F L 04/10/18 09:23 Pulse Rate 84 04/10/18 09:23 Respiratory Rate 20 04/10/18 09:23 Blood Pressure 128/69 04/10/18 09:23 O2 Sat by Pulse Oximetry (%) 100 04/10/18 09:23 Constitutional: Yes: No Distress Eyes: Yes: WNL HENT: Yes: WNL Neck: Yes: WNL Cardiovascular: Yes: Pulse Irregular Respiratory: Yes: CTA Bilaterally Gastrointestinal: Yes: Normal Bowel Sounds Musculoskeletal: Yes: WNL Extremities: Yes: WNL Edema: No Labs: CBC, BMP 04/10/18 05:55 04/09/18 05:50 INR, PTT INR 1.47 (0.83-1.09) H 04/09/18 05:50 Assessment/Plan LGIB, preop CV eval for FOC and/or EGD: -per GI -INR was high, warfarin reversed (vit K 5mg)--INR coming down patient is refusing GI work up. Afib: -Well rate controlled at present -on warfarin at home--being held for LGIB with hemodynamic consequences. Pt refusing GI w/u. No further melena/rectal bleeding and hgb stable. INR was close to 6 on admit so possibly provoked GIB. -As per Dr. Villafuerte in prior notes, consideration of resuming ac with closer INR and hgb monitoring if pt is willing to accept risk of re-bleeding. NSTEMI: -trop peaked 4.5, now downtrending -likely secondary to acute hypotension/tachy, i.e. deman ischemia/Type II IA -ECG's stable -echo with mild decr EF, ? regional per report (TDS regional wall motion) -not a candidate for anti-PLTs, AC or invasive interventions regardless given his GIB of unknown source and pt refusing GI eval. -cont BB, HR control as doing. statin. -remains asymptomatic -Agree with risk-stratification with pharma MPI once acute issues resolve but only if agreeable to further work up (cath) and candidate for DAPT. MELVIN: -baseline creat 1.1 in 02/20 -initial creat 2.4, coming down with IVF now back to baseline (1.1) HPL, h/o carotid dz: -resume home atorva
[2018-04-10 12:49] LABS: INR 1.51 (0.83-1.09); PROTHROMBIN TIME (PATIENT) 17.9 SEC (9.7-13.0)
--- NOTE | 2018-04-10 14:40 | PN ---
Physical Exam: SUBJECTIVE: Patient seen and examined, breathing improved, no new complaints. OBJECTIVE: Vital Signs Period Temp Pulse Resp BP Sys/Daniel Pulse Ox Last 24 Hr 97.4 F-98.2 F 74-84 18-20 100-128/57-69 100-100 GENERAL: The patient is awake, alert, and fully oriented, in no acute distress. HEAD: Normal with no signs of trauma. EYES: PERRL, extraocular movements intact, sclera anicteric, conjunctiva clear. No ptosis. ENT: Ears normal, nares patent, oropharynx clear without exudates, moist mucous membranes. NECK: Trachea midline, full range of motion, supple. LUNGS: decreased air entry all over, no wheezing or rales appreciated HEART: S1S2 irregular ABDOMEN: Soft, nontender, nondistended, normoactive bowel sounds, no guarding, no rebound EXTREMITIES: trace pedal edema, SCDs in place PSYCH: Normal mood, normal affect. SKIN: Warm, dry, normal turgor, no rashes or lesions noted Laboratory Results - last 24 hr 04/10/18 04/10/18 05:55 05:55 WBC 6.3 RBC 3.20 L Hgb 9.7 L Hct 29.8 L MCV 93.3 MCH 30.3 MCHC 32.5 RDW 16.9 H Plt Count 229 MPV 8.9 Absolute Neuts (auto) 5.2 Neutrophils % 82.8 Lymphocytes % 8.9 D Monocytes % 6.2 Eosinophils % 1.1 D Basophils % 1.0 PT with INR 17.90 H INR 1.51 H Active Medications Generic Name Dose Route Start Last Admin Trade Name Freq PRN Reason Stop Dose Admin Acetaminophen 650 mg 04/08/18 21:39 04/08/18 22:13 Tylenol - PO 650 mg Q6H PRN Administration Fever Atorvastatin Calcium 20 mg 04/05/18 22:00 04/09/18 21:15 Lipitor - PO 20 mg HS SAKSHI Administration Latanoprost 1 drop 04/05/18 22:00 04/09/18 21:15 Xalatan 0.005% Eye Drops - OU 1 drop HS SAKSHI Administration Magnesium Oxide 800 mg 04/09/18 12:30 04/10/18 09:19 Mag-Ox - PO 04/11/18 10:01 800 mg DAILY SAKSHI Administration Metoprolol Tartrate 25 mg 04/05/18 09:30 04/10/18 14:28 Lopressor - PO Not Given TID [facility] Pantoprazole Sodium 40 mg 04/08/18 10:00 04/10/18 09:19 Protonix - PO 40 mg BID SAKSHI Administration Sertraline HCl 50 mg 04/08/18 10:00 04/10/18 09:19 Zoloft - PO 50 mg DAILY SAKSHI Administration Warfarin Sodium 2 mg 04/09/18 18:00 04/09/18 17:59 Coumadin - PO 2 mg DAILY@1800 SAKSHI Administration ASSESSMENT/PLAN: 87 year old male with significant PMHx of distant CVA (residual left sided weakness), atrial fibrillation on Warfarin 4 mg qhs, chronic left carotid occlusion, HTN, HLD, and hemorrhoids presents with rectal bleeding, diarrhea like x2d, supratherapeutic INR, with hemodynamic instability (hypotension/ tachycardia) requiring ICU admission s/p 2units PRBC/1 unit FFP/vitamin K, also elevated troponin. -Acute GI bleed with hemodynamic instability (hypotension/tachycardia), diverticular vs haemorrhagic vs ischemic colitis, low suspicion for Upper GI bleed based on presentation -Supratherapeutic INR -Elevated troponin, suspect Demand type II NSTEMI from above, suspicious for underlying ischemic heart disease (EKG and 2D echo suggestive of inferolateral ischemia) -MELVIN, suspect from hypotension/GI Bleed -HYPotension from GI bleed, resolved -Hyperkalemia 6.8 on admission, resolved, suspect from MELVIN -Chronic left carotid occlusion -HTN -HLD -Haemorrhoids. Plan: s/p 2units PRBC, 1 unit FFP and 5 mg Vitamin K. H/h and hemodynamics stable. Protonix 40 mg PO BID. No further dark or bloody stools. Cardiology/gastroenterology input noted. Patient adamantly declines endoscopy, multiple discussions by multiple providers. Cardiology input noted. h/h and hemodynamics stable, no further evidence of bleed, Rebleeding risk on warfarin discussed by Dr. Rizo with patient and who relay understanding and will consider colonoscopy if rebleed. Agreable to warfarin for now. Warfarin started at 2 mg daily on 04/08, daily INR. Metoprolol for rate control. Nephrology input noted. renal function improved. Spironolactone held given hyperkalemia/MELVIN on admission. Continue sertraline. PT eval and dispo planning. DVTPPX SCDs dispo in 2-3 days if INR therapeutic on warfarin with no concerns. Plan discussed with patient and nursing, all questions answered. Visit type - Emergency Visit Emergency Visit: Yes ED Registration Date: 04/03/18 Care time: The patient presented to the Emergency Department on the above date and was hospitalized for further evaluation of their emergent condition. - New Patient This patient is new to me today: No - Critical Care Critical Care patient: No - Discharge Referral Referred to [facility] Med P.C.: No
[2018-04-10] MEDS: WARFARIN NA 2 MG TABLET (UD) PO SCH (18:01)
[2018-04-10] MEDS ORDERED: PT OWN MED DRAWER 7, Y5N ONE ×2 (20:59→22:40)
[2018-04-10] MEDS: LATANOPROST 0.005% OPHTH SOLN 2.5ML BOTTLE OU SCH (21:53)
[2018-04-10] MEDS: ATORVASTATIN CA 20 MG TABLET (FP) PO SCH (21:53)
[2018-04-11] MEDS: METOPROLOL TARTRATE 25 MG TABLET (FP) PO SCH ×3 (05:18→21:16)
[2018-04-11 06:36] LABS: HEMATOCRIT 27.9 % (35.4-49); HEMOGLOBIN 9.7 GM/dL (11.7-16.9); MCHC 34.7 g/dl (32.0-35.9); MEAN CELL VOLUME 92.3 fl (80-96); MEAN PLT VOLUME 8.6 fl (7.5-11.1); PLATELET COUNT 222 K/MM3 (134-434); RBC 3.02 M/mm3 (4.00-5.60); RDW 16.6 % (11.9-15.9); WHITE BLOOD COUNT 5.7 K/mm3 (4.0-10.0)
[2018-04-11 07:10] LABS: INR 1.6 (0.83-1.09)
[2018-04-11 07:20] LABS: ANION GAP 2 MMOL/L (8-16); BLOOD UREA NITROGEN 14 mg/dL (7-18); CHLORIDE 109 mmol/L (98-107); CO2 31 mmol/L (21-32); GLUCOSE,RANDOM 112 mg/dL (74-106); MAGNESIUM 2.5 mg/dL (1.8-2.4); PHOSPHOROUS 2.2 mg/dL (2.5-4.9); SODIUM 141 mmol/L (136-145)
--- NOTE | 2018-04-11 08:57 | PN ---
Progress Note, Physician Chief Complaint: lgib History of Present Illness: no rectal blood, melena no cp, sob, palpit. feels well ex cigs - Current Medication List Current Medications: Active Medications Acetaminophen (Tylenol -) 650 mg PO Q6H PRN PRN Reason: Fever Last Admin: 04/08/18 22:13 Dose: 650 mg Atorvastatin Calcium (Lipitor -) 20 mg PO [facility] Last Admin: 04/10/18 21:53 Dose: 20 mg Latanoprost (Xalatan 0.005% Eye Drops -) 1 drop OU [facility] Last Admin: 04/10/18 21:53 Dose: 1 drop Magnesium Oxide (Mag-Ox -) 800 mg PO DAILY [facility] Stop: 04/11/18 10:01 Last Admin: 04/10/18 09:19 Dose: 800 mg Metoprolol Tartrate (Lopressor -) 25 mg PO TID [facility] Last Admin: 04/11/18 05:18 Dose: 25 mg Pantoprazole Sodium (Protonix -) 40 mg PO BID [facility] Last Admin: 04/10/18 21:53 Dose: 40 mg Sertraline HCl (Zoloft -) 50 mg PO DAILY [facility] Last Admin: 04/10/18 09:19 Dose: 50 mg Warfarin Sodium (Coumadin -) 2 mg PO DAILY@1800 [facility] Last Admin: 04/10/18 18:01 Dose: 2 mg - Objective Vital Signs: Vital Signs Temperature 97.7 F 04/11/18 05:18 Pulse Rate 70 04/11/18 05:18 Respiratory Rate 20 04/11/18 05:18 Blood Pressure 110/54 L 04/11/18 05:18 O2 Sat by Pulse Oximetry (%) 100 04/10/18 19:59 Constitutional: Yes: No Distress, Calm Eyes: No: Sclera Icterus HENT: No: Nasal Congestion Cardiovascular: Yes: Pulse Irregular, S1, S2, Other (PMI non diplaced). No: JVD , Gallop, Murmur Respiratory: Yes: CTA Bilaterally. No: Accessory Muscle Use, Rales, Wheezes Gastrointestinal: Yes: Normal Bowel Sounds, Soft. No: Tenderness Musculoskeletal: Yes: Other (No kyphosis) Extremities: No: Cyanosis Edema: No Integumentary: No: Jaundice Neurological: Yes: Alert, Oriented (x3) Psychiatric: No: Agitated Labs: CBC, BMP 04/11/18 06:00 04/11/18 06:00 INR, PTT INR 1.60 (0.83-1.09) H 04/11/18 06:00 Assessment/Plan EKG 04/03 (19:17): poor baseline, prob fib/flutter. HR 106. 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 nonsp ST-Ts I/avL EKG 04/04: afib, more pronounced STs lateral leads ECG 04/05: afib, no change vs 04/04 CXR: clear lungs/pleura Echo 03/22: nl LV size. mild decr EF (45-50%). RWMA tds. inferolateral wall appears mildly HK. nl RV. mild TR. PASP at least 49. tele: afib, good HR a/p: LGIB, preop CV eval for FOC and/or EGD: -per GI -INR was high (>5), warfarin reversed with vit K -he declined GIB workup Afib: -rapid HR initially due to active bleeding with hypotension, improving with improved hemodynamics -low BP limits AVN blocking med options. low GFR risk for digoxin -tolerating moderate dose lopressor with soft but stable bp's, HRs reasonable-- stable on tele, continue same dose -h/o CVA, hi CHADS VASC score. -was on warfarin at home. INR >5 here, GIB--AC held. No further melena/rectal bleeding and hgb stable. Pt refuses GIB w/u. AC has been resumed with plan to monitor INR closely and hope for preventing bleeding if can be maintained more consistently in 2-3 range. -pt is high risk for CVA if AC is permanently discontinued. he is also high risk for adverse CV outcome if has severe bleeding (based on the presentation this time). he was seeing Dr. Cardenas previously for cardio, has not returned recently (Dr. Cardenas has left the area). Pt was advised he will need to d/w Dr. Holley to arrange close INR f/u and ongoing cardio care as outpt (dr holley informed of plan as well) NSTEMI: -trop peaked 4.5, now downtrending -likely secondary to acute hypotension/tachy, i.e. deman ischemia/Type II WI -ECG's stable -echo with mild decr EF, ? regional per report (TDS regional wall motion) -not a candidate for anti-PLTs, AC or invasive interventions regardless given his GIB of unknown source and pt refusing GI eval. -cont BB, HR control as doing. statin. -remains asymptomatic -pt is refusing further testing--d/w'd pt and today concern over underyling chronic, stable CAD and cannot say if hi risk or not without further imaging. rec'd pharm MPI for risk stratification. he is very aggravated at prolonged hosp stay and wishes to defer this until can d/w dr holley as outpt. low risk clinically given never had signs of ACS and no ischemic sx's here. d/w' d dr holley who will arrange outpt cardio f/u MELVIN: -baseline creat 1.1 in 02/20 -initial creat 2.4, coming down with IVF pulm HTN: -at least mild-mod pulm HTN on echo here, possibly high left sided filling pressures due to acute ischemia/rapid AF -outpt f/u HTN: -stable HPL, h/o carotid dz: -resume home atorva
[2018-04-11] MEDS: PANTOPRAZOLE 40 MG TABLET (FP) PO SCH ×2 (10:21→21:16)
[2018-04-11] MEDS: SERTRALINE HCL 50 MG TABLET (FP) PO SCH (10:21)
[2018-04-11] MEDS: MAGNESIUM OXIDE 400 MG TABLET (FP) PO SCH (10:21)
--- NOTE | 2018-04-11 10:28 | PN ---
Teaching Attending Note Name of Resident: Alejandra Salter ATTENDING PHYSICIAN STATEMENT I saw and evaluated the patient. I reviewed the resident's note and discussed the case with the resident. I agree with the resident's findings and plan as documented with exceptions below. SUBJECTIVE: Patient seen and examined. No complaints. breathing improved. No further bowel movements. pos cough today, not present earlier. OBJECTIVE: Vital Signs Period Temp Pulse Resp BP Sys/Daniel Pulse Ox Last 24 Hr 97.5 F-98.4 F 69-91 18-20 95-116/54-66 100 Intake & Output 04/08/18 04/09/18 04/10/18 04/11/18 23:59 23:59 23:59 23:59 Intake Total 770 200 100 50 Output Total 500 150 400 150 Balance 270 50 -300 -100 General: sitting in bed in no acute distress Chest: decreased air entry all over, no wheezing or rhonchi appreciated Abdomen:soft, NT, ND Extremities: no edema, SCDs present Neck: soft, supple, no JVD Home Medications Medication Instructions Recorded Atorvastatin Ca [Lipitor] 20 mg PO DAILY 04/03/18 Diltiazem [Cardizem -] 120 mg PO DAILY 04/03/18 Latanoprost/Pf [Latanoprost 0.005% 1 drop OU HS 04/03/18 Eye Drop] Sertraline HCl [Zoloft -] 50 mg PO DAILY 04/03/18 Spironolactone [Aldactone] 25 mg PO DAILY 04/03/18 Torsemide [Demadex -] 20 mg PO BID 04/03/18 Warfarin Sodium 4 mg PO HS 04/03/18 Active Medications Acetaminophen (Tylenol -) 650 mg PO Q6H PRN PRN Reason: Fever Last Admin: 04/08/18 22:13 Dose: 650 mg Atorvastatin Calcium (Lipitor -) 20 mg PO [facility] Last Admin: 04/10/18 21:53 Dose: 20 mg Latanoprost (Xalatan 0.005% Eye Drops -) 1 drop OU [facility] Last Admin: 04/10/18 21:53 Dose: 1 drop Metoprolol Tartrate (Lopressor -) 25 mg PO TID [facility] Last Admin: 04/11/18 05:18 Dose: 25 mg Pantoprazole Sodium (Protonix -) 40 mg PO BID [facility] Last Admin: 04/11/18 10:21 Dose: 40 mg Sertraline HCl (Zoloft -) 50 mg PO DAILY [facility] Last Admin: 04/11/18 10:21 Dose: 50 mg Warfarin Sodium (Coumadin -) 2 mg PO DAILY@1800 [facility] Last Admin: 04/10/18 18:01 Dose: 2 mg Laboratory Results - last 24 hr 04/10/18 04/11/18 04/11/18 05:55 06:00 06:00 WBC 5.7 RBC 3.02 L Hgb 9.7 L Hct 27.9 L MCV 92.3 MCH 32.0 MCHC 34.7 RDW 16.6 H Plt Count 222 MPV 8.6 PT with INR 17.90 H 19.00 H INR 1.51 H 1.60 H Sodium Potassium Chloride Carbon Dioxide Anion Gap BUN Creatinine Creat Clearance w eGFR Random Glucose Calcium Phosphorus Magnesium 04/11/18 06:00 WBC RBC Hgb Hct MCV MCH MCHC RDW Plt Count MPV PT with INR INR Sodium 141 Potassium 5.0 Chloride 109 H Carbon Dioxide 31 Anion Gap 2 L BUN 14 Creatinine 1.0 Creat Clearance w eGFR > 60 Random Glucose 112 H Calcium 8.0 L Phosphorus 2.2 L Magnesium 2.5 H ASSESSMENT AND PLAN: 87 year old male with significant PMHx of distant CVA (residual left sided weakness), atrial fibrillation on Warfarin 4 mg qhs, chronic left carotid occlusion, HTN, HLD, and hemorrhoids presents with rectal bleeding, diarrhea like x2d, supratherapeutic INR, with hemodynamic instability (hypotension/ tachycardia) requiring ICU admission s/p 2units PRBC/1 unit FFP/vitamin K, also elevated troponin. -Acute GI bleed with hemodynamic instability (hypotension/tachycardia), diverticular vs haemorrhagic vs ischemic colitis, low suspicion for Upper GI bleed based on presentation -Supratherapeutic INR -Elevated troponin, suspect Demand type II NSTEMI from above, suspicious for underlying ischemic heart disease (EKG and 2D echo suggestive of inferolateral ischemia) -MELVIN, suspect from hypotension/GI Bleed -HYPotension from GI bleed, resolved -Hyperkalemia 6.8 on admission, resolved, suspect from MELVIN -Chronic left carotid occlusion -HTN -HLD -Haemorrhoids. Plan: s/p 2units PRBC, 1 unit FFP and 5 mg Vitamin K. H/h and hemodynamics stable. Protonix 40 mg PO BID. No further dark or bloody stools. Cardiology/gastroenterology input noted. Patient adamantly declines endoscopy, multiple discussions by multiple providers. Cardiology input noted. h/h and hemodynamics stable, no further evidence of bleed, Rebleeding risk on warfarin discussed by Dr. Rizo with patient and who relay understanding and will consider colonoscopy if rebleed. Agreable to warfarin for now. Warfarin started at 2 mg daily on 04/08, daily INR. Discussed with Dr. Dunlap, risks of bridging with heparin higher currently, will continue coumadin and left INR rise slowly which watching for GI bleed. Resume torsemide at 20 mg daily. Continue to hold Aldactone. (hyperkalemia/MELVIN on admission, K 5 today) Metoprolol for rate control. Nephrology input noted. renal function improved. Continue sertraline. PT eval and dispo planning. Encourage OOB, home oxygen needs assessment. DVTPPX SCDs dispo in 2-3 days if INR therapeutic on warfarin with no concerns. Plan discussed with patient and nursing, all questions answered. Care co-ordinated with cardiology.
[2018-04-11] MEDS: TORSEMIDE 20 MG TABLET (FP) PO SCH (11:27)
[2018-04-11] MEDS ORDERED: NAPH,MB-DB/K PH,MBDB POWDER PACKET PO ONE (11:37)
--- NOTE | 2018-04-11 11:37 | PN ---
Physical Exam: SUBJECTIVE: Patient seen and examined at bed side this morning. Wants to go home . ROS negative. Doesn't remember last bowel movement. No acute overnight events. OBJECTIVE: Vital Signs Period Temp Pulse Resp BP Sys/Daniel Pulse Ox Last 24 Hr 97.5 F-98.4 F 69-91 18-20 95-126/54-66 100 GENERAL: Elderly male, sitting in bed comfortably, is awake, alert, and fully oriented, in no acute distress. HEAD: Normal with no signs of trauma. EYES: EOM intact, pallor +, no icterus. ENT: Ears normal, dry mucous membranes. NECK: Supple. LUNGS: Breath sounds equal, Crackles on the Left lung base, right lung clear. HEART: Regular rate and rhythm, S1, S2 without murmur. ABDOMEN: Soft, nontender, no organomegaly, BS +. EXTREMITIES: 2+ pulses, warm, well-perfused, no edema. NEUROLOGICAL: No facial droop, Normal speech, gait not observed. PSYCH: Normal mood, normal affect. SKIN: Warm, dry, normal turgor, no rashes or lesions noted Laboratory Results - last 24 hr 04/10/18 04/11/18 04/11/18 05:55 06:00 06:00 WBC 5.7 RBC 3.02 L Hgb 9.7 L Hct 27.9 L MCV 92.3 MCH 32.0 MCHC 34.7 RDW 16.6 H Plt Count 222 MPV 8.6 PT with INR 17.90 H 19.00 H INR 1.51 H 1.60 H Sodium Potassium Chloride Carbon Dioxide Anion Gap BUN Creatinine Creat Clearance w eGFR Random Glucose Calcium Phosphorus Magnesium 04/11/18 06:00 WBC RBC Hgb Hct MCV MCH MCHC RDW Plt Count MPV PT with INR INR Sodium 141 Potassium 5.0 Chloride 109 H Carbon Dioxide 31 Anion Gap 2 L BUN 14 Creatinine 1.0 Creat Clearance w eGFR > 60 Random Glucose 112 H Calcium 8.0 L Phosphorus 2.2 L Magnesium 2.5 H Active Medications Generic Name Dose Route Start Last Admin Trade Name Freq PRN Reason Stop Dose Admin Acetaminophen 650 mg 04/08/18 21:39 04/08/18 22:13 Tylenol - PO 650 mg Q6H PRN Administration Fever Atorvastatin Calcium 20 mg 04/05/18 22:00 04/10/18 21:53 Lipitor - PO 20 mg HS SAKSHI Administration Latanoprost 1 drop 04/05/18 22:00 04/10/18 21:53 Xalatan 0.005% Eye Drops - OU 1 drop HS SAKSHI Administration Metoprolol Tartrate 25 mg 04/05/18 09:30 04/11/18 05:18 Lopressor - PO 25 mg TID SAKSHI Administration Pantoprazole Sodium 40 mg 04/08/18 10:00 04/11/18 10:21 Protonix - PO 40 mg BID SAKSHI Administration Sertraline HCl 50 mg 04/08/18 10:00 04/11/18 10:21 Zoloft - PO 50 mg DAILY SAKSHI Administration Torsemide 20 mg 04/11/18 10:30 04/11/18 11:27 Demadex - PO 20 mg DAILY SAKSHI Administration Warfarin Sodium 2 mg 04/09/18 18:00 04/10/18 18:01 Coumadin - PO 2 mg DAILY@1800 SAKSHI Administration 04/04: Renal ultrasound normal ASSESSMENT/PLAN: Patient is an 87 year old male with significant PMHx of distant CVA (residual left sided weakness) , afib on Warfarin 4 mg qhs, chronic left carotid occlusion , HTN, HLD, and hemorrhoids presents with rectal bleeding, diarrhea x2d. # Atrial fibrillation-rate controlled-coumadin resumed has subtherapeutic INR. INR:1.6, currently on coumadin 2mg, will increase to 3mg, repeat INR. No heparin drip or lovenox for subtherpeutic INR due to recent hx of GI bleed , pt is high risk of bleeding # Acute GI bleed-now resolved Patient refusing Colonoscopy/ENdoscopy. (HCP) understands the risk of starting on coumadin, will agree for colonoscopy if he has a GI bleed. # SIRS Blood cultures/urine cultures negative so off antibiotics. No signs of infection. # MELVIN likely prerenal: from hypotension- resolved # Increased troponins demand ischemia vs NSTEMI-trops downtrending. Troponin increased 0.07--> 1.1--> 3.88--> 4.5--. 3.2 continuous cardiac monitoring. # Hyperlipidemia Continue Statin 20mg HS # Hypertension-was hypotensive Continue Metoprolol 25mg TID. Resume Torsemide 20mg . Hold aldactone due to Hyperkalemia on admission. # Hyperkalemia now resolved # Chronic left carotid occlusion. # FEN Not on IVF, can tolerate PO. Electrolytes: Phosphorus repleted. Sodium controlled diet. # Prophylaxis For DVT: already on Coumadin For GI; Protonix 40mg BID # Code Status: Full Code # Dispo: Continue to monitor in Tele. Illness, investigation and Plan of care explained to the patient. He verbalized understanding. Case discussed with Dr. Garzon. Problem List - Problems (1) Acute kidney insufficiency Code(s): N28.9 - DISORDER OF KIDNEY AND URETER, UNSPECIFIED (2) Anemia Code(s): D64.9 - ANEMIA, UNSPECIFIED (3) GIB (gastrointestinal bleeding) Code(s): K92.2 - GASTROINTESTINAL HEMORRHAGE, UNSPECIFIED Qualifiers: GI bleed type/associated pathology: anorectal hemorrhage Qualified Code(s) : K62.5 - Hemorrhage of anus and rectum (4) Hyperkalemia Code(s): E87.5 - HYPERKALEMIA (5) Lactic acid acidosis Code(s): E87.2 - ACIDOSIS (6) Sepsis Code(s): A41.9 - SEPSIS, UNSPECIFIED ORGANISM (7) Supratherapeutic INR Code(s): R79.1 - ABNORMAL COAGULATION PROFILE (8) Warfarin toxicity Code(s): T45.511A - POISONING BY ANTICOAGULANTS, ACCIDENTAL, INIT Visit type - Emergency Visit Emergency Visit: Yes ED Registration Date: 04/03/18 Care time: The patient presented to the Emergency Department on the above date and was hospitalized for further evaluation of their emergent condition. - New Patient This patient is new to me today: No - Critical Care Critical Care patient: No - Discharge Referral Referred to [facility] Med P.C.: No
--- NOTE | 2018-04-11 14:42 | PN ---
Progress Note, Physician History of Present Illness: stable doing well no new issues - Current Medication List Current Medications: Active Medications Acetaminophen (Tylenol -) 650 mg PO Q6H PRN PRN Reason: Fever Last Admin: 04/08/18 22:13 Dose: 650 mg Atorvastatin Calcium (Lipitor -) 20 mg PO HS [facility] Last Admin: 04/10/18 21:53 Dose: 20 mg Latanoprost (Xalatan 0.005% Eye Drops -) 1 drop OU HS [facility] Last Admin: 04/10/18 21:53 Dose: 1 drop Metoprolol Tartrate (Lopressor -) 25 mg PO TID [facility] Last Admin: 04/11/18 05:18 Dose: 25 mg Pantoprazole Sodium (Protonix -) 40 mg PO BID [facility] Last Admin: 04/11/18 10:21 Dose: 40 mg Sertraline HCl (Zoloft -) 50 mg PO DAILY [facility] Last Admin: 04/11/18 10:21 Dose: 50 mg Torsemide (Demadex -) 20 mg PO DAILY [facility] Last Admin: 04/11/18 11:27 Dose: 20 mg Warfarin Sodium (Coumadin -) 2 mg PO DAILY@1800 [facility] Last Admin: 04/10/18 18:01 Dose: 2 mg - Objective Vital Signs: Vital Signs Temperature 97.9 F 04/11/18 09:10 Pulse Rate 68 04/11/18 12:20 Respiratory Rate 18 04/11/18 11:25 Blood Pressure 126/55 L 04/11/18 11:25 O2 Sat by Pulse Oximetry (%) 96 04/11/18 12:20 Constitutional: Yes: No Distress, Calm Neck: Yes: Supple Cardiovascular: Yes: Regular Rate and Rhythm Respiratory: Yes: Regular, CTA Bilaterally Musculoskeletal: Yes: WNL Extremities: Yes: WNL Neurological: Yes: Alert, Oriented Psychiatric: Yes: Alert, Oriented Labs: CBC, BMP 04/11/18 06:00 04/11/18 06:00 INR, PTT INR 1.60 (0.83-1.09) H 04/11/18 06:00 Assessment/Plan Problem List - Problems (1) GIB (gastrointestinal bleeding) Code(s): K92.2 - GASTROINTESTINAL HEMORRHAGE, UNSPECIFIED Qualifiers: GI bleed type/associated pathology: anorectal hemorrhage Qualified Code(s) : K62.5 - Hemorrhage of anus and rectum (2) Sepsis Code(s): A41.9 - SEPSIS, UNSPECIFIED ORGANISM (3) Lactic acid acidosis Code(s): E87.2 - ACIDOSIS (4) Warfarin toxicity Code(s): T45.511A - POISONING BY ANTICOAGULANTS, ACCIDENTAL, INIT (5) NSTEMI (non-ST elevated myocardial infarction) Code(s): I21.4 - NON-ST ELEVATION (NSTEMI) MYOCARDIAL INFARCTION (6) Acute kidney insufficiency Code(s): N28.9 - DISORDER OF KIDNEY AND URETER, UNSPECIFIED (7) Anemia Code(s): D64.9 - ANEMIA, UNSPECIFIED plan continue to monitor off of abx gi on case rest as per the team patient remaining stable
[2018-04-11] MEDS ORDERED: WARFARIN NA 3 MG TABLET PO SCH (18:00)
[2018-04-11] MEDS ORDERED: PT OWN MED DRAWER 7, Y5N ONE (21:05)
[2018-04-11] MEDS: ATORVASTATIN CA 20 MG TABLET (FP) PO SCH (21:16)
[2018-04-11] MEDS: LATANOPROST 0.005% OPHTH SOLN 2.5ML BOTTLE OU SCH (21:17)
[2018-04-12] MEDS: METOPROLOL TARTRATE 25 MG TABLET (FP) PO SCH ×3 (05:45→21:44)
[2018-04-12 06:24] LABS: HEMATOCRIT 29.1 % (35.4-49); HEMOGLOBIN 9.6 GM/dL (11.7-16.9); MCH 30.5 pg (25.7-33.7); MCHC 32.9 g/dl (32.0-35.9); MEAN CELL VOLUME 92.9 fl (80-96); MEAN PLT VOLUME 8.6 fl (7.5-11.1); PLATELET COUNT 194 K/MM3 (134-434); RBC 3.13 M/mm3 (4.00-5.60); RDW 16.5 % (11.9-15.9); WHITE BLOOD COUNT 5.3 K/mm3 (4.0-10.0)
[2018-04-12 06:35] LABS: INR 1.87 (0.83-1.09); PROTHROMBIN TIME (PATIENT) 22.2 SEC (9.7-13.0)
[2018-04-12 07:24] LABS: ANION GAP 2 MMOL/L (8-16); BLOOD UREA NITROGEN 19 mg/dL (7-18); CHLORIDE 106 mmol/L (98-107); CO2 32 mmol/L (21-32); CREATININE 1.3 mg/dL (0.55-1.3); GLUCOSE,RANDOM 109 mg/dL (74-106); MAGNESIUM 2.3 mg/dL (1.8-2.4); PHOSPHOROUS 2.1 mg/dL (2.5-4.9); POTASSIUM 4.4 mmol/L (3.5-5.1); SODIUM 140 mmol/L (136-145)
[2018-04-12] MEDS: PANTOPRAZOLE 40 MG TABLET (FP) PO SCH ×2 (09:09→21:43)
[2018-04-12] MEDS: SERTRALINE HCL 50 MG TABLET (FP) PO SCH (09:09)
[2018-04-12] MEDS: TORSEMIDE 20 MG TABLET (FP) PO SCH (09:09)
--- NOTE | 2018-04-12 10:33 | PN ---
Physical Exam: SUBJECTIVE: Patient seen and examined at bed side this morning. Sleeping but arousable. No acute overnight events. OBJECTIVE: Vital Signs Period Temp Pulse Resp BP Sys/Daniel Pulse Ox Last 24 Hr 97.5 F-98.5 F 68-82 16-20 100-126/48-69 96-97 GENERAL: Elderly male, sitting in bed comfortably, is awake, alert, and fully oriented, in no acute distress. HEAD: Normal with no signs of trauma. EYES: EOM intact, pallor +, no icterus. ENT: Ears normal, dry mucous membranes. NECK: Supple. LUNGS: Breath sounds equal, Crackles on the Left lung base, right lung clear. HEART: Regular rate and rhythm, S1, S2 without murmur. ABDOMEN: Soft, nontender, no organomegaly, BS +. EXTREMITIES: 2+ pulses, warm, well-perfused, no edema. NEUROLOGICAL: No facial droop, Normal speech, gait not observed. PSYCH: Normal mood, normal affect. SKIN: Warm, dry, normal turgor, no rashes or lesions noted Laboratory Results - last 24 hr 04/12/18 04/12/18 04/12/18 06:00 06:00 06:00 WBC 5.3 RBC 3.13 L Hgb 9.6 L Hct 29.1 L MCV 92.9 MCH 30.5 MCHC 32.9 RDW 16.5 H Plt Count 194 MPV 8.6 PT with INR 22.20 H INR 1.87 H Sodium 140 Potassium 4.4 Chloride 106 Carbon Dioxide 32 Anion Gap 2 L BUN 19 H Creatinine 1.3 Creat Clearance w eGFR 52.34 Random Glucose 109 H Calcium 8.0 L Phosphorus 2.1 L Magnesium 2.3 Active Medications Generic Name Dose Route Start Last Admin Trade Name Freq PRN Reason Stop Dose Admin Acetaminophen 650 mg 04/08/18 21:39 04/08/18 22:13 Tylenol - PO 650 mg Q6H PRN Administration Fever Atorvastatin Calcium 20 mg 04/05/18 22:00 04/11/18 21:16 Lipitor - PO 20 mg HS SAKSHI Administration Latanoprost 1 drop 04/05/18 22:00 04/11/18 21:17 Xalatan 0.005% Eye Drops - OU 1 drop HS SAKSHI Administration Metoprolol Tartrate 25 mg 04/05/18 09:30 04/12/18 05:45 Lopressor - PO 25 mg TID SAKSHI Administration Pantoprazole Sodium 40 mg 04/08/18 10:00 04/12/18 09:09 Protonix - PO 40 mg BID SAKSHI Administration Sertraline HCl 50 mg 04/08/18 10:00 04/12/18 09:09 Zoloft - PO 50 mg DAILY SAK[facility]I Administration Torsemide 20 mg 04/11/18 10:30 04/12/18 09:09 Demadex - PO 20 mg DAILY [facility] Administration Warfarin Sodium 2 mg 04/12/18 18:00 Coumadin - PO DAILY@1800 [facility] 04/04: Renal ultrasound normal ASSESSMENT/PLAN: Patient is an 87 year old male with significant PMHx of distant CVA (residual left sided weakness) , afib on Warfarin 4 mg qhs, chronic left carotid occlusion , HTN, HLD, and hemorrhoids presents with rectal bleeding, diarrhea x2d. # Atrial fibrillation-rate controlled-coumadin resumed has subtherapeutic INR. INR:1.6 was given 3mg of Warfarin yesterday 04/11/18, will continue to give 2mg today and increase if needed. Repeat INR in AM. No heparin drip or lovenox for subtherpeutic INR due to recent hx of GI bleed , pt is high risk of bleeding # Acute GI bleed-now resolved Patient refusing Colonoscopy/ENdoscopy. (HCP) understands the risk of starting on coumadin, will agree for colonoscopy if he has a GI bleed. # SIRS Blood cultures/urine cultures negative so off antibiotics. No signs of infection. # MELVIN likely prerenal: from hypotension- resolved # Increased troponins demand ischemia vs NSTEMI-trops downtrending. continuous cardiac monitoring. # Hyperlipidemia Continue Statin 20mg HS # Hypertension-controlled. Continue Metoprolol 25mg TID. Resume Torsemide 20mg . Hold aldactone due to Hyperkalemia on admission. # Hyperkalemia now resolved # Chronic left carotid occlusion. # FEN Not on IVF, can tolerate PO. Electrolytes: Phosphorus repleted. Sodium controlled diet. # Prophylaxis For DVT: already on Coumadin For GI; Protonix 40mg BID # Code Status: Full Code # Dispo: Continue to monitor in Tele. Illness, investigation and Plan of care explained to the patient. He verbalized understanding. Case discussed with Dr. Garzon. Problem List - Problems (1) Acute kidney insufficiency Code(s): N28.9 - DISORDER OF KIDNEY AND URETER, UNSPECIFIED (2) Anemia Code(s): D64.9 - ANEMIA, UNSPECIFIED (3) GIB (gastrointestinal bleeding) Code(s): K92.2 - GASTROINTESTINAL HEMORRHAGE, UNSPECIFIED Qualifiers: GI bleed type/associated pathology: anorectal hemorrhage Qualified Code(s) : K62.5 - Hemorrhage of anus and rectum (4) Hyperkalemia Code(s): E87.5 - HYPERKALEMIA (5) Lactic acid acidosis Code(s): E87.2 - ACIDOSIS (6) Sepsis Code(s): A41.9 - SEPSIS, UNSPECIFIED ORGANISM (7) Supratherapeutic INR Code(s): R79.1 - ABNORMAL COAGULATION PROFILE (8) Warfarin toxicity Code(s): T45.511A - POISONING BY ANTICOAGULANTS, ACCIDENTAL, INIT Visit type - Emergency Visit Emergency Visit: Yes ED Registration Date: 04/03/18 Care time: The patient presented to the Emergency Department on the above date and was hospitalized for further evaluation of their emergent condition. - New Patient This patient is new to me today: No - Critical Care Critical Care patient: No - Discharge Referral Referred to [facility] Med P.C.: No
--- NOTE | 2018-04-12 11:52 | PN ---
Teaching Attending Note Name of Resident: Alejandra Salter ATTENDING PHYSICIAN STATEMENT I saw and evaluated the patient. I reviewed the resident's note and discussed the case with the resident. I agree with the resident's findings and plan as documented with exceptions below. SUBJECTIVE: Patient seen and examined. no complaints, doing well. OBJECTIVE: Vital Signs Period Temp Pulse Resp BP Sys/Daniel Pulse Ox Last 24 Hr 97.5 F-98.5 F 68-82 16-20 100-124/48-69 96-97 Intake & Output 04/09/18 04/10/18 04/11/18 04/12/18 23:59 23:59 23:59 23:59 Intake Total 200 100 290 100 Output Total 150 400 475 Balance 50 -300 -185 100 General: sitting in bed in no acute distress Chest; good air entry bilaterally, no rales or wheezing Abdomen:Soft, NT, ND Extremities: no edema, SCDs in place Home Medications Medication Instructions Recorded Atorvastatin Ca [Lipitor] 20 mg PO DAILY 04/03/18 Diltiazem [Cardizem -] 120 mg PO DAILY 04/03/18 Latanoprost/Pf [Latanoprost 0.005% 1 drop OU HS 04/03/18 Eye Drop] Sertraline HCl [Zoloft -] 50 mg PO DAILY 04/03/18 Spironolactone [Aldactone] 25 mg PO DAILY 04/03/18 Torsemide [Demadex -] 20 mg PO BID 04/03/18 Warfarin Sodium 4 mg PO HS 04/03/18 Active Medications Acetaminophen (Tylenol -) 650 mg PO Q6H PRN PRN Reason: Fever Last Admin: 04/08/18 22:13 Dose: 650 mg Atorvastatin Calcium (Lipitor -) 20 mg PO HS [facility] Last Admin: 04/11/18 21:16 Dose: 20 mg Latanoprost (Xalatan 0.005% Eye Drops -) 1 drop OU HS [facility] Last Admin: 04/11/18 21:17 Dose: 1 drop Metoprolol Tartrate (Lopressor -) 25 mg PO TID [facility] Last Admin: 04/12/18 05:45 Dose: 25 mg Pantoprazole Sodium (Protonix -) 40 mg PO BID [facility] Last Admin: 04/12/18 09:09 Dose: 40 mg Sertraline HCl (Zoloft -) 50 mg PO DAILY [facility] Last Admin: 04/12/18 09:09 Dose: 50 mg Torsemide (Demadex -) 20 mg PO DAILY [facility] Last Admin: 04/12/18 09:09 Dose: 20 mg Warfarin Sodium (Coumadin -) 2 mg PO DAILY@1800 [facility] Laboratory Results - last 24 hr 04/12/18 04/12/18 04/12/18 06:00 06:00 06:00 WBC 5.3 RBC 3.13 L Hgb 9.6 L Hct 29.1 L MCV 92.9 MCH 30.5 MCHC 32.9 RDW 16.5 H Plt Count 194 MPV 8.6 PT with INR 22.20 H INR 1.87 H Sodium 140 Potassium 4.4 Chloride 106 Carbon Dioxide 32 Anion Gap 2 L BUN 19 H Creatinine 1.3 Creat Clearance w eGFR 52.34 Random Glucose 109 H Calcium 8.0 L Phosphorus 2.1 L Magnesium 2.3 ASSESSMENT AND PLAN: 87 year old male with significant PMHx of distant CVA (residual left sided weakness), atrial fibrillation on Warfarin 4 mg qhs, chronic left carotid occlusion, HTN, HLD, and hemorrhoids presents with rectal bleeding, diarrhea like x2d, supratherapeutic INR, with hemodynamic instability (hypotension/ tachycardia) requiring ICU admission s/p 2units PRBC/1 unit FFP/vitamin K, also elevated troponin. -Acute GI bleed with hemodynamic instability (hypotension/tachycardia), diverticular vs haemorrhagic vs ischemic colitis, low suspicion for Upper GI bleed based on presentation -Supratherapeutic INR -Elevated troponin, suspect Demand type II NSTEMI from above, suspicious for underlying ischemic heart disease (EKG and 2D echo suggestive of inferolateral ischemia) -MELVIN, suspect from hypotension/GI Bleed -HYPotension from GI bleed, resolved -Hyperkalemia 6.8 on admission, resolved, suspect from MELVIN -Chronic left carotid occlusion -HTN -HLD -Haemorrhoids. Plan: s/p 2units PRBC, 1 unit FFP and 5 mg Vitamin K. H/h and hemodynamics stable. Protonix 40 mg PO BID. No further dark or bloody stools. Cardiology/gastroenterology input noted. Patient adamantly declines endoscopy, multiple discussions by multiple providers. Cardiology input noted. h/h and hemodynamics stable, no further evidence of bleed, Rebleeding risk on warfarin discussed by Dr. Rizo with patient and who relay understanding and will consider colonoscopy if rebleed. Agreable to warfarin for now. Warfarin started at 2 mg daily on 04/08, INR rising. Discussed with Dr. Dunlap, risks of bridging with heparin higher currently, will continue coumadin and let INR rise slowly while watching for GI bleed. Resumed torsemide at 20 mg daily, titrate up to home dose as tolerated. Continue to hold Aldactone. (hyperkalemia/MELVIN on admission, K 5 today) Metoprolol for rate control. Nephrology input noted. renal function improved. Continue sertraline. Encourage OOB, home oxygen needs assessment. PT eval noted, patient and family reportedly decline SNF DVTPPX SCDs dispo plan for d/c home with services when INR 2-3 if no concerns. Plan discussed with patient and nursing, all questions answered.
--- NOTE | 2018-04-12 12:30 | PN ---
Progress Note (short form) - Note Progress Note: Chief Complaint: lgib History of Present Illness: feels well. no chest pain, palps, dizziness, lightheadednes, GI bleeding, melena Current Medications Acetaminophen (Tylenol -) 650 mg PO Q6H PRN PRN Reason: Fever Last Admin: 04/08/18 22:13 Dose: 650 mg Atorvastatin Calcium (Lipitor -) 20 mg PO [facility] Last Admin: 04/11/18 21:16 Dose: 20 mg Latanoprost (Xalatan 0.005% Eye Drops -) 1 drop OU HS [facility] Last Admin: 04/11/18 21:17 Dose: 1 drop Metoprolol Tartrate (Lopressor -) 25 mg PO TID [facility] Last Admin: 04/12/18 05:45 Dose: 25 mg Pantoprazole Sodium (Protonix -) 40 mg PO BID [facility] Last Admin: 04/12/18 09:09 Dose: 40 mg Sertraline HCl (Zoloft -) 50 mg PO DAILY [facility] Last Admin: 04/12/18 09:09 Dose: 50 mg Torsemide (Demadex -) 20 mg PO DAILY [facility] Last Admin: 04/12/18 09:09 Dose: 20 mg Warfarin Sodium (Coumadin -) 2 mg PO DAILY@1800 [facility] - Objective Vital Signs Period Temp Pulse Resp BP Sys/Daniel Pulse Ox Last 24 Hr 97.4 F-98.5 F 75-84 16-20 100-124/48-69 96-97 Constitutional: Yes: No Distress, Calm Eyes: No: Sclera Icterus HENT: No: Nasal Congestion Cardiovascular: Yes: Pulse Irregular, S1, S2, Other (PMI non diplaced). No: JVD , Gallop, Murmur Respiratory: Yes: CTA Bilaterally. No: Accessory Muscle Use, Rales, Wheezes Gastrointestinal: Yes: Normal Bowel Sounds, Soft. No: Tenderness Musculoskeletal: Yes: Other (No kyphosis) Extremities: No: Cyanosis Edema: No Integumentary: No: Jaundice Neurological: Yes: Alert, Oriented (x3) Psychiatric: No: Agitated Assessment/Plan EKG 04/03 (19:17): poor baseline, prob fib/flutter. HR 106. 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 nonsp ST-Ts I/avL EKG 04/04: afib, more pronounced STs lateral leads ECG 04/05: afib, no change vs 04/04 CXR: clear lungs/pleura Echo 03/22: nl LV size. mild decr EF (45-50%). RWMA tds. inferolateral wall appears mildly HK. nl RV. mild TR. PASP at least 49. tele: afib, rate controlled a/p: LGIB, preop CV eval for FOC and/or EGD: -per GI -INR was high (>5), warfarin reversed with vit K -he declined GIB workup Afib: -rapid HR initially due to active bleeding with hypotension, improving with improved hemodynamics -low BP limits AVN blocking med options. low GFR risk for digoxin -tolerating moderate dose lopressor with soft but stable bp's, HRs reasonable-- stable on tele, continue same dose -h/o CVA, hi CHADS VASC score. -was on warfarin at home. INR >5 here, GIB--AC held. No further melena/rectal bleeding and hgb stable. Pt refuses GIB w/u. - warfarin has been resumed with plan to monitor INR closely and hope for preventing bleeding if can be maintained more consistently in 2-3 range. -pt is high risk for CVA if AC is permanently discontinued. he is also high risk for adverse CV outcome if has severe bleeding (based on the presentation this time). he was seeing Dr. Cardenas previously for cardio, has not returned recently (Dr. Cardenas has left the area). Pt was advised he will need to d/w Dr. Holley to arrange close INR f/u and ongoing cardio care as outpt (dr holley informed of plan as well) NSTEMI: -trop peaked 4.5, now downtrending -likely secondary to acute hypotension/tachy, i.e. deman ischemia/Type II DC -ECG's stable -echo with mild decr EF, ? regional per report (TDS regional wall motion) -not a candidate for anti-PLTs, AC or invasive interventions regardless given his GIB of unknown source and pt refusing GI eval. -cont BB, HR control as doing. statin. -remains asymptomatic -pt is refusing further testing-- per Dr. Dunlap: d/w'd pt and concern over underyling chronic, stable CAD and cannot say if hi risk or not without further imaging. rec'd pharm MPI for risk stratification. he is very aggravated at prolonged hosp stay and wishes to defer this until can d/w dr holley as outpt. low risk clinically given never had signs of ACS and no ischemic sx's here. d/w' d dr holley who will arrange outpt cardio f/u MELVIN: -baseline creat 1.1 in 02/20 -initial creat 2.4, coming down with IVF pulm HTN: -at least mild-mod pulm HTN on echo here, possibly high left sided filling pressures due to acute ischemia/rapid AF -outpt f/u HTN: -stable HPL, h/o carotid dz: -cont home atorva
[2018-04-12] MEDS ORDERED: NAPH,MB-DB/K PH,MBDB POWDER PACKET PO ONE (14:30)
[2018-04-12] MEDS ORDERED: WARFARIN NA 2 MG TABLET (UD) PO SCH (18:00)
[2018-04-12] MEDS ORDERED: PT OWN MED DRAWER 7, Y5N ONE (21:12)
[2018-04-12] MEDS: LATANOPROST 0.005% OPHTH SOLN 2.5ML BOTTLE OU SCH (21:44)
[2018-04-12] MEDS: ATORVASTATIN CA 20 MG TABLET (FP) PO SCH (21:44)
[2018-04-13] MEDS: METOPROLOL TARTRATE 25 MG TABLET (FP) PO SCH ×3 (05:54→22:08)
[2018-04-13 06:11] LABS: BASO % 1.1 % (0-2.0); EOS % 1.7 % (0-4.5); HEMATOCRIT 30.3 % (35.4-49); HEMOGLOBIN 9.8 GM/dL (11.7-16.9); LYMPH % 11.9 % (8-40); MCHC 32.3 g/dl (32.0-35.9); MEAN CELL VOLUME 92.8 fl (80-96); MEAN PLT VOLUME 8.7 fl (7.5-11.1); NEUT % 78.3 % (42.8-82.8); PLATELET COUNT 194 K/MM3 (134-434); RBC 3.26 M/mm3 (4.00-5.60); RDW 16.7 % (11.9-15.9); WHITE BLOOD COUNT 5.3 K/mm3 (4.0-10.0)
[2018-04-13 06:25] LABS: INR 1.82 (0.83-1.09); PROTHROMBIN TIME (PATIENT) 21.6 SEC (9.7-13.0)
[2018-04-13 06:37] LABS: ANION GAP 2 MMOL/L (8-16); BLOOD UREA NITROGEN 21 mg/dL (7-18); CALCIUM 8.2 mg/dL (8.5-10.1); CHLORIDE 104 mmol/L (98-107); CO2 34 mmol/L (21-32); CREATININE 1.3 mg/dL (0.55-1.3); GLUCOSE,RANDOM 110 mg/dL (74-106); MAGNESIUM 2.2 mg/dL (1.8-2.4); PHOSPHOROUS 2.5 mg/dL (2.5-4.9); POTASSIUM 4.1 mmol/L (3.5-5.1); SODIUM 141 mmol/L (136-145)
--- NOTE | 2018-04-13 09:21 | PN ---
Physical Exam: SUBJECTIVE: Patient seen and examined at bed side. States he doesn't want to talk about his medical problems and asking to speak with his who will come to the hospital at 2 pm today. No acute overnight events. OBJECTIVE: Vital Signs Period Temp Pulse Resp BP Sys/Daniel Pulse Ox Last 24 Hr 97.8 F-98.4 F 68-90 18-20 96-125/49-83 97 GENERAL: Elderly male, sitting in bed comfortably, is awake, alert, and fully oriented, in no acute distress. EYES: EOM intact, pallor +, no icterus, puffy eyes + ENT: Ears normal, dry mucous membranes. NECK: Supple. LUNGS: Breath sounds equal, no crackles ro wheeze. HEART: Regular rate and rhythm, S1, S2 without murmur. ABDOMEN: Soft, nontender, no organomegaly, BS +. EXTREMITIES: 2+ pulses, warm, well-perfused, no edema. NEUROLOGICAL: No facial droop, Normal speech, gait not observed. PSYCH: Normal mood, normal affect. SKIN: Warm, dry, normal turgor, no rashes or lesions noted Laboratory Results - last 24 hr 04/13/18 04/13/18 04/13/18 06:00 06:00 06:00 WBC 5.3 RBC 3.26 L Hgb 9.8 L Hct 30.3 L MCV 92.8 MCH 30.0 MCHC 32.3 RDW 16.7 H Plt Count 194 MPV 8.7 Absolute Neuts (auto) 4.2 Neutrophils % 78.3 Lymphocytes % 11.9 D Monocytes % 7.0 Eosinophils % 1.7 Basophils % 1.1 Nucleated RBC % 0 PT with INR 21.60 H INR 1.82 H Sodium 141 Potassium 4.1 Chloride 104 Carbon Dioxide 34 H Anion Gap 2 L BUN 21 H Creatinine 1.3 Creat Clearance w eGFR 52.34 Random Glucose 110 H Calcium 8.2 L Phosphorus 2.5 Magnesium 2.2 Active Medications Generic Name Dose Route Start Last Admin Trade Name Freq PRN Reason Stop Dose Admin Acetaminophen 650 mg 04/08/18 21:39 04/08/18 22:13 Tylenol - PO 650 mg Q6H PRN Administration Fever Atorvastatin Calcium 20 mg 04/05/18 22:00 04/12/18 21:44 Lipitor - PO 20 mg HS [facility] Administration Latanoprost 1 drop 04/05/18 22:00 04/12/18 21:44 Xalatan 0.005% Eye Drops - OU 1 drop HS [facility] Administration Metoprolol Tartrate 25 mg 04/05/18 09:30 04/13/18 05:54 Lopressor - PO 25 mg TID [facility] Administration Pantoprazole Sodium 40 mg 04/08/18 10:00 04/12/18 21:43 Protonix - PO 40 mg BID [facility] Administration Sertraline HCl 50 mg 04/08/18 10:00 04/12/18 09:09 Zoloft - PO 50 mg DAILY [facility] Administration Torsemide 20 mg 04/11/18 10:30 04/12/18 09:09 Demadex - PO 20 mg DAILY [facility] Administration Warfarin Sodium 2 mg 04/12/18 18:00 04/12/18 17:47 Coumadin - PO 2 mg DAILY@1800 [facility] Administration 04/04: Renal ultrasound normal ASSESSMENT/PLAN: Patient is an 87 year old male with significant PMHx of distant CVA (residual left sided weakness) , afib on Warfarin 4 mg qhs, chronic left carotid occlusion , HTN, HLD, and hemorrhoids presents with rectal bleeding, diarrhea x2d. # Atrial fibrillation-rate controlled-coumadin resumed has subtherapeutic INR. INR:1.82 warfarin increased to 3mg today. Will repeat INR in AM No heparin drip or lovenox for subtherpeutic INR due to recent hx of GI bleed , pt is high risk of bleeding # Acute GI bleed-now resolved Patient refusing Colonoscopy/ENdoscopy. (HCP) understands the risk of starting on coumadin, will agree for colonoscopy if he has a GI bleed. Dr. Rizo also spoke with the and is aware. # SIRS Blood cultures/urine cultures negative so off antibiotics. No signs of infection. # Normocytic anemia: H/H Stable. # MELVIN likely prerenal: from hypotension- resolved # Increased troponins demand ischemia vs NSTEMI-trops downtrending. continuous cardiac monitoring. # Hyperlipidemia Continue Statin 20mg HS # Hypertension-controlled. Continue Metoprolol 25mg TID. Resume Torsemide 20mg . Hold aldactone due to Hyperkalemia on admission. # Hyperkalemia now resolved # Chronic left carotid occlusion. # FEN Not on IVF, can tolerate PO. Electrolytes: Phosphorus repleted. Sodium controlled diet. # Prophylaxis For DVT: already on Coumadin For GI; Protonix 40mg BID # Code Status: Full Code # Dispo: Continue to monitor in Tele. Illness, investigation and Plan of care explained to the patient. He verbalized understanding. Case discussed with Dr. Garcia. Problem List - Problems (1) Acute kidney insufficiency Code(s): N28.9 - DISORDER OF KIDNEY AND URETER, UNSPECIFIED (2) Anemia Code(s): D64.9 - ANEMIA, UNSPECIFIED (3) GIB (gastrointestinal bleeding) Code(s): K92.2 - GASTROINTESTINAL HEMORRHAGE, UNSPECIFIED Qualifiers: GI bleed type/associated pathology: anorectal hemorrhage Qualified Code(s) : K62.5 - Hemorrhage of anus and rectum (4) Hyperkalemia Code(s): E87.5 - HYPERKALEMIA (5) Lactic acid acidosis Code(s): E87.2 - ACIDOSIS (6) Sepsis Code(s): A41.9 - SEPSIS, UNSPECIFIED ORGANISM (7) Supratherapeutic INR Code(s): R79.1 - ABNORMAL COAGULATION PROFILE (8) Warfarin toxicity Code(s): T45.511A - POISONING BY ANTICOAGULANTS, ACCIDENTAL, INIT Visit type - Emergency Visit Emergency Visit: Yes ED Registration Date: 04/03/18 Care time: The patient presented to the Emergency Department on the above date and was hospitalized for further evaluation of their emergent condition. - New Patient This patient is new to me today: No - Critical Care Critical Care patient: No - Discharge Referral Referred to [facility] Med P.C.: No
[2018-04-13] MEDS: PANTOPRAZOLE 40 MG TABLET (FP) PO SCH ×2 (10:35→22:08)
[2018-04-13] MEDS: SERTRALINE HCL 50 MG TABLET (FP) PO SCH (10:35)
[2018-04-13] MEDS: TORSEMIDE 20 MG TABLET (FP) PO SCH (10:35)
--- NOTE | 2018-04-13 11:18 | PN ---
Teaching Attending Note Name of Resident: Alejandra Salter ATTENDING PHYSICIAN STATEMENT I saw and evaluated the patient. I reviewed the resident's note and discussed the case with the resident. I agree with the resident's findings and plan as documented. SUBJECTIVE: Mr Upton is without physical complaint. No cp, sob, n/v. In general upset about being bothered by so many physicians, lab draws in the morning, being seen by PT, etc. OBJECTIVE: Last Vital Signs Temp Pulse Resp BP Pulse Ox 36.2 C L 88 18 126/96 94 L 04/13/18 10:00 04/13/18 10:00 04/13/18 10:00 04/13/18 10:00 04/13/18 09:00 Gen: nad Pulm: ctab w/o w/r/r CV: irreg irreg, rate controlled, no m/r/g Abd: +bs, s/nt/nd Ext: no c/c/e CBC, BMP 04/13/18 06:00 04/13/18 06:00 ASSESSMENT AND PLAN: (1) GIB (gastrointestinal bleeding) Assessment/Plan: -resolved Code(s): K92.2 - GASTROINTESTINAL HEMORRHAGE, UNSPECIFIED Qualifiers: GI bleed type/associated pathology: anorectal hemorrhage Qualified Code(s) : K62.5 - Hemorrhage of anus and rectum (2) Sepsis Assessment/Plan: -resolved Code(s): A41.9 - SEPSIS, UNSPECIFIED ORGANISM (3) Lactic acid acidosis Assessment/Plan: -resolved Code(s): E87.2 - ACIDOSIS (4) Warfarin toxicity Assessment/Plan: -now subtherapeutic -continue coumadin -increase to 3mg daily -will need to remain hospitalized until therapeutic and not bleeding Code(s): T45.511A - POISONING BY ANTICOAGULANTS, ACCIDENTAL, INIT (5) NSTEMI (non-ST elevated myocardial infarction) Assessment/Plan: -case d/w cardiology -medical management Code(s): I21.4 - NON-ST ELEVATION (NSTEMI) MYOCARDIAL INFARCTION (6) Acute kidney insufficiency Assessment/Plan: -resolved Code(s): N28.9 - DISORDER OF KIDNEY AND URETER, UNSPECIFIED (7) Anemia Assessment/Plan: -stable Code(s): D64.9 - ANEMIA, UNSPECIFIED Problem List - Problems (1) GIB (gastrointestinal bleeding) Code(s): K92.2 - GASTROINTESTINAL HEMORRHAGE, UNSPECIFIED Qualifiers: GI bleed type/associated pathology: anorectal hemorrhage Qualified Code(s) : K62.5 - Hemorrhage of anus and rectum (2) Sepsis Code(s): A41.9 - SEPSIS, UNSPECIFIED ORGANISM (3) Lactic acid acidosis Code(s): E87.2 - ACIDOSIS (4) Warfarin toxicity Code(s): T45.511A - POISONING BY ANTICOAGULANTS, ACCIDENTAL, INIT (5) NSTEMI (non-ST elevated myocardial infarction) Code(s): I21.4 - NON-ST ELEVATION (NSTEMI) MYOCARDIAL INFARCTION (6) Acute kidney insufficiency Code(s): N28.9 - DISORDER OF KIDNEY AND URETER, UNSPECIFIED (7) Anemia Code(s): D64.9 - ANEMIA, UNSPECIFIED
--- NOTE | 2018-04-13 11:44 | PN ---
Progress Note (short form) - Note Progress Note: Chief Complaint: lgib History of Present Illness: feels well. Current Medications Acetaminophen (Tylenol -) 650 mg PO Q6H PRN PRN Reason: Fever Last Admin: 04/08/18 22:13 Dose: 650 mg Atorvastatin Calcium (Lipitor -) 20 mg PO HS [facility] Last Admin: 04/12/18 21:44 Dose: 20 mg Latanoprost (Xalatan 0.005% Eye Drops -) 1 drop OU HS [facility] Last Admin: 04/12/18 21:44 Dose: 1 drop Metoprolol Tartrate (Lopressor -) 25 mg PO TID [facility] Last Admin: 04/13/18 05:54 Dose: 25 mg Pantoprazole Sodium (Protonix -) 40 mg PO BID [facility] Last Admin: 04/13/18 10:35 Dose: 40 mg Sertraline HCl (Zoloft -) 50 mg PO DAILY [facility] Last Admin: 04/13/18 10:35 Dose: 50 mg Torsemide (Demadex -) 20 mg PO DAILY [facility] Last Admin: 04/13/18 10:35 Dose: 20 mg Warfarin Sodium (Coumadin -) 3 mg PO DAILY@1800 [facility] - Objective Vital Signs Period Temp Pulse Resp BP Sys/Daniel Pulse Ox Last 24 Hr 97.2 F-98.4 F 68-90 18-20 96-126/49-96 97 Constitutional: Yes: No Distress, Calm Eyes: No: Sclera Icterus HENT: No: Nasal Congestion Cardiovascular: Yes: Pulse Irregular, S1, S2, Other (PMI non diplaced). No: JVD , Gallop, Murmur Respiratory: Yes: CTA Bilaterally. No: Accessory Muscle Use, Rales, Wheezes Gastrointestinal: Yes: Normal Bowel Sounds, Soft. No: Tenderness Musculoskeletal: Yes: Other (No kyphosis) Extremities: No: Cyanosis Edema: No Integumentary: No: Jaundice Neurological: Yes: Alert, Oriented (x3) Psychiatric: No: Agitated Assessment/Plan EKG 04/03 (19:17): poor baseline, prob fib/flutter. HR 106. 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 nonsp ST-Ts I/avL EKG 04/04: afib, more pronounced STs lateral leads ECG 04/05: afib, no change vs 04/04 CXR: clear lungs/pleura Echo 03/22: nl LV size. mild decr EF (45-50%). RWMA tds. inferolateral wall appears mildly HK. nl RV. mild TR. PASP at least 49. tele: afib, rate controlled a/p: LGIB, preop CV eval for FOC and/or EGD: -per GI -INR was high (>5), warfarin reversed with vit K -he declined GIB workup Afib: -rapid HR initially due to active bleeding with hypotension, improving with improved hemodynamics -low BP limits AVN blocking med options. low GFR risk for digoxin -tolerating moderate dose lopressor with soft but stable bp's, HRs reasonable-- stable on tele, continue same dose -h/o CVA, hi CHADS VASC score. -was on warfarin at home. INR >5 here, GIB--AC held. No further melena/rectal bleeding and hgb stable. Pt refuses GIB w/u. - warfarin has been resumed with plan to monitor INR closely and hope for preventing bleeding if can be maintained more consistently in 2-3 range. -pt is high risk for CVA if AC is permanently discontinued. he is also high risk for adverse CV outcome if has severe bleeding (based on the presentation this time). he was seeing Dr. Cardenas previously for cardio, has not returned recently (Dr. Cardenas has left the area). Pt was advised he will need to d/w Dr. Holley to arrange close INR f/u and ongoing cardio care as outpt (dr holley informed of plan as well - cont wafarin, close followup of INR, goal 2-3 NSTEMI: -trop peaked 4.5, now downtrending -likely secondary to acute hypotension/tachy, i.e. deman ischemia/Type II NE -ECG's stable -echo with mild decr EF, ? regional per report (TDS regional wall motion) -not a candidate for anti-PLTs, AC or invasive interventions regardless given his GIB of unknown source and pt refusing GI eval. -cont BB, HR control as doing. statin. -remains asymptomatic -pt is refusing further testing-- per Dr. Dunlap: d/w'd pt and concern over underyling chronic, stable CAD and cannot say if hi risk or not without further imaging. rec'd pharm MPI for risk stratification. he is very aggravated at prolonged hosp stay and wishes to defer this until can d/w dr holley as outpt. low risk clinically given never had signs of ACS and no ischemic sx's here. d/w' d dr holley who will arrange outpt cardio f/u MELVIN: -baseline creat 1.1 in 02/20 -initial creat 2.4, coming down with IVF pulm HTN: -at least mild-mod pulm HTN on echo here, possibly high left sided filling pressures due to acute ischemia/rapid AF -outpt f/u HTN: -stable HPL, h/o carotid dz: -cont home atorva
--- NOTE | 2018-04-13 13:39 | PN ---
Progress Note, Physician History of Present Illness: stable doing well no new issues no further bleeding inr being adjusted - Current Medication List Current Medications: Active Medications Acetaminophen (Tylenol -) 650 mg PO Q6H PRN PRN Reason: Fever Last Admin: 04/08/18 22:13 Dose: 650 mg Atorvastatin Calcium (Lipitor -) 20 mg PO [facility] Last Admin: 04/12/18 21:44 Dose: 20 mg Latanoprost (Xalatan 0.005% Eye Drops -) 1 drop OU [facility] Last Admin: 04/12/18 21:44 Dose: 1 drop Metoprolol Tartrate (Lopressor -) 25 mg PO TID [facility] Last Admin: 04/13/18 05:54 Dose: 25 mg Pantoprazole Sodium (Protonix -) 40 mg PO BID [facility] Last Admin: 04/13/18 10:35 Dose: 40 mg Sertraline HCl (Zoloft -) 50 mg PO DAILY [facility] Last Admin: 04/13/18 10:35 Dose: 50 mg Torsemide (Demadex -) 20 mg PO DAILY [facility] Last Admin: 04/13/18 10:35 Dose: 20 mg Warfarin Sodium (Coumadin -) 3 mg PO DAILY@1800 [facility] - Objective Vital Signs: Vital Signs Temperature 97.2 F L 04/13/18 10:00 Pulse Rate 88 04/13/18 10:00 Respiratory Rate 18 04/13/18 10:00 Blood Pressure 126/96 04/13/18 10:00 O2 Sat by Pulse Oximetry (%) 94 L 04/13/18 09:00 Constitutional: Yes: No Distress, Calm Cardiovascular: Yes: Pulse Irregular Respiratory: Yes: Regular, CTA Bilaterally Gastrointestinal: Yes: Normal Bowel Sounds, Soft Musculoskeletal: Yes: WNL Extremities: Yes: WNL Neurological: Yes: Alert, Oriented Psychiatric: Yes: Alert, Oriented Labs: CBC, BMP 04/13/18 06:00 04/13/18 06:00 INR, PTT INR 1.82 (0.83-1.09) H 04/13/18 06:00 Assessment/Plan Problem List - Problems (1) GIB (gastrointestinal bleeding) Code(s): K92.2 - GASTROINTESTINAL HEMORRHAGE, UNSPECIFIED Qualifiers: GI bleed type/associated pathology: anorectal hemorrhage Qualified Code(s) : K62.5 - Hemorrhage of anus and rectum (2) Sepsis Code(s): A41.9 - SEPSIS, UNSPECIFIED ORGANISM (3) Lactic acid acidosis Code(s): E87.2 - ACIDOSIS (4) Warfarin toxicity Code(s): T45.511A - POISONING BY ANTICOAGULANTS, ACCIDENTAL, INIT (5) NSTEMI (non-ST elevated myocardial infarction) Code(s): I21.4 - NON-ST ELEVATION (NSTEMI) MYOCARDIAL INFARCTION (6) Acute kidney insufficiency Code(s): N28.9 - DISORDER OF KIDNEY AND URETER, UNSPECIFIED (7) Anemia Code(s): D64.9 - ANEMIA, UNSPECIFIED plan continue current mgmt monitor of of abx monitor h and inr rest as per the team
[2018-04-13] MEDS: WARFARIN NA 3 MG TABLET PO SCH (17:12)
[2018-04-13] MEDS ORDERED: PT OWN MED DRAWER 7, Y5N ONE (22:06)
[2018-04-13] MEDS: LATANOPROST 0.005% OPHTH SOLN 2.5ML BOTTLE OU SCH (22:08)
[2018-04-13] MEDS: ATORVASTATIN CA 20 MG TABLET (FP) PO SCH (22:08)
[2018-04-14] MEDS: METOPROLOL TARTRATE 25 MG TABLET (FP) PO SCH ×3 (05:26→22:03)
[2018-04-14 06:32] LABS: INR 1.86 (0.83-1.09); PROTHROMBIN TIME (PATIENT) 22.1 SEC (9.7-13.0)
[2018-04-14 06:36] LABS: ANION GAP 6 MMOL/L (8-16); BLOOD UREA NITROGEN 22 mg/dL (7-18); CALCIUM 8.3 mg/dL (8.5-10.1); CHLORIDE 103 mmol/L (98-107); CO2 32 mmol/L (21-32); CREATININE 1.4 mg/dL (0.55-1.3); GLUCOSE,RANDOM 102 mg/dL (74-106); POTASSIUM 4.1 mmol/L (3.5-5.1); SODIUM 140 mmol/L (136-145)
--- NOTE | 2018-04-14 09:37 | PN ---
Physical Exam: SUBJECTIVE: Patient seen and examined at bed side this morning. Upset that his bed is not fixed. Otherwise he is fine. ROS negative. No acute overnight events. OBJECTIVE: Vital Signs Period Temp Pulse Resp BP Sys/Daniel Pulse Ox Last 24 Hr 97.2 F-98.1 F 71-88 18-20 76-126/38-96 94 GENERAL: Elderly male, sitting in bed comfortably, is awake, alert, and fully oriented, in no acute distress. EYES: EOM intact, pallor +, no icterus, puffy eyes + ENT: Ears normal, dry mucous membranes. NECK: Supple. LUNGS: Breath sounds equal, no crackles ro wheeze. HEART: Regular rate and rhythm, S1, S2 without murmur. ABDOMEN: Soft, nontender, no organomegaly, BS +. EXTREMITIES: 2+ pulses, warm, well-perfused, no edema. NEUROLOGICAL: No facial droop, Normal speech, gait not observed. PSYCH: Normal mood, normal affect. SKIN: Warm, dry, normal turgor, no rashes or lesions noted Laboratory Results - last 24 hr 04/14/18 04/14/18 05:55 05:55 PT with INR 22.10 H INR 1.86 H Sodium 140 Potassium 4.1 Chloride 103 Carbon Dioxide 32 Anion Gap 6 L BUN 22 H Creatinine 1.4 H Creat Clearance w eGFR 48.05 Random Glucose 102 Calcium 8.3 L Active Medications Generic Name Dose Route Start Last Admin Trade Name Freq PRN Reason Stop Dose Admin Acetaminophen 650 mg 04/08/18 21:39 04/08/18 22:13 Tylenol - PO 650 mg Q6H PRN Administration Fever Atorvastatin Calcium 20 mg 04/05/18 22:00 04/13/18 22:08 Lipitor - PO 20 mg HS [facility]I Administration Latanoprost 1 drop 04/05/18 22:00 04/13/18 22:08 Xalatan 0.005% Eye Drops - OU 1 drop HS [facility] Administration Metoprolol Tartrate 25 mg 04/05/18 09:30 04/14/18 05:26 Lopressor - PO 25 mg TID [facility]I Administration Pantoprazole Sodium 40 mg 04/08/18 10:00 04/13/18 22:08 Protonix - PO 40 mg BID [facility]I Administration Sertraline HCl 50 mg 04/08/18 10:00 04/13/18 10:35 Zoloft - PO 50 mg DAILY [facility] Administration Torsemide 20 mg 04/11/18 10:30 04/13/18 10:35 Demadex - PO 20 mg DAILY [facility] Administration Warfarin Sodium 3 mg 04/13/18 18:00 04/13/18 17:12 Coumadin - PO 3 mg DAILY@1800 [facility] Administration ASSESSMENT/PLAN: 04/04: Renal ultrasound normal ASSESSMENT/PLAN: Patient is an 87 year old male with significant PMHx of distant CVA (residual left sided weakness) , afib on Warfarin 4 mg qhs, chronic left carotid occlusion , HTN, HLD, and hemorrhoids presents with rectal bleeding, diarrhea x2d. # MELVIN likely prerenal/ poor oral intake Creatinine 1.4 (baseline 1.1) on admission, creatinine was 2.5 and it had improved now slightly rising. Discontinue Torsemide. Started IV NS @ 42 mls.hr. Will reevalute in AM and continue fluids if needed. Avoid nephrotoxic drugs. # Atrial fibrillation-rate controlled-coumadin resumed has subtherapeutic INR. INR:1.86 Continue warfarin 3mg. Will repeat INR in AM No heparin drip or lovenox for subtherpeutic INR due to recent hx of GI bleed , pt is high risk of bleeding # Acute GI bleed-now resolved Patient refusing Colonoscopy/ENdoscopy. (HCP) understands the risk of starting on coumadin, will agree for colonoscopy if he has a GI bleed. Dr. Rizo also spoke with the and is aware. # SIRS Blood cultures/urine cultures negative so off antibiotics. No signs of infection. # Normocytic anemia: H/H Stable. # Increased troponins demand ischemia vs NSTEMI-trops downtrending. continuous cardiac monitoring. # Hyperlipidemia Continue Statin 20mg HS # Hypertension-controlled. Continue Metoprolol 25mg TID. Discontinue Torsemide 20mg (patient is dry). Hold aldactone due to Hyperkalemia on admission. # Hyperkalemia now resolved # Chronic left carotid occlusion. # FEN Not on IVF, can tolerate PO. Electrolytes: Phosphorus repleted. Sodium controlled diet. # Prophylaxis For DVT: already on Coumadin For GI; Protonix 40mg BID # Code Status: Full Code # Dispo: Continue to monitor in Tele. Illness, investigation and Plan of care explained to the patient. He verbalized understanding. Case discussed with Dr. Garcia. Problem List - Problems (1) Acute kidney insufficiency Code(s): N28.9 - DISORDER OF KIDNEY AND URETER, UNSPECIFIED (2) Anemia Code(s): D64.9 - ANEMIA, UNSPECIFIED (3) GIB (gastrointestinal bleeding) Code(s): K92.2 - GASTROINTESTINAL HEMORRHAGE, UNSPECIFIED Qualifiers: GI bleed type/associated pathology: anorectal hemorrhage Qualified Code(s) : K62.5 - Hemorrhage of anus and rectum (4) Hyperkalemia Code(s): E87.5 - HYPERKALEMIA (5) Lactic acid acidosis Code(s): E87.2 - ACIDOSIS (6) Sepsis Code(s): A41.9 - SEPSIS, UNSPECIFIED ORGANISM (7) Supratherapeutic INR Code(s): R79.1 - ABNORMAL COAGULATION PROFILE (8) Warfarin toxicity Code(s): T45.511A - POISONING BY ANTICOAGULANTS, ACCIDENTAL, INIT Visit type - Emergency Visit Emergency Visit: Yes ED Registration Date: 04/03/18 Care time: The patient presented to the Emergency Department on the above date and was hospitalized for further evaluation of their emergent condition. - New Patient This patient is new to me today: No - Critical Care Critical Care patient: No - Discharge Referral Referred to [facility] Med P.C.: No
[2018-04-14] MEDS: PANTOPRAZOLE 40 MG TABLET (FP) PO SCH ×2 (10:27→21:55)
[2018-04-14] MEDS: SERTRALINE HCL 50 MG TABLET (FP) PO SCH (10:28)
[2018-04-14] MEDS: TORSEMIDE 20 MG TABLET (FP) PO SCH (10:28)
--- NOTE | 2018-04-14 11:15 | PN ---
Progress Note (short form) - Note Progress Note: Chief Complaint: GIB History of Present Illness: no rectal bleeding or melena. no chest pain, palps, dizziness, lightheadedness. Current Medications Generic Name Dose Route Start Last Admin Trade Name Freq PRN Reason Stop Dose Admin Acetaminophen 650 mg 04/08/18 21:39 04/08/18 22:13 Tylenol - PO 650 mg Q6H PRN Administration Fever Atorvastatin Calcium 20 mg 04/05/18 22:00 04/13/18 22:08 Lipitor - PO 20 mg HS [facility] Administration Latanoprost 1 drop 04/05/18 22:00 04/13/18 22:08 Xalatan 0.005% Eye Drops - OU 1 drop HS [facility] Administration Metoprolol Tartrate 25 mg 04/05/18 09:30 04/14/18 05:26 Lopressor - PO 25 mg TID [facility] Administration Pantoprazole Sodium 40 mg 04/08/18 10:00 04/14/18 10:27 Protonix - PO 40 mg BID [facility] Administration Sertraline HCl 50 mg 04/08/18 10:00 04/14/18 10:28 Zoloft - PO 50 mg DAILY [facility] Administration Torsemide 20 mg 04/11/18 10:30 04/14/18 10:28 Demadex - PO 20 mg DAILY [facility] Administration Warfarin Sodium 3 mg 04/13/18 18:00 04/13/18 17:12 Coumadin - PO 3 mg DAILY@1800 [facility] Administration Vital Signs Period Temp Pulse Resp BP Sys/Daniel Pulse Ox Last 24 Hr 97.5 F-98.1 F 71-84 18-20 76-124/38-75 94 Constitutional: Yes: No Distress, Calm Eyes: No: Sclera Icterus HENT: No: Nasal Congestion Cardiovascular: Yes: Pulse Irregular, S1, S2, Other (PMI non diplaced). No: Gallop, Murmur Respiratory: Yes: CTA Bilaterally. No: Accessory Muscle Use, Rales, Wheezes Gastrointestinal: Yes: Normal Bowel Sounds, Soft. No: Tenderness Extremities: No: Cyanosis Edema: No Integumentary: No: Jaundice Neurological: Yes: Alert, Oriented (x3) Psychiatric: No: Agitated CBC, BMP 04/13/18 06:00 04/14/18 05:55 EKG 04/03 (19:17): poor baseline, prob fib/flutter. HR 106. 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 nonsp ST-Ts I/avL EKG 04/04: afib, more pronounced STs lateral leads ECG 04/05: afib, no change vs 04/04 CXR: clear lungs/pleura Echo 03/22: nl LV size. mild decr EF (45-50%). RWMA tds. inferolateral wall appears mildly HK. nl RV. mild TR. PASP at least 49. tele: afib, rate controlled a/p: LGIB, preop CV eval for FOC and/or EGD: -per GI -INR was high (>5), warfarin reversed with vit K -he declined GIB workup Afib: -rapid HR initially due to active bleeding with hypotension, improving with improved hemodynamics -low BP limits AVN blocking med options. low GFR risk for digoxin -tolerating moderate dose lopressor with soft but stable bp's, HRs reasonable-- stable on tele, continue same dose -h/o CVA, hi CHADS VASC score. -was on warfarin at home. INR >5 here, GIB--AC held. No further melena/rectal bleeding and hgb stable. Pt refuses GIB w/u. - warfarin has been resumed with plan to monitor INR closely and hope for preventing bleeding if can be maintained more consistently in 2-3 range. -pt is high risk for CVA if AC is permanently discontinued. he is also high risk for adverse CV outcome if has severe bleeding (based on the presentation this time). he was seeing Dr. Cardenas previously for cardio, has not returned recently (Dr. Cardenas has left the area). Pt was advised he will need to d/w Dr. Holley to arrange close INR f/u and ongoing cardio care as outpt (dr holley informed of plan as well - cont wafarin, close followup of INR, goal 2-3 NSTEMI: -trop peaked 4.5, now downtrending -likely secondary to acute hypotension/tachy, i.e. deman ischemia/Type II NC -ECG's stable -echo with mild decr EF, ? regional per report (TDS regional wall motion) -not a candidate for anti-PLTs, AC or invasive interventions regardless given his GIB of unknown source and pt refusing GI eval. -cont BB, HR control as doing. statin. -remains asymptomatic -pt is refusing further testing-- per Dr. Dunlap: d/w'd pt and concern over underyling chronic, stable CAD and cannot say if hi risk or not without further imaging. rec'd pharm MPI for risk stratification. he is very aggravated at prolonged hosp stay and wishes to defer this until can d/w dr holley as outpt. low risk clinically given never had signs of ACS and no ischemic sx's here. d/w' d dr holley who will arrange outpt cardio f/u MELVIN: -baseline creat 1.1 in 02/20 -initial creat 2.4, coming down with IVF pulm HTN: -at least mild-mod pulm HTN on echo here, possibly high left sided filling pressures due to acute ischemia/rapid AF -outpt f/u HTN: -stable HPL, h/o carotid dz: -cont home atorva cardiac desouza remains stable
--- NOTE | 2018-04-14 13:05 | PN ---
Teaching Attending Note Name of Resident: Alejandra Salter ATTENDING PHYSICIAN STATEMENT I saw and evaluated the patient. I reviewed the resident's note and discussed the case with the resident. I agree with the resident's findings and plan as documented. SUBJECTIVE: Mr Upton is without complaint. Denies cp, sob, n/v. OBJECTIVE: Last Vital Signs Temp Pulse Resp BP Pulse Ox 36.4 C L 72 18 113/75 94 L 04/14/18 10:00 04/14/18 10:00 04/14/18 10:00 04/14/18 10:00 04/13/18 20:47 Gen: nad, obese Pulm: ctab w/o w/r/r CV: irreg irreg w/o m/r/g Abd: +bs, s/nt/nd Ext: no c/c/e CBC, BMP 04/13/18 06:00 04/14/18 05:55 ASSESSMENT AND PLAN: (1) GIB (gastrointestinal bleeding) Assessment/Plan: -resolved Code(s): K92.2 - GASTROINTESTINAL HEMORRHAGE, UNSPECIFIED Qualifiers: GI bleed type/associated pathology: anorectal hemorrhage Qualified Code(s) : K62.5 - Hemorrhage of anus and rectum (2) Sepsis Assessment/Plan: -resolved Code(s): A41.9 - SEPSIS, UNSPECIFIED ORGANISM (3) Lactic acid acidosis Assessment/Plan: -resolved Code(s): E87.2 - ACIDOSIS (4) Warfarin toxicity Assessment/Plan: -now subtherapeutic -continue coumadin 3mg daily Code(s): T45.511A - POISONING BY ANTICOAGULANTS, ACCIDENTAL, INIT (5) NSTEMI (non-ST elevated myocardial infarction) Assessment/Plan: -case d/w cardiology -medical management Code(s): I21.4 - NON-ST ELEVATION (NSTEMI) MYOCARDIAL INFARCTION (6) Acute kidney insufficiency Assessment/Plan: -slightly increased creatinine today -stop torsemide -gentle hydration -case d/w Dr Smith Code(s): N28.9 - DISORDER OF KIDNEY AND URETER, UNSPECIFIED (7) Anemia Assessment/Plan: -stable Code(s): D64.9 - ANEMIA, UNSPECIFIED Problem List - Problems (1) GIB (gastrointestinal bleeding) Code(s): K92.2 - GASTROINTESTINAL HEMORRHAGE, UNSPECIFIED Qualifiers: GI bleed type/associated pathology: anorectal hemorrhage Qualified Code(s) : K62.5 - Hemorrhage of anus and rectum (2) Sepsis Code(s): A41.9 - SEPSIS, UNSPECIFIED ORGANISM (3) Lactic acid acidosis Code(s): E87.2 - ACIDOSIS (4) Warfarin toxicity Code(s): T45.511A - POISONING BY ANTICOAGULANTS, ACCIDENTAL, INIT (5) NSTEMI (non-ST elevated myocardial infarction) Code(s): I21.4 - NON-ST ELEVATION (NSTEMI) MYOCARDIAL INFARCTION (6) Acute kidney insufficiency Code(s): N28.9 - DISORDER OF KIDNEY AND URETER, UNSPECIFIED (7) Anemia Code(s): D64.9 - ANEMIA, UNSPECIFIED
[2018-04-14] MEDS ORDERED: SODIUM CHLORIDE 1,000 ML IV SCH (14:00)
--- NOTE | 2018-04-14 14:06 | PN ---
Progress Note, Physician History of Present Illness: Pt seen and examined at bedside. He is awake and alert. He denies shortness of breath. His renal function is starting to worsen. - Current Medication List Current Medications: Active Medications Acetaminophen (Tylenol -) 650 mg PO Q6H PRN PRN Reason: Fever Last Admin: 04/08/18 22:13 Dose: 650 mg Atorvastatin Calcium (Lipitor -) 20 mg PO HS [facility] Last Admin: 04/13/18 22:08 Dose: 20 mg Sodium Chloride (Normal Saline -) 1,000 mls @ 42 mls/hr IV ASDIR [facility] Latanoprost (Xalatan 0.005% Eye Drops -) 1 drop OU HS [facility] Last Admin: 04/13/18 22:08 Dose: 1 drop Metoprolol Tartrate (Lopressor -) 25 mg PO TID [facility] Last Admin: 04/14/18 13:18 Dose: 25 mg Pantoprazole Sodium (Protonix -) 40 mg PO BID [facility] Last Admin: 04/14/18 10:27 Dose: 40 mg Sertraline HCl (Zoloft -) 50 mg PO DAILY [facility] Last Admin: 04/14/18 10:28 Dose: 50 mg Warfarin Sodium (Coumadin -) 3 mg PO DAILY@1800 [facility] Last Admin: 04/13/18 17:12 Dose: 3 mg - Objective Vital Signs: Vital Signs Temperature 97.5 F L 04/14/18 10:00 Pulse Rate 72 04/14/18 10:00 Respiratory Rate 18 04/14/18 10:00 Blood Pressure 113/75 04/14/18 10:00 O2 Sat by Pulse Oximetry (%) 94 L 04/13/18 20:47 Constitutional: Yes: Calm Eyes: Yes: Conjunctiva Clear HENT: Yes: Atraumatic Neck: Yes: Supple Cardiovascular: Yes: S1, S2 Respiratory: Yes: CTA Bilaterally Gastrointestinal: Yes: Soft Musculoskeletal: Yes: WNL Edema: No Neurological: Yes: Oriented Psychiatric: Yes: Oriented Labs: CBC, BMP 04/13/18 06:00 04/14/18 05:55 INR, PTT INR 1.86 (0.83-1.09) H 04/14/18 05:55 Assessment/Plan Current Medications Generic Name Dose Route Start Last Admin Trade Name Freq PRN Reason Stop Dose Admin Acetaminophen 650 mg 04/08/18 21:39 04/08/18 22:13 Tylenol - PO 650 mg Q6H PRN Administration Fever Atorvastatin Calcium 20 mg 04/05/18 22:00 04/13/18 22:08 Lipitor - PO 20 mg HS [facility] Administration Sodium Chloride 1,000 mls @ 42 mls/hr 04/14/18 14:00 Normal Saline - IV ASDIR [facility] Latanoprost 1 drop 04/05/18 22:00 04/13/18 22:08 Xalatan 0.005% Eye Drops - OU 1 drop HS [facility] Administration Metoprolol Tartrate 25 mg 04/05/18 09:30 04/14/18 13:18 Lopressor - PO 25 mg TID [facility] Administration Pantoprazole Sodium 40 mg 04/08/18 10:00 04/14/18 10:27 Protonix - PO 40 mg BID [facility] Administration Sertraline HCl 50 mg 04/08/18 10:00 04/14/18 10:28 Zoloft - PO 50 mg DAILY [facility] Administration Warfarin Sodium 3 mg 04/13/18 18:00 04/13/18 17:12 Coumadin - PO 3 mg DAILY@1800 [facility] Administration Impression 1. MELVIN 2. anemia 3. gi bleed 4. hypotension 5. HLD 6. hx cva 7. lactic acidosis 8. hyperkalemia Plan - renal function is worsening - will restart gentle hydration - repeat labs in am - avoid nsaids - monitor for bleeding - pt tolerating diet - will follow Dr Smith
[2018-04-14] MEDS: SODIUM CHLORIDE 0.45% 1,000 ML IV SCH (14:17)
--- NOTE | 2018-04-14 16:42 | PN ---
Progress Note, Physician History of Present Illness: stable no complaints in the room - Current Medication List Current Medications: Active Medications Acetaminophen (Tylenol -) 650 mg PO Q6H PRN PRN Reason: Fever Last Admin: 04/08/18 22:13 Dose: 650 mg Atorvastatin Calcium (Lipitor -) 20 mg PO HS [facility] Last Admin: 04/13/18 22:08 Dose: 20 mg Sodium Chloride (1/2 Normal Saline) 1,000 mls @ 50 mls/hr IV ASDIR [facility] Stop: 04/15/18 14:07 Last Admin: 04/14/18 14:17 Dose: 50 mls/hr Latanoprost (Xalatan 0.005% Eye Drops -) 1 drop OU HS [facility] Last Admin: 04/13/18 22:08 Dose: 1 drop Metoprolol Tartrate (Lopressor -) 25 mg PO TID [facility] Last Admin: 04/14/18 13:18 Dose: 25 mg Pantoprazole Sodium (Protonix -) 40 mg PO BID [facility] Last Admin: 04/14/18 10:27 Dose: 40 mg Sertraline HCl (Zoloft -) 50 mg PO DAILY [facility] Last Admin: 04/14/18 10:28 Dose: 50 mg Warfarin Sodium (Coumadin -) 3 mg PO DAILY@1800 [facility] Last Admin: 04/13/18 17:12 Dose: 3 mg - Objective Vital Signs: Vital Signs Temperature 97.9 F 04/14/18 14:00 Pulse Rate 74 04/14/18 14:00 Respiratory Rate 18 04/14/18 14:00 Blood Pressure 104/54 L 04/14/18 14:00 O2 Sat by Pulse Oximetry (%) 94 L 04/14/18 09:00 Constitutional: Yes: No Distress, Calm Cardiovascular: Yes: Pulse Irregular Respiratory: Yes: Regular, CTA Bilaterally Gastrointestinal: Yes: Normal Bowel Sounds, Soft Musculoskeletal: Yes: WNL Extremities: Yes: WNL Neurological: Yes: Alert, Oriented Psychiatric: Yes: Alert, Oriented Labs: CBC, BMP 04/13/18 06:00 04/14/18 05:55 INR, PTT INR 1.86 (0.83-1.09) H 04/14/18 05:55 Assessment/Plan Problem List - Problems (1) GIB (gastrointestinal bleeding) Code(s): K92.2 - GASTROINTESTINAL HEMORRHAGE, UNSPECIFIED Qualifiers: GI bleed type/associated pathology: anorectal hemorrhage Qualified Code(s) : K62.5 - Hemorrhage of anus and rectum (2) Sepsis Code(s): A41.9 - SEPSIS, UNSPECIFIED ORGANISM (3) Lactic acid acidosis Code(s): E87.2 - ACIDOSIS (4) Warfarin toxicity Code(s): T45.511A - POISONING BY ANTICOAGULANTS, ACCIDENTAL, INIT (5) NSTEMI (non-ST elevated myocardial infarction) Code(s): I21.4 - NON-ST ELEVATION (NSTEMI) MYOCARDIAL INFARCTION (6) Acute kidney insufficiency Code(s): N28.9 - DISORDER OF KIDNEY AND URETER, UNSPECIFIED (7) Anemia Code(s): D64.9 - ANEMIA, UNSPECIFIED plan continue current mgmt monitor of of abx monitor h and inr rest as per the team
[2018-04-14] MEDS: WARFARIN NA 3 MG TABLET PO SCH (17:19)
[2018-04-14] MEDS ORDERED: PT OWN MED DRAWER 7, Y5N ONE (21:47)
[2018-04-14] MEDS: ATORVASTATIN CA 20 MG TABLET (FP) PO SCH (21:55)
[2018-04-14] MEDS: LATANOPROST 0.005% OPHTH SOLN 2.5ML BOTTLE OU SCH (21:56)
[2018-04-15] MEDS: METOPROLOL TARTRATE 25 MG TABLET (FP) PO SCH ×3 (05:49→21:10)
[2018-04-15 06:27] LABS: HEMATOCRIT 32.6 % (35.4-49); HEMOGLOBIN 10.6 GM/dL (11.7-16.9); MCH 30.3 pg (25.7-33.7); MCHC 32.6 g/dl (32.0-35.9); MEAN CELL VOLUME 92.8 fl (80-96); MEAN PLT VOLUME 9.2 fl (7.5-11.1); PLATELET COUNT 195 K/MM3 (134-434); RBC 3.51 M/mm3 (4.00-5.60); RDW 16.4 % (11.9-15.9); WHITE BLOOD COUNT 5.8 K/mm3 (4.0-10.0)
[2018-04-15 06:52] LABS: ANION GAP 5 MMOL/L (8-16); BLOOD UREA NITROGEN 26 mg/dL (7-18); CALCIUM 8.3 mg/dL (8.5-10.1); CHLORIDE 104 mmol/L (98-107); CO2 33 mmol/L (21-32); CREATININE 1.5 mg/dL (0.55-1.3); GLUCOSE,RANDOM 104 mg/dL (74-106); POTASSIUM 4.4 mmol/L (3.5-5.1); SODIUM 142 mmol/L (136-145)
[2018-04-15 07:01] LABS: INR 1.72 (0.83-1.09); PROTHROMBIN TIME (PATIENT) 20.4 SEC (9.7-13.0)
[2018-04-15] MEDS: SERTRALINE HCL 50 MG TABLET (FP) PO SCH (09:08)
[2018-04-15] MEDS: PANTOPRAZOLE 40 MG TABLET (FP) PO SCH ×2 (09:08→21:10)
[2018-04-15] MEDS: SODIUM CHLORIDE 0.45% 1,000 ML IV SCH (10:37)
--- NOTE | 2018-04-15 11:32 | PN ---
Progress Note, Physician History of Present Illness: Pt seen and examined at bedside. He denies shortness of breath. He is tolerating diet. - Current Medication List Current Medications: Active Medications Acetaminophen (Tylenol -) 650 mg PO Q6H PRN PRN Reason: Fever Last Admin: 04/08/18 22:13 Dose: 650 mg Atorvastatin Calcium (Lipitor -) 20 mg PO HS [facility] Last Admin: 04/14/18 21:55 Dose: 20 mg Sodium Chloride (1/2 Normal Saline) 1,000 mls @ 50 mls/hr IV ASDIR [facility] Stop: 04/15/18 14:07 Last Admin: 04/15/18 10:37 Dose: 50 mls/hr Latanoprost (Xalatan 0.005% Eye Drops -) 1 drop OU HS [facility] Last Admin: 04/14/18 21:56 Dose: 1 drop Metoprolol Tartrate (Lopressor -) 25 mg PO TID [facility] Last Admin: 04/15/18 05:49 Dose: 25 mg Pantoprazole Sodium (Protonix -) 40 mg PO BID [facility] Last Admin: 04/15/18 09:08 Dose: 40 mg Sertraline HCl (Zoloft -) 50 mg PO DAILY [facility] Last Admin: 04/15/18 09:08 Dose: 50 mg Warfarin Sodium (Coumadin -) 5 mg PO DAILY@1800 [facility] - Objective Vital Signs: Vital Signs Temperature 98.2 F 04/15/18 10:00 Pulse Rate 70 04/15/18 10:00 Respiratory Rate 16 04/15/18 10:00 Blood Pressure 126/58 L 04/15/18 10:00 O2 Sat by Pulse Oximetry (%) 95 04/15/18 09:00 Constitutional: Yes: Calm Eyes: Yes: Conjunctiva Clear HENT: Yes: Atraumatic Neck: Yes: Supple Cardiovascular: Yes: S1, S2 Respiratory: Yes: CTA Bilaterally Gastrointestinal: Yes: Soft Genitourinary: Yes: WNL Musculoskeletal: Yes: WNL Edema: No Neurological: Yes: Oriented Psychiatric: Yes: Oriented Labs: CBC, BMP 04/15/18 06:00 04/15/18 06:00 INR, PTT INR 1.72 (0.83-1.09) H 04/15/18 06:00 Assessment/Plan Current Medications Generic Name Dose Route Start Last Admin Trade Name Freq PRN Reason Stop Dose Admin Acetaminophen 650 mg 04/08/18 21:39 04/08/18 22:13 Tylenol - PO 650 mg Q6H PRN Administration Fever Atorvastatin Calcium 20 mg 04/05/18 22:00 04/14/18 21:55 Lipitor - PO 20 mg HS [facility] Administration Sodium Chloride 1,000 mls @ 50 mls/hr 04/14/18 14:15 04/15/18 10:37 1/2 Normal Saline IV 04/15/18 14:07 50 mls/hr ASDIR [facility] Administration Latanoprost 1 drop 04/05/18 22:00 04/14/18 21:56 Xalatan 0.005% Eye Drops - OU 1 drop HS [facility] Administration Metoprolol Tartrate 25 mg 04/05/18 09:30 04/15/18 05:49 Lopressor - PO 25 mg TID [facility] Administration Pantoprazole Sodium 40 mg 04/08/18 10:00 04/15/18 09:08 Protonix - PO 40 mg BID [facility] Administration Sertraline HCl 50 mg 04/08/18 10:00 04/15/18 09:08 Zoloft - PO 50 mg DAILY [facility] Administration Warfarin Sodium 5 mg 04/15/18 18:00 Coumadin - PO DAILY@1800 [facility] Impression 1. MELVIN 2. anemia 3. gi bleed 4. hypotension 5. HLD 6. hx cva 7. lactic acidosis 8. hyperkalemia Plan - cont with fluids - repeat labs in am - renal function is worsening - torsemide on hold - repeat labs in am - avoid nsaids - monitor for bleeding - pt tolerating diet - will follow Dr Smith
[2018-04-15] MEDS ORDERED: SODIUM CHLORIDE 0.45% 1,000 ML IV SCH (11:45)
--- NOTE | 2018-04-15 11:53 | PN ---
Progress Note (short form) - Note Progress Note: Chief Complaint: GIB History of Present Illness: no rectal bleeding or melena. no chest pain, palps, dizziness, lightheadedness. Current Medications Generic Name Dose Route Start Last Admin Trade Name Freq PRN Reason Stop Dose Admin Acetaminophen 650 mg 04/08/18 21:39 04/08/18 22:13 Tylenol - PO 650 mg Q6H PRN Administration Fever Atorvastatin Calcium 20 mg 04/05/18 22:00 04/14/18 21:55 Lipitor - PO 20 mg HS [facility] Administration Sodium Chloride 1,000 mls @ 65 mls/hr 04/15/18 11:45 1/2 Normal Saline IV ASDIR [facility] Latanoprost 1 drop 04/05/18 22:00 04/14/18 21:56 Xalatan 0.005% Eye Drops - OU 1 drop HS [facility] Administration Metoprolol Tartrate 25 mg 04/05/18 09:30 04/15/18 05:49 Lopressor - PO 25 mg TID [facility] Administration Pantoprazole Sodium 40 mg 04/08/18 10:00 04/15/18 09:08 Protonix - PO 40 mg BID [facility] Administration Sertraline HCl 50 mg 04/08/18 10:00 04/15/18 09:08 Zoloft - PO 50 mg DAILY [facility] Administration Warfarin Sodium 5 mg 04/15/18 18:00 Coumadin - PO DAILY@1800 [facility] Vital Signs Period Temp Pulse Resp BP Sys/Daniel Pulse Ox Last 24 Hr 97.2 F-98.2 F 70-80 16-19 103-126/48-65 95-95 Constitutional: Yes: No Distress, Calm Eyes: No: Sclera Icterus HENT: No: Nasal Congestion Cardiovascular: Yes: Pulse Irregular, S1, S2, Other (PMI non diplaced). No: Gallop, Murmur Respiratory: Yes: CTA Bilaterally. No: Accessory Muscle Use, Rales, Wheezes Gastrointestinal: Yes: Normal Bowel Sounds, Soft. No: Tenderness Extremities: No: Cyanosis Edema: No Integumentary: No: Jaundice Neurological: Yes: Alert, Oriented (x3) Psychiatric: No: Agitated CBC, BMP 04/15/18 06:00 04/15/18 06:00 EKG 04/03 (19:17): poor baseline, prob fib/flutter. HR 106. 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 nonsp ST-Ts I/avL EKG 04/04: afib, more pronounced STs lateral leads ECG 04/05: afib, no change vs 04/04 CXR: clear lungs/pleura Echo 03/22: nl LV size. mild decr EF (45-50%). RWMA tds. inferolateral wall appears mildly HK. nl RV. mild TR. PASP at least 49. tele: afib, rate controlled a/p: LGIB, preop CV eval for FOC and/or EGD: -per GI -INR was high (>5), warfarin reversed with vit K -he declined GIB workup Afib: -rapid HR initially due to active bleeding with hypotension, improving with improved hemodynamics -low BP limits AVN blocking med options. low GFR risk for digoxin -tolerating moderate dose lopressor with soft but stable bp's, HRs reasonable-- stable on tele, continue same dose -h/o CVA, hi CHADS VASC score. -was on warfarin at home. INR >5 here, GIB--AC held. No further melena/rectal bleeding and hgb stable. Pt refuses GIB w/u. - warfarin has been resumed with plan to monitor INR closely and hope for preventing bleeding if can be maintained more consistently in 2-3 range. -pt is high risk for CVA if AC is permanently discontinued. he is also high risk for adverse CV outcome if has severe bleeding (based on the presentation this time). he was seeing Dr. Cardenas previously for cardio, has not returned recently (Dr. Cardenas has left the area). Pt was advised he will need to d/w Dr. Holley to arrange close INR f/u and ongoing cardio care as outpt (dr holley informed of plan as well - cont wafarin, close followup of INR, goal 2-3 NSTEMI: -trop peaked 4.5, now downtrending -likely secondary to acute hypotension/tachy, i.e. deman ischemia/Type II DE -ECG's stable -echo with mild decr EF, ? regional per report (TDS regional wall motion) -not a candidate for anti-PLTs, AC or invasive interventions regardless given his GIB of unknown source and pt refusing GI eval. -cont BB, HR control as doing. statin. -remains asymptomatic -pt is refusing further testing-- per Dr. Dunlap: d/w'd pt and concern over underyling chronic, stable CAD and cannot say if hi risk or not without further imaging. rec'd pharm MPI for risk stratification. he is very aggravated at prolonged hosp stay and wishes to defer this until can d/w dr holley as outpt. low risk clinically given never had signs of ACS and no ischemic sx's here. d/w' d dr holley who will arrange outpt cardio f/u MELVIN: -baseline creat 1.1 in 02/20 -initial creat 2.4, improved pulm HTN: -at least mild-mod pulm HTN on echo here, possibly high left sided filling pressures due to acute ischemia/rapid AF -outpt f/u HTN: -stable HPL, h/o carotid dz: -cont home atorva cardiac desouza remains stable, dc tele
--- NOTE | 2018-04-15 14:00 | PN ---
Progress Note, Physician History of Present Illness: doing well stable inr being adjusted refused physio - Current Medication List Current Medications: Active Medications Acetaminophen (Tylenol -) 650 mg PO Q6H PRN PRN Reason: Fever Last Admin: 04/08/18 22:13 Dose: 650 mg Atorvastatin Calcium (Lipitor -) 20 mg PO HS [facility] Last Admin: 04/14/18 21:55 Dose: 20 mg Sodium Chloride (1/2 Normal Saline) 1,000 mls @ 65 mls/hr IV ASDIR [facility] Latanoprost (Xalatan 0.005% Eye Drops -) 1 drop OU HS [facility] Last Admin: 04/14/18 21:56 Dose: 1 drop Metoprolol Tartrate (Lopressor -) 25 mg PO TID [facility] Last Admin: 04/15/18 05:49 Dose: 25 mg Pantoprazole Sodium (Protonix -) 40 mg PO BID [facility] Last Admin: 04/15/18 09:08 Dose: 40 mg Sertraline HCl (Zoloft -) 50 mg PO DAILY [facility] Last Admin: 04/15/18 09:08 Dose: 50 mg Warfarin Sodium (Coumadin -) 5 mg PO DAILY@1800 [facility] - Objective Vital Signs: Vital Signs Temperature 98.2 F 04/15/18 10:00 Pulse Rate 70 04/15/18 10:00 Respiratory Rate 16 04/15/18 10:00 Blood Pressure 126/58 L 04/15/18 10:00 O2 Sat by Pulse Oximetry (%) 95 04/15/18 09:00 Constitutional: Yes: No Distress, Calm Cardiovascular: Yes: Pulse Irregular Respiratory: Yes: Regular, CTA Bilaterally Gastrointestinal: Yes: Normal Bowel Sounds, Soft Musculoskeletal: Yes: WNL Extremities: Yes: WNL Neurological: Yes: Alert, Oriented Psychiatric: Yes: Alert, Oriented Labs: CBC, BMP 04/15/18 06:00 04/15/18 06:00 INR, PTT INR 1.72 (0.83-1.09) H 04/15/18 06:00 Assessment/Plan Problem List - Problems (1) GIB (gastrointestinal bleeding) Code(s): K92.2 - GASTROINTESTINAL HEMORRHAGE, UNSPECIFIED Qualifiers: GI bleed type/associated pathology: anorectal hemorrhage Qualified Code(s) : K62.5 - Hemorrhage of anus and rectum (2) Sepsis Code(s): A41.9 - SEPSIS, UNSPECIFIED ORGANISM (3) Lactic acid acidosis Code(s): E87.2 - ACIDOSIS (4) Warfarin toxicity Code(s): T45.511A - POISONING BY ANTICOAGULANTS, ACCIDENTAL, INIT (5) NSTEMI (non-ST elevated myocardial infarction) Code(s): I21.4 - NON-ST ELEVATION (NSTEMI) MYOCARDIAL INFARCTION (6) Acute kidney insufficiency Code(s): N28.9 - DISORDER OF KIDNEY AND URETER, UNSPECIFIED (7) Anemia Code(s): D64.9 - ANEMIA, UNSPECIFIED plan continue current mgmt monitor of of abx inr rest as per the team
--- NOTE | 2018-04-15 15:10 | PN ---
Physical Exam: SUBJECTIVE: Patient seen and examined at bed side this morning. Refusing to eat breakfast. Denies chest pain, sob, cough, palpitation, abdominal pain, nausea or vomiting. No acute overnight events. OBJECTIVE: Vital Signs Period Temp Pulse Resp BP Sys/Daniel Pulse Ox Last 24 Hr 97.2 F-98.2 F 70-80 16-19 103-126/48-65 95-95 GENERAL: Elderly male, sitting in bed comfortably, is awake, alert, and fully oriented, in no acute distress. EYES: EOM intact, pallor +, no icterus, puffy eyes + ENT: Ears normal, dry mucous membranes. NECK: Supple. LUNGS: Breath sounds equal, no crackles ro wheeze. HEART: Regular rate and rhythm, S1, S2 without murmur. ABDOMEN: Soft, nontender, no organomegaly, BS +. EXTREMITIES: 2+ pulses, warm, well-perfused, no edema. NEUROLOGICAL: No facial droop, Normal speech, gait not observed. PSYCH: Normal mood, normal affect. SKIN: Warm, dry, normal turgor, no rashes or lesions noted Laboratory Results - last 24 hr 04/15/18 04/15/18 04/15/18 06:00 06:00 06:00 WBC 5.8 RBC 3.51 L Hgb 10.6 L Hct 32.6 L MCV 92.8 MCH 30.3 MCHC 32.6 RDW 16.4 H Plt Count 195 MPV 9.2 PT with INR 20.40 H INR 1.72 H Sodium 142 Potassium 4.4 Chloride 104 Carbon Dioxide 33 H Anion Gap 5 L BUN 26 H Creatinine 1.5 H Creat Clearance w eGFR 44.37 Random Glucose 104 Calcium 8.3 L Active Medications Generic Name Dose Route Start Last Admin Trade Name Freq PRN Reason Stop Dose Admin Acetaminophen 650 mg 04/08/18 21:39 04/08/18 22:13 Tylenol - PO 650 mg Q6H PRN Administration Fever Atorvastatin Calcium 20 mg 04/05/18 22:00 04/14/18 21:55 Lipitor - PO 20 mg HS [facility] Administration Sodium Chloride 1,000 mls @ 65 mls/hr 04/15/18 11:45 04/15/18 11:45 1/2 Normal Saline IV 65 mls/hr ASDIR [facility] Administration Latanoprost 1 drop 04/05/18 22:00 04/14/18 21:56 Xalatan 0.005% Eye Drops - OU 1 drop HS [facility] Administration Metoprolol Tartrate 25 mg 04/05/18 09:30 04/15/18 14:10 Lopressor - PO 25 mg TID [facility] Administration Pantoprazole Sodium 40 mg 04/08/18 10:00 04/15/18 09:08 Protonix - PO 40 mg BID [facility] Administration Sertraline HCl 50 mg 04/08/18 10:00 04/15/18 09:08 Zoloft - PO 50 mg DAILY [facility] Administration Warfarin Sodium 5 mg 04/15/18 18:00 Coumadin - PO DAILY@1800 [facility] 04/04: Renal ultrasound normal ASSESSMENT/PLAN: Patient is an 87 year old male with significant PMHx of distant CVA (residual left sided weakness) , afib on Warfarin 4 mg qhs, chronic left carotid occlusion , HTN, HLD, and hemorrhoids presents with rectal bleeding, diarrhea x2d. # MELVIN likely prerenal/ poor oral intake Creatinine 1.4-->1.5 today (baseline 1.1) on admission, creatinine was 2.5 and it had improved, now creatinine is again slightly rising. Discontinue Torsemide. Started IV NS @ 42 mls.hr. Re-evalute in AM and continue fluids if needed. Avoid nephrotoxic drugs. # Atrial fibrillation-rate controlled-coumadin resumed has subtherapeutic INR. INR:1.72 Increased the dose of warfarin to 5 mg. Repeat INR in AM No heparin drip or lovenox for subtherpeutic INR due to recent hx of GI bleed , pt is high risk of bleeding # Acute GI bleed-now resolved Patient refusing Colonoscopy/ENdoscopy. (HCP) understands the risk of starting on coumadin, will agree for colonoscopy if he has a GI bleed. Dr. Rizo also spoke with the and is aware. # SIRS Blood cultures/urine cultures negative so off antibiotics. No signs of infection. # Normocytic anemia: H/H Stable. # Increased troponins demand ischemia vs NSTEMI-trops downtrending. continuous cardiac monitoring. # Hyperlipidemia Continue Statin 20mg HS # Hypertension-controlled. Continue Metoprolol 25mg TID. Discontinue Torsemide 20mg (patient is dry). Hold aldactone due to Hyperkalemia on admission. # Hyperkalemia now resolved # Chronic left carotid occlusion. # FEN Not on IVF, can tolerate PO. Electrolytes: WNL Sodium controlled diet. # Prophylaxis For DVT: Already on Coumadin For GI; Protonix 40mg BID # Code Status: Full Code # Dispo: Continue to monitor in Tele. Illness, investigation and Plan of care explained to the patient. He verbalized understanding. Case discussed with Dr. Garcia. Problem List - Problems (1) Acute kidney insufficiency Code(s): N28.9 - DISORDER OF KIDNEY AND URETER, UNSPECIFIED (2) Anemia Code(s): D64.9 - ANEMIA, UNSPECIFIED (3) GIB (gastrointestinal bleeding) Code(s): K92.2 - GASTROINTESTINAL HEMORRHAGE, UNSPECIFIED Qualifiers: GI bleed type/associated pathology: anorectal hemorrhage Qualified Code(s) : K62.5 - Hemorrhage of anus and rectum (4) Hyperkalemia Code(s): E87.5 - HYPERKALEMIA (5) Lactic acid acidosis Code(s): E87.2 - ACIDOSIS (6) Sepsis Code(s): A41.9 - SEPSIS, UNSPECIFIED ORGANISM (7) Supratherapeutic INR Code(s): R79.1 - ABNORMAL COAGULATION PROFILE (8) Warfarin toxicity Code(s): T45.511A - POISONING BY ANTICOAGULANTS, ACCIDENTAL, INIT Visit type - Emergency Visit Emergency Visit: Yes ED Registration Date: 04/03/18 Care time: The patient presented to the Emergency Department on the above date and was hospitalized for further evaluation of their emergent condition. - New Patient This patient is new to me today: No - Critical Care Critical Care patient: No - Discharge Referral Referred to [facility] No
--- NOTE | 2018-04-15 15:18 | PN ---
Teaching Attending Note Name of Resident: Alejandra Salter ATTENDING PHYSICIAN STATEMENT I saw and evaluated the patient. I reviewed the resident's note and discussed the case with the resident. I agree with the resident's findings and plan as documented. SUBJECTIVE: Mr Upton is without complaint. No cp, sob, n/v. OBJECTIVE: Last Vital Signs Temp Pulse Resp BP Pulse Ox 36.6 C 73 18 114/57 L 95 04/15/18 14:00 04/15/18 14:00 04/15/18 14:00 04/15/18 14:00 04/15/18 09:00 Gen: nad Pulm: ctab w/o w/r/r CV: rrr w/o m/r/g Abd: +bs, s/nt/nd Ext: no c/c/e ASSESSMENT AND PLAN: (1) GIB (gastrointestinal bleeding) Assessment/Plan: -resolved Code(s): K92.2 - GASTROINTESTINAL HEMORRHAGE, UNSPECIFIED Qualifiers: GI bleed type/associated pathology: anorectal hemorrhage Qualified Code(s) : K62.5 - Hemorrhage of anus and rectum (2) Sepsis Assessment/Plan: -resolved Code(s): A41.9 - SEPSIS, UNSPECIFIED ORGANISM (3) Lactic acid acidosis Assessment/Plan: -resolved Code(s): E87.2 - ACIDOSIS (4) Warfarin toxicity Assessment/Plan: -now subtherapeutic -increase coumadin to 5mg daily Code(s): T45.511A - POISONING BY ANTICOAGULANTS, ACCIDENTAL, INIT (5) NSTEMI (non-ST elevated myocardial infarction) Assessment/Plan: -continue medical management Code(s): I21.4 - NON-ST ELEVATION (NSTEMI) MYOCARDIAL INFARCTION (6) Acute kidney insufficiency Assessment/Plan: -continue hydration -case d/w Dr Smith -recheck in am Code(s): N28.9 - DISORDER OF KIDNEY AND URETER, UNSPECIFIED (7) Anemia Assessment/Plan: -stable Code(s): D64.9 - ANEMIA, UNSPECIFIED Problem List - Problems (1) GIB (gastrointestinal bleeding) Code(s): K92.2 - GASTROINTESTINAL HEMORRHAGE, UNSPECIFIED Qualifiers: GI bleed type/associated pathology: anorectal hemorrhage Qualified Code(s) : K62.5 - Hemorrhage of anus and rectum (2) Sepsis Code(s): A41.9 - SEPSIS, UNSPECIFIED ORGANISM (3) Lactic acid acidosis Code(s): E87.2 - ACIDOSIS (4) Warfarin toxicity Code(s): T45.511A - POISONING BY ANTICOAGULANTS, ACCIDENTAL, INIT (5) NSTEMI (non-ST elevated myocardial infarction) Code(s): I21.4 - NON-ST ELEVATION (NSTEMI) MYOCARDIAL INFARCTION (6) Acute kidney insufficiency Code(s): N28.9 - DISORDER OF KIDNEY AND URETER, UNSPECIFIED (7) Anemia Code(s): D64.9 - ANEMIA, UNSPECIFIED
[2018-04-15] MEDS: WARFARIN NA 5 MG TABLET (UD) PO SCH (16:58)
[2018-04-15] MEDS ORDERED: PT OWN MED DRAWER 7, Y5N ONE (21:07)
[2018-04-15] MEDS: ATORVASTATIN CA 20 MG TABLET (FP) PO SCH (21:09)
[2018-04-15] MEDS: LATANOPROST 0.005% OPHTH SOLN 2.5ML BOTTLE OU SCH (21:10)
[2018-04-16] MEDS: METOPROLOL TARTRATE 25 MG TABLET (FP) PO SCH ×3 (05:27→21:20)
[2018-04-16 07:58] LABS: HEMATOCRIT 30.7 % (35.4-49); HEMOGLOBIN 9.9 GM/dL (11.7-16.9); MCH 30.1 pg (25.7-33.7); MCHC 32.3 g/dl (32.0-35.9); MEAN CELL VOLUME 93.1 fl (80-96); MEAN PLT VOLUME 9.2 fl (7.5-11.1); PLATELET COUNT 185 K/MM3 (134-434); WHITE BLOOD COUNT 5.1 K/mm3 (4.0-10.0)
[2018-04-16 08:13] LABS: INR 2.04 (0.83-1.09); PROTHROMBIN TIME (PATIENT) 24.3 SEC (9.7-13.0)
[2018-04-16] MEDS: SERTRALINE HCL 50 MG TABLET (FP) PO SCH (09:08)
[2018-04-16] MEDS: PANTOPRAZOLE 40 MG TABLET (FP) PO SCH ×2 (09:08→21:20)
[2018-04-16 09:11] LABS: ANION GAP 6 MMOL/L (8-16); BLOOD UREA NITROGEN 20 mg/dL (7-18); CALCIUM 8.4 mg/dL (8.5-10.1); CHLORIDE 101 mmol/L (98-107); CO2 31 mmol/L (21-32); CREATININE 1.3 mg/dL (0.55-1.3); GLUCOSE,RANDOM 98 mg/dL (74-106); MAGNESIUM 2.2 mg/dL (1.8-2.4); PHOSPHOROUS 2.5 mg/dL (2.5-4.9); POTASSIUM 3.8 mmol/L (3.5-5.1); SODIUM 138 mmol/L (136-145)
--- NOTE | 2018-04-16 10:18 | PN ---
Progress Note (short form) - Note Progress Note: Chief Complaint: GIB History of Present Illness: no rectal bleeding or melena. no chest pain, palps, dizziness, lightheadedness. Current Medications Generic Name Dose Route Start Last Admin Trade Name Frerao PRN Reason Stop Dose Admin Acetaminophen 650 mg 04/08/18 21:39 04/08/18 22:13 Tylenol - PO 650 mg Q6H PRN Administration Fever Atorvastatin Calcium 20 mg 04/05/18 22:00 04/15/18 21:09 Lipitor - PO 20 mg HS SAKSHI Administration Sodium Chloride 1,000 mls @ 65 mls/hr 04/15/18 11:45 04/15/18 11:45 1/2 Normal Saline IV 65 mls/hr ASDIR SAKSHI Administration Latanoprost 1 drop 04/05/18 22:00 04/15/18 21:10 Xalatan 0.005% Eye Drops - OU 1 drop HS SAKSHI Administration Metoprolol Tartrate 25 mg 04/05/18 09:30 04/16/18 05:27 Lopressor - PO 25 mg TID SAKSHI Administration Pantoprazole Sodium 40 mg 04/08/18 10:00 04/16/18 09:08 Protonix - PO 40 mg BID SAKSHI Administration Sertraline HCl 50 mg 04/08/18 10:00 04/16/18 09:08 Zoloft - PO 50 mg DAILY SAKSHI Administration Warfarin Sodium 5 mg 04/15/18 18:00 04/15/18 16:58 Coumadin - PO 5 mg DAILY@1800 SAKSHI Administration Vital Signs Period Temp Pulse Resp BP Sys/Daniel Pulse Ox Last 24 Hr 97.6 F-98.1 F 67-77 16-20 102-127/55-72 97 Constitutional: Yes: No Distress, Calm Eyes: No: Sclera Icterus HENT: No: Nasal Congestion Cardiovascular: Yes: Pulse Irregular, S1, S2, Other (PMI non diplaced). No: Gallop, Murmur Respiratory: Yes: CTA Bilaterally. No: Accessory Muscle Use, Rales, Wheezes Gastrointestinal: Yes: Normal Bowel Sounds, Soft. No: Tenderness Extremities: No: Cyanosis Edema: No Integumentary: No: Jaundice Neurological: Yes: Alert, Oriented (x3) Psychiatric: No: Agitated CBC, BMP 04/16/18 06:30 04/16/18 06:30 EKG 12/30 (19:17): poor baseline, prob fib/flutter. HR 106. 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 nonsp ST-Ts I/avL EKG 04/04: afib, more pronounced STs lateral leads ECG 04/05: afib, no change vs 04/04 CXR: clear lungs/pleura Echo 03/22: nl LV size. mild decr EF (45-50%). RWMA tds. inferolateral wall appears mildly HK. nl RV. mild TR. PASP at least 49. tele: afib, rate controlled a/p: LGIB, preop CV eval for FOC and/or EGD: -per GI -INR was high (>5), warfarin reversed with vit K -he declined GIB workup Afib: -rapid HR initially due to active bleeding with hypotension, improving with improved hemodynamics -low BP limits AVN blocking med options. low GFR risk for digoxin -tolerating moderate dose lopressor with soft but stable bp's, HRs reasonable-- stable on tele, continue same dose -h/o CVA, hi CHADS VASC score. -was on warfarin at home. INR >5 here, GIB--AC held. No further melena/rectal bleeding and hgb stable. Pt refuses GIB w/u. - warfarin has been resumed with plan to monitor INR closely and hope for preventing bleeding if can be maintained more consistently in 2-3 range. -pt is high risk for CVA if AC is permanently discontinued. he is also high risk for adverse CV outcome if has severe bleeding (based on the presentation this time). he was seeing Dr. Cardenas previously for cardio, has not returned recently (Dr. Cardenas has left the area). Pt was advised he will need to d/w Dr. Holley to arrange close INR f/u and ongoing cardio care as outpt (dr holley informed of plan as well - cont wafarin, close followup of INR, goal 2-3 NSTEMI: -trop peaked 4.5, now downtrending -likely secondary to acute hypotension/tachy, i.e. deman ischemia/Type II [place] -ECG's stable -echo with mild decr EF, ? regional per report (TDS regional wall motion) -not a candidate for anti-PLTs, AC or invasive interventions regardless given his GIB of unknown source and pt refusing GI eval. -cont BB, HR control as doing. statin. -remains asymptomatic -pt is refusing further testing-- per Dr. Dunlap: d/w'd pt and concern over underyling chronic, stable CAD and cannot say if hi risk or not without further imaging. rec'd pharm MPI for risk stratification. he is very aggravated at prolonged hosp stay and wishes to defer this until can d/w dr holley as outpt. low risk clinically given never had signs of ACS and no ischemic sx's here. d/w' d dr holley who will arrange outpt cardio f/u MELVIN: -baseline creat 1.1 in 02/20 -initial creat 2.4, improved pulm HTN: -at least mild-mod pulm HTN on echo here, possibly high left sided filling pressures due to acute ischemia/rapid AF -outpt f/u HTN: -stable HPL, h/o carotid dz: -cont home atorva cardiac desouza remains stable, dc tele
--- NOTE | 2018-04-16 12:13 | PN ---
Progress Note (short form) - Note Progress Note: RENAL Pt is awake and alert comfortable denies complaints Last Vital Signs Temp Pulse Resp BP Pulse Ox 98.1 F 62 20 119/57 L 97 04/16/18 09:00 04/16/18 09:00 04/16/18 09:00 04/16/18 09:00 04/16/18 09:00 lungs clear cvs s1s2 rr abd soft ext no edema neuro a+ox3 Current Medications Generic Name Dose Route Start Last Admin Trade Name Frerao PRN Reason Stop Dose Admin Acetaminophen 650 mg 04/08/18 21:39 04/08/18 22:13 Tylenol - PO 650 mg Q6H PRN Administration Fever Atorvastatin Calcium 20 mg 04/05/18 22:00 04/15/18 21:09 Lipitor - PO 20 mg HS SAKSHI Administration Sodium Chloride 1,000 mls @ 65 mls/hr 04/15/18 11:45 04/15/18 11:45 1/2 Normal Saline IV 65 mls/hr ASDIR SAKSHI Administration Latanoprost 1 drop 04/05/18 22:00 04/15/18 21:10 Xalatan 0.005% Eye Drops - OU 1 drop HS SAKSHI Administration Metoprolol Tartrate 25 mg 04/05/18 09:30 04/16/18 05:27 Lopressor - PO 25 mg TID SAKSHI Administration Pantoprazole Sodium 40 mg 04/08/18 10:00 04/16/18 09:08 Protonix - PO 40 mg BID SAKSHI Administration Sertraline HCl 50 mg 04/08/18 10:00 04/16/18 09:08 Zoloft - PO 50 mg DAILY SAKSHI Administration Warfarin Sodium 5 mg 04/15/18 18:00 04/15/18 16:58 Coumadin - PO 5 mg DAILY@1800 SAKSHI Administration CBC, BMP 04/16/18 06:30 04/16/18 06:30 IMPRESSION s/p kaci probably from diuresis he seems stable now he is anemic PLAN anemia work up if not already done reduce fluids and observe encourage water intake MV
--- NOTE | 2018-04-16 12:50 | PN ---
Progress Note, Physician Chief Complaint: Mr Upton is without complaint. Denies cp, sob, n/v. - Current Medication List Current Medications: Active Medications Acetaminophen (Tylenol -) 650 mg PO Q6H PRN PRN Reason: Fever Last Admin: 04/08/18 22:13 Dose: 650 mg Atorvastatin Calcium (Lipitor -) 20 mg PO HS [facility] Last Admin: 04/15/18 21:09 Dose: 20 mg Sodium Chloride (1/2 Normal Saline) 1,000 mls @ 42 mls/hr IV ASDIR [facility] Latanoprost (Xalatan 0.005% Eye Drops -) 1 drop OU HS [facility] Last Admin: 04/15/18 21:10 Dose: 1 drop Metoprolol Tartrate (Lopressor -) 25 mg PO TID [facility] Last Admin: 04/16/18 05:27 Dose: 25 mg Pantoprazole Sodium (Protonix -) 40 mg PO BID [facility] Last Admin: 04/16/18 09:08 Dose: 40 mg Sertraline HCl (Zoloft -) 50 mg PO DAILY [facility] Last Admin: 04/16/18 09:08 Dose: 50 mg Warfarin Sodium (Coumadin -) 5 mg PO DAILY@1800 [facility] Last Admin: 04/15/18 16:58 Dose: 5 mg - Objective Vital Signs: Vital Signs Temperature 36.7 C 04/16/18 09:00 Pulse Rate 62 04/16/18 09:00 Respiratory Rate 20 04/16/18 09:00 Blood Pressure 119/57 L 04/16/18 09:00 O2 Sat by Pulse Oximetry (%) 97 04/16/18 09:00 Constitutional: Yes: No Distress, Calm, Obese Cardiovascular: Yes: Pulse Irregular. No: Tachycardia, Gallop, Murmur, Rub Respiratory: Yes: Regular, CTA Bilaterally. No: Rales, Rhonchi, Wheezes Gastrointestinal: Yes: Normal Bowel Sounds, Soft. No: Distention, Tenderness Extremities: Yes: WNL Edema: No Labs: CBC, BMP 04/16/18 06:30 04/16/18 06:30 INR, PTT INR 2.04 (0.83-1.09) H 04/16/18 06:30 Problem List - Problems (1) GIB (gastrointestinal bleeding) Code(s): K92.2 - GASTROINTESTINAL HEMORRHAGE, UNSPECIFIED Qualifiers: GI bleed type/associated pathology: anorectal hemorrhage Qualified Code(s) : K62.5 - Hemorrhage of anus and rectum (2) Sepsis Code(s): A41.9 - SEPSIS, UNSPECIFIED ORGANISM (3) Lactic acid acidosis Code(s): E87.2 - ACIDOSIS (4) Warfarin toxicity Code(s): T45.511A - POISONING BY ANTICOAGULANTS, ACCIDENTAL, INIT (5) NSTEMI (non-ST elevated myocardial infarction) Code(s): I21.4 - NON-ST ELEVATION (NSTEMI) MYOCARDIAL INFARCTION (6) Acute kidney insufficiency Code(s): N28.9 - DISORDER OF KIDNEY AND URETER, UNSPECIFIED (7) Anemia Code(s): D64.9 - ANEMIA, UNSPECIFIED Assessment/Plan (1) GIB (gastrointestinal bleeding) Assessment/Plan: -resolved Code(s): K92.2 - GASTROINTESTINAL HEMORRHAGE, UNSPECIFIED Qualifiers: GI bleed type/associated pathology: anorectal hemorrhage Qualified Code(s) : K62.5 - Hemorrhage of anus and rectum (2) Sepsis Assessment/Plan: -resolved Code(s): A41.9 - SEPSIS, UNSPECIFIED ORGANISM (3) Lactic acid acidosis Assessment/Plan: -resolved Code(s): E87.2 - ACIDOSIS (4) Warfarin toxicity Assessment/Plan: -therapeutic today -continue coumadin 5mg daily -recheck INR and cbc, if therapeutic and H/H stable plan for discharge tomorrow Code(s): T45.511A - POISONING BY ANTICOAGULANTS, ACCIDENTAL, INIT (5) NSTEMI (non-ST elevated myocardial infarction) Assessment/Plan: -continue medical management Code(s): I21.4 - NON-ST ELEVATION (NSTEMI) MYOCARDIAL INFARCTION (6) Acute kidney insufficiency Assessment/Plan: -improved -appreciate nephrology assistance -reduce IVF Code(s): N28.9 - DISORDER OF KIDNEY AND URETER, UNSPECIFIED (7) Anemia Assessment/Plan: -stable Code(s): D64.9 - ANEMIA, UNSPECIFIED
[2018-04-16] MEDS: SODIUM CHLORIDE 0.45% 1,000 ML IV SCH ×2 (13:49→21:20)
--- NOTE | 2018-04-16 14:39 | PN ---
Progress Note, Physician History of Present Illness: stable no new issues - Current Medication List Current Medications: Active Medications Acetaminophen (Tylenol -) 650 mg PO Q6H PRN PRN Reason: Fever Last Admin: 04/08/18 22:13 Dose: 650 mg Atorvastatin Calcium (Lipitor -) 20 mg PO HS [facility] Last Admin: 04/15/18 21:09 Dose: 20 mg Sodium Chloride (1/2 Normal Saline) 1,000 mls @ 42 mls/hr IV ASDIR [facility] Last Admin: 04/16/18 13:49 Dose: 42 mls/hr Latanoprost (Xalatan 0.005% Eye Drops -) 1 drop OU HS [facility] Last Admin: 04/15/18 21:10 Dose: 1 drop Metoprolol Tartrate (Lopressor -) 25 mg PO TID [facility] Last Admin: 04/16/18 13:48 Dose: 25 mg Pantoprazole Sodium (Protonix -) 40 mg PO BID [facility] Last Admin: 04/16/18 09:08 Dose: 40 mg Sertraline HCl (Zoloft -) 50 mg PO DAILY [facility] Last Admin: 04/16/18 09:08 Dose: 50 mg Warfarin Sodium (Coumadin -) 5 mg PO DAILY@1800 [facility] Last Admin: 04/15/18 16:58 Dose: 5 mg - Objective Vital Signs: Vital Signs Temperature 98.1 F 04/16/18 09:00 Pulse Rate 62 04/16/18 09:00 Respiratory Rate 20 04/16/18 09:00 Blood Pressure 119/57 L 04/16/18 09:00 O2 Sat by Pulse Oximetry (%) 97 04/16/18 09:00 Constitutional: Yes: No Distress, Calm Cardiovascular: Yes: Pulse Irregular Respiratory: Yes: Regular, CTA Bilaterally Gastrointestinal: Yes: Normal Bowel Sounds, Soft Musculoskeletal: Yes: WNL Extremities: Yes: WNL Neurological: Yes: Alert, Oriented Psychiatric: Yes: Alert, Oriented Labs: CBC, BMP 04/16/18 06:30 04/16/18 06:30 INR, PTT INR 2.04 (0.83-1.09) H 04/16/18 06:30 Assessment/Plan Problem List - Problems (1) GIB (gastrointestinal bleeding) Code(s): K92.2 - GASTROINTESTINAL HEMORRHAGE, UNSPECIFIED Qualifiers: GI bleed type/associated pathology: anorectal hemorrhage Qualified Code(s) : K62.5 - Hemorrhage of anus and rectum (2) Sepsis Code(s): A41.9 - SEPSIS, UNSPECIFIED ORGANISM (3) Lactic acid acidosis Code(s): E87.2 - ACIDOSIS (4) Warfarin toxicity Code(s): T45.511A - POISONING BY ANTICOAGULANTS, ACCIDENTAL, INIT (5) NSTEMI (non-ST elevated myocardial infarction) Code(s): I21.4 - NON-ST ELEVATION (NSTEMI) MYOCARDIAL INFARCTION (6) Acute kidney insufficiency Code(s): N28.9 - DISORDER OF KIDNEY AND URETER, UNSPECIFIED (7) Anemia Code(s): D64.9 - ANEMIA, UNSPECIFIED plan continue current mgmt monitor of of abx inr rest as per the team
[2018-04-16] MEDS: WARFARIN NA 5 MG TABLET (UD) PO SCH (17:24)
[2018-04-16] MEDS ORDERED: PT OWN MED DRAWER 7, Y5N ONE (21:02)
[2018-04-16] MEDS: ATORVASTATIN CA 20 MG TABLET (FP) PO SCH (21:20)
[2018-04-16] MEDS: LATANOPROST 0.005% OPHTH SOLN 2.5ML BOTTLE OU SCH (21:21)
[2018-04-17] MEDS: METOPROLOL TARTRATE 25 MG TABLET (FP) PO SCH ×2 (06:04→15:23)
[2018-04-17 07:59] LABS: BASO % 1.1 % (0-2.0); EOS % 2.1 % (0-4.5); HEMATOCRIT 30.5 % (35.4-49); HEMOGLOBIN 9.9 GM/dL (11.7-16.9); LYMPH % 12.4 % (8-40); MCH 30.2 pg (25.7-33.7); MCHC 32.4 g/dl (32.0-35.9); MEAN CELL VOLUME 93.2 fl (80-96); MEAN PLT VOLUME 9.4 fl (7.5-11.1); MONO % 8.1 % (3.8-10.2); NEUT % 76.3 % (42.8-82.8); PLATELET COUNT 186 K/MM3 (134-434); RBC 3.27 M/mm3 (4.00-5.60); RDW 17.1 % (11.9-15.9); WHITE BLOOD COUNT 4.8 K/mm3 (4.0-10.0)
[2018-04-17 08:13] LABS: INR 2.11 (0.83-1.09); PROTHROMBIN TIME (PATIENT) 25.1 SEC (9.7-13.0)
[2018-04-17 08:28] LABS: ANION GAP 4 MMOL/L (8-16); BLOOD UREA NITROGEN 16 mg/dL (7-18); CALCIUM 8.5 mg/dL (8.5-10.1); CHLORIDE 103 mmol/L (98-107); CO2 32 mmol/L (21-32); CREATININE 1.2 mg/dL (0.55-1.3); GLUCOSE,RANDOM 98 mg/dL (74-106); POTASSIUM 4.1 mmol/L (3.5-5.1); SODIUM 139 mmol/L (136-145)
[2018-04-17] MEDS: PANTOPRAZOLE 40 MG TABLET (FP) PO SCH (09:14)
[2018-04-17] MEDS: SERTRALINE HCL 50 MG TABLET (FP) PO SCH (09:14)
--- NOTE | 2018-04-17 10:26 | PN ---
Progress Note (short form) - Note Progress Note: Chief Complaint: GIB History of Present Illness: no rectal bleeding or melena. no chest pain, palps, dizziness, lightheadedness. Current Medications Generic Name Dose Route Start Last Admin Trade Name Frerao PRN Reason Stop Dose Admin Acetaminophen 650 mg 04/08/18 21:39 04/08/18 22:13 Tylenol - PO 650 mg Q6H PRN Administration Fever Atorvastatin Calcium 20 mg 04/05/18 22:00 04/16/18 21:20 Lipitor - PO 20 mg HS SAKSHI Administration Sodium Chloride 1,000 mls @ 42 mls/hr 04/16/18 12:13 04/16/18 21:20 1/2 Normal Saline IV 42 mls/hr ASDIR SAKSHI Administration Latanoprost 1 drop 04/05/18 22:00 04/16/18 21:21 Xalatan 0.005% Eye Drops - OU 1 drop HS SAKSHI Administration Metoprolol Tartrate 25 mg 04/05/18 09:30 04/17/18 06:04 Lopressor - PO 25 mg TID SAKSHI Administration Pantoprazole Sodium 40 mg 04/08/18 10:00 04/17/18 09:14 Protonix - PO 40 mg BID SAKSHI Administration Sertraline HCl 50 mg 04/08/18 10:00 04/17/18 09:14 Zoloft - PO 50 mg DAILY SAKSHI Administration Warfarin Sodium 5 mg 04/15/18 18:00 04/16/18 17:24 Coumadin - PO 5 mg DAILY@1800 SAKSHI Administration Vital Signs Period Temp Pulse Resp BP Sys/Daniel Pulse Ox Last 24 Hr 97.4 F-98.2 F 64-76 18-20 97-112/56-58 97 Constitutional: Yes: No Distress, Calm Eyes: No: Sclera Icterus HENT: No: Nasal Congestion Cardiovascular: Yes: Pulse Irregular, S1, S2, Other (PMI non diplaced). No: Gallop, Murmur Respiratory: Yes: CTA Bilaterally. No: Accessory Muscle Use, Rales, Wheezes Gastrointestinal: Yes: Normal Bowel Sounds, Soft. No: Tenderness Extremities: No: Cyanosis Edema: No Integumentary: No: Jaundice Neurological: Yes: Alert, Oriented (x3) Psychiatric: No: Agitated CBC, BMP 04/17/18 06:30 04/17/18 06:30 EKG 12/30 (19:17): poor baseline, prob fib/flutter. HR 106. 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 nonsp ST-Ts I/avL EKG 04/04: afib, more pronounced STs lateral leads ECG 04/05: afib, no change vs 04/04 CXR: clear lungs/pleura Echo 03/22: nl LV size. mild decr EF (45-50%). RWMA tds. inferolateral wall appears mildly HK. nl RV. mild TR. PASP at least 49. tele: afib, rate controlled a/p: LGIB, preop CV eval for FOC and/or EGD: -per GI -INR was high (>5), warfarin reversed with vit K -he declined GIB workup Afib: -rapid HR initially due to active bleeding with hypotension, improving with improved hemodynamics -low BP limits AVN blocking med options. low GFR risk for digoxin -tolerating moderate dose lopressor with soft but stable bp's, HRs reasonable-- stable on tele, continue same dose -h/o CVA, hi CHADS VASC score. -was on warfarin at home. INR >5 here, GIB--AC held. No further melena/rectal bleeding and hgb stable. Pt refuses GIB w/u. - warfarin has been resumed with plan to monitor INR closely and hope for preventing bleeding if can be maintained more consistently in 2-3 range. -pt is high risk for CVA if AC is permanently discontinued. he is also high risk for adverse CV outcome if has severe bleeding (based on the presentation this time). he was seeing Dr. Cardenas previously for cardio, has not returned recently (Dr. Cardenas has left the area). Pt was advised he will need to d/w Dr. Holley to arrange close INR f/u and ongoing cardio care as outpt (dr holley informed of plan as well - cont wafarin, close followup of INR, goal 2-3 NSTEMI: -trop peaked 4.5, now downtrending -likely secondary to acute hypotension/tachy, i.e. deman ischemia/Type II [place] -ECG's stable -echo with mild decr EF, ? regional per report (TDS regional wall motion) -not a candidate for anti-PLTs, AC or invasive interventions regardless given his GIB of unknown source and pt refusing GI eval. -cont BB, HR control as doing. statin. -remains asymptomatic -pt is refusing further testing-- per Dr. Dunlap: d/w'd pt and concern over underyling chronic, stable CAD and cannot say if hi risk or not without further imaging. rec'd pharm MPI for risk stratification. he is very aggravated at prolonged hosp stay and wishes to defer this until can d/w dr holley as outpt. low risk clinically given never had signs of ACS and no ischemic sx's here. d/w' d dr holley who will arrange outpt cardio f/u MELVIN: -baseline creat 1.1 in 02/20 -initial creat 2.4, improved pulm HTN: -at least mild-mod pulm HTN on echo here, possibly high left sided filling pressures due to acute ischemia/rapid AF -outpt f/u HTN: -stable HPL, h/o carotid dz: -cont home atorva cardiac desouza stable for dc
[2018-04-17 11:47] VITALS: TEMP 98.1
--- NOTE | 2018-04-17 12:56 | DS ---
Physical Examination Vital Signs: Vital Signs Temperature 36.7 C 04/17/18 10:00 Pulse Rate 71 04/17/18 10:00 Respiratory Rate 18 04/17/18 10:00 Blood Pressure 110/62 04/17/18 10:00 O2 Sat by Pulse Oximetry (%) 95 04/17/18 10:00 Constitutional: Yes: No Distress, Calm, Obese Cardiovascular: Yes: Pulse Irregular. No: Tachycardia, Gallop, Murmur, Rub Respiratory: Yes: Regular, CTA Bilaterally. No: Rales, Rhonchi, Wheezes Gastrointestinal: Yes: Normal Bowel Sounds, Soft. No: Distention, Tenderness Extremities: Yes: WNL Edema: No Labs: CBC, BMP 04/17/18 06:30 04/17/18 06:30 Discharge Summary Reason For Visit: GASTROINTESTINAL HEMMORAGE Current Active Problems Acute kidney insufficiency (Acute) Anemia (Acute) GIB (gastrointestinal bleeding) (Acute) Hyperkalemia (Acute) Lactic acid acidosis (Acute) NSTEMI (non-ST elevated myocardial infarction) (Acute) Rectal bleed (Acute) Sepsis (Acute) Supratherapeutic INR (Acute) Warfarin toxicity (Acute) Hospital Course: (1) GIB (gastrointestinal bleeding) Code(s): K92.2 - GASTROINTESTINAL HEMORRHAGE, UNSPECIFIED Qualifiers: GI bleed type/associated pathology: anorectal hemorrhage Qualified Code(s) : K62.5 - Hemorrhage of anus and rectum (2) Sepsis Code(s): A41.9 - SEPSIS, UNSPECIFIED ORGANISM (3) Lactic acid acidosis Code(s): E87.2 - ACIDOSIS (4) Warfarin toxicity Code(s): T45.511A - POISONING BY ANTICOAGULANTS, ACCIDENTAL, INIT (5) NSTEMI (non-ST elevated myocardial infarction) Code(s): I21.4 - NON-ST ELEVATION (NSTEMI) MYOCARDIAL INFARCTION (6) Acute kidney insufficiency Code(s): N28.9 - DISORDER OF KIDNEY AND URETER, UNSPECIFIED (7) Anemia Code(s): D64.9 - ANEMIA, UNSPECIFIED Mr Upton is an 87 year old male who came in with GIB secondary to warfarin toxicity. He was admitted to the ICU and because of the anemia he had an NSTEMI. This was further complicated by MELVIN. He was seen by GI, cardiology, and nephrology. He was not anticoagulated secondary to GIB but was treated medically. His INR was reversed and his GIB resolved. He should follow up as an outpatient for a colonoscopy. He was hydrated by nephrology and his renal function improved. He was restarted on coumadin and is now therapeutic. He has not had repeat bleed. He is safe for discharge home. 32 minutes spent in preparation of this discharge Condition: Stable - Instructions Diet, Activity, Other Instructions: resume previous diet and activity Referrals: Kevin Wright MD [Staff Physician] - Jus Villafuerte MD [Staff Physician] - Brandon Rizo MD [Primary Care Provider] - 1 Week Disposition: HOME - Home Medications Comprehensive Discharge Medication List: Ambulatory Orders Atorvastatin Ca [Lipitor] 20 mg PO DAILY 04/03/18 Latanoprost/Pf [Latanoprost 0.005% Eye Drop] 1 drop OU HS 04/03/18 Sertraline HCl [Zoloft -] 50 mg PO DAILY 04/03/18 Warfarin Sodium 4 mg PO HS 04/03/18 Metoprolol Tartrate [Lopressor -] 25 mg PO TID #90 tablet 04/17/18 Pantoprazole Sodium [Protonix -] 40 mg PO DAILY #30 tablet.ec 04/17/18
--- NOTE | 2018-04-17 13:19 | PN ---
Progress Note, Physician History of Present Illness: stable no new issues - Current Medication List Current Medications: Active Medications Acetaminophen (Tylenol -) 650 mg PO Q6H PRN PRN Reason: Fever Last Admin: 04/08/18 22:13 Dose: 650 mg Atorvastatin Calcium (Lipitor -) 20 mg PO HS [facility] Last Admin: 04/16/18 21:20 Dose: 20 mg Sodium Chloride (1/2 Normal Saline) 1,000 mls @ 42 mls/hr IV ASDIR [facility] Last Admin: 04/16/18 21:20 Dose: 42 mls/hr Latanoprost (Xalatan 0.005% Eye Drops -) 1 drop OU HS [facility] Last Admin: 04/16/18 21:21 Dose: 1 drop Metoprolol Tartrate (Lopressor -) 25 mg PO TID [facility] Last Admin: 04/17/18 06:04 Dose: 25 mg Pantoprazole Sodium (Protonix -) 40 mg PO BID [facility] Last Admin: 04/17/18 09:14 Dose: 40 mg Sertraline HCl (Zoloft -) 50 mg PO DAILY [facility] Last Admin: 04/17/18 09:14 Dose: 50 mg Warfarin Sodium (Coumadin -) 5 mg PO DAILY@1800 [facility] Last Admin: 04/16/18 17:24 Dose: 5 mg - Objective Vital Signs: Vital Signs Temperature 98.1 F 04/17/18 10:00 Pulse Rate 71 04/17/18 10:00 Respiratory Rate 18 04/17/18 10:00 Blood Pressure 110/62 04/17/18 10:00 O2 Sat by Pulse Oximetry (%) 95 04/17/18 10:00 Constitutional: Yes: No Distress, Calm Cardiovascular: Yes: Pulse Irregular Respiratory: Yes: Regular, CTA Bilaterally Gastrointestinal: Yes: Normal Bowel Sounds, Soft Musculoskeletal: Yes: WNL Extremities: Yes: WNL Neurological: Yes: Alert, Oriented Psychiatric: Yes: Alert, Oriented Labs: CBC, BMP 04/17/18 06:30 04/17/18 06:30 INR, PTT INR 2.11 (0.83-1.09) H 04/17/18 06:30 Assessment/Plan Problem List - Problems (1) GIB (gastrointestinal bleeding) Code(s): K92.2 - GASTROINTESTINAL HEMORRHAGE, UNSPECIFIED Qualifiers: GI bleed type/associated pathology: anorectal hemorrhage Qualified Code(s) : K62.5 - Hemorrhage of anus and rectum (2) Sepsis Code(s): A41.9 - SEPSIS, UNSPECIFIED ORGANISM (3) Lactic acid acidosis Code(s): E87.2 - ACIDOSIS (4) Warfarin toxicity Code(s): T45.511A - POISONING BY ANTICOAGULANTS, ACCIDENTAL, INIT (5) NSTEMI (non-ST elevated myocardial infarction) Code(s): I21.4 - NON-ST ELEVATION (NSTEMI) MYOCARDIAL INFARCTION (6) Acute kidney insufficiency Code(s): N28.9 - DISORDER OF KIDNEY AND URETER, UNSPECIFIED (7) Anemia Code(s): D64.9 - ANEMIA, UNSPECIFIED plan continue current mgmt monitor of of abx inr rest as per the team no more bleeding
[2018-04-17 15:10] VITALS: BP 109/60; PULSE 83
[2018-04-17] MEDS: SODIUM CHLORIDE 0.45% 1,000 ML IV SCH (15:23)
== END 2018-04-17 16:58 | disposition home or self-care (01) | DRG 377 ==
LOC: JER 18:54 → JERBED 22:02 → JICU 04-04 02:04 → J4S 04-04 20:31
PROVIDERS: ADMIT Internal Medicine; ATTEND Internal Medicine
PROC: 30233N1 Transfusion of Nonautologous Red Blood Cells into Peripheral Vein, Percutaneous Approach (ICD-10-PCS; principal; 2018-04-04)
PROC: 30233L1 Transfusion of Nonautologous Fresh Plasma into Peripheral Vein, Percutaneous Approach (ICD-10-PCS; 2018-04-04)
PROC: 30233K1 Transfusion of Nonautologous Frozen Plasma into Peripheral Vein, Percutaneous Approach (ICD-10-PCS; 2018-04-04)
DX: K57.91 Diverticulosis of intestine, part unspecified, without perforation or abscess with bleeding (principal); I21.4 Non-ST elevation (NSTEMI) myocardial infarction; N17.9 Acute kidney failure, unspecified; E87.2 Acidosis; I69.354 Hemiplegia and hemiparesis following cerebral infarction affecting left non-dominant side; I48.92 Unspecified atrial flutter; N18.4 Chronic kidney disease, stage 4 (severe); T45.511A Poisoning by anticoagulants, accidental (unintentional), initial encounter; E87.5 Hyperkalemia; E78.5 Hyperlipidemia, unspecified; D64.9 Anemia, unspecified; E66.9 Obesity, unspecified; Z68.32 Body mass index [BMI] 32.0-32.9, adult; I48.91 Unspecified atrial fibrillation; I95.9 Hypotension, unspecified; I27.20 Pulmonary hypertension, unspecified; D72.829 Elevated white blood cell count, unspecified; I12.9 Hypertensive chronic kidney disease with stage 1 through stage 4 chronic kidney disease, or unspecified chronic kidney disease
CPT/HCPCS: 36415; 36430; 71045-TC-FY; 76775-TC; 80048; 80053; 81003; 81015; 82272; 82436; 82550; 82553; 82570; 83605; 83735; 84100; 84133; 84300; 84484; 85025; 85027; 85610; 85730; 86850; 86900; 86901; 86922; 87040; 87086; 93005; 93010; 93306-TC; 94761; 97116-GP; 97162-GP; 99285-25; J7030; P9017; P9038; P9058